=== PATIENT | male | born 1965 | race African-American/Black ===

== ENCOUNTER 2018-05-14 16:34 | Inpatient (IN) ==
[2018-05-14] MEDS ORDERED: Bisacodyl 10 MG Supp RECTAL PRN (17:36)
[2018-05-14] MEDS ORDERED: Acetaminophen 325 MG Tablet PO PRN (17:36)
[2018-05-14] MEDS ORDERED: Sod Chloride 0.9% Inj 1,000 ML IV.CONT ONE (17:46)
[2018-05-14] MEDS ORDERED: ceFAZolin 2 GM Premix Inj 2 GM/50 ML PIGGYBACK IV.SIG SCH (18:00)
--- NOTE | 2018-05-14 18:23 | P.CONTS ---
History of Present Illness Service: Transplant Surgery Consult date: 05/14/18 Reason for Consult: Asdmit for possible donor renal transplant Primary Care Provider: UNKNOWN Chief Complaint: ESRD History of Present Illness: 53 yom with ESRD due to htn. Was transplanted at [facility] on 1997. had a life threatening GI bleed in 2013, which led to failure of his graft. Returned to HD on 07/14/2014. is currently also listed at [facility]. 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 A possible kidney donor has been found for him (final transplant crossmatch is negative). Donor UNOS ID: [id number]. Mr Brent Askew required hemodialysis support since 2013. His last dialysis was this morning. And at the time of admission, patient makes hust drops of urine daily. In the recent days He denies any fevers, recent hospitalizations, and any significant change in his health since he was last seen in our [facility]. Review of Systems Constitutional: Denies anorexia, Denies body ache(s), Denies chills, Denies daytime sleepiness, Denies excessive sweating, Denies fatigue, Denies fever(s), Denies headache(s), Denies increased appetite, Denies lack of energy, Denies malaise, Denies night sweats, Denies weakness, Denies weight gain, Denies weight loss, Denies other Eyes: Denies blind spots, Denies blurry vision, Denies bulging eyes, Denies change in vision, Denies double vision, Denies discharge, Denies dry eyes, Denies floaters, Denies irritation, Denies itchy eyes, Denies loss of vision, Denies pain, Denies requires corrective lenses, Denies sensitivity to light, Denies other Ears, Nose, Mouth, and Throat: Denies abnormal hearing, Denies bleeding gums, Denies bad breath, Denies change in voice, Denies dental pain, Denies difficulty swallowing, Denies dizziness, Denies dry mouth, Denies ear discharge , Denies ear pain, Denies facial pain, Denies headache(s), Denies hearing loss, Denies hoarseness, Denies lip swelling, Denies nosebleed, Denies mouth lesions, Denies mouth pain, Denies nasal congestion, Denies nasal discharge, Denies nasal obstruction, Denies nasal trauma, Denies neck lump, Denies neck pain, Denies nose pain, Denies pain with swallowing, Denies poor balance, Denies post nasal drip, Denies ringing in the ears, Denies sinus pain, Denies sinus pressure , Denies sore throat, Denies throat swelling, Denies tongue swelling, Denies other Cardiovascular: Denies chest pain, Denies chest pain at rest, Denies chest pain with activity, Denies excessive sweating, Denies fainting, Denies fast heart rate, Denies foot swelling, Denies generalized swelling, Denies irregular heart rhythm, Denies leg pain with activity, Denies leg sores, Denies leg swelling, Denies lightheadedness, Denies radiating jaw, neck or arm pain, Denies rapid, pounding, or irregular heartbeat, Denies shortness of breath, Denies shortness of breath with activity, Denies shortness of breath when lying down, Denies shortness of breath causing sudden awakening, Denies slow heart rate, Denies other Respiratory: Denies change in phlegm color, Denies chest congestion, Denies cough, Denies coughing up blood, Denies excessive phlegm production, Denies pain on inspiration, Denies pain with cough, Denies shortness of breath, Denies shortness of breath with activity, Denies snoring, Denies stridor, Denies wheezing, Denies other Gastrointestinal: Reports loose stools, Denies abdominal pain, Denies belching, Denies black, tarry stools, Denies bloating, Denies bright, red blood in stools , Denies change in bowel habits, Denies constant urge to pass stool, Denies change in stools, Denies coffee ground vomit, Denies constipation, Denies cramping, Denies difficulty swallowing, Denies excessive passing of gas, Denies feeling full early, Denies heartburn, Denies incontinent of stools, Denies nausea, Denies pain with swallowing, Denies vomiting, Denies vomiting blood, Denies other Comments: has had 3-4 loose stools daily since his subtotal colectomy in 2013. Genitourinary: Denies blood in semen, Denies blood in urine, Denies decreased urination, Denies difficulty urinating, Denies difficulty with ejaculations, Denies erectile dysfunction, Denies genital lesions, Denies genital pain, Denies painful urination, Denies side pain, Denies frequent nighttime urination , Denies painful ejaculations, Denies penile discharge, Denies scrotal swelling , Denies testicle lump, Denies testicle pain, Denies urinary frequency, Denies urinary hesitancy, Denies urinary incontinence, Denies urinary urgency, Denies other Comments: Has only made drops of urine daily since renal graft failed in 2013. Musculoskeletal: Denies abnormal walking, Denies back pain, Denies body aches, Denies decreased muscle mass, Denies deformity, Denies joint pain, Denies joint swelling, Denies limited joint movement, Denies loss of height, Denies muscle cramps, Denies muscle weakness, Denies neck pain, Denies numbness, Denies radiating pain into limb, Denies stiffness, Denies tingling, Denies other Skin/Breast: Denies acne, Denies bleeding lesions, Denies boil, Denies breast swelling, Denies breast skin changes, Denies breast pain, Denies breast lump, Denies change in breast shape, Denies change in hair, Denies change in skin color, Denies changing lesions, Denies dry skin, Denies excessive hair growth, Denies hair loss, Denies itching, Denies lesions, Denies nail changes, Denies new lesions, Denies nipple discharge, Denies non-healing lesions, Denies redness , Denies sensitivity to light, Denies rash, Denies skin pain, Denies skin ulcer , Denies sores, Denies stretch garzon, Denies unusual bruising, Denies wounds, Denies yellowing of the skin, Denies other Neurologic: Denies abnormal hearing, Denies abnormal movements, Denies abnormal speech, Denies abnormal walking, Denies behavioral changes, Denies burning sensations, Denies confusion, Denies dizziness, Denies fainting, Denies frequent falls, Denies headache(s), Denies lack of coordination, Denies localized weakness, Denies loss of vision, Denies memory loss, Denies numbness, Denies other visual disturbances, Denies radiating pain, Denies restless legs, Denies convulsions, Denies seizure-like activity, Denies sensory deficit, Denies tingling, Denies tingling/numbness/burning sensations, Denies tremor(s), Denies unsteadiness, Denies weakness, Denies other Psychiatric: Denies abnormal sleep pattern, Denies anxiety, Denies behavioral changes, Denies change in appetite, Denies change in sex drive, Denies confusion , Denies depression, Denies difficulty concentrating, Denies hearing things others do not hear, Denies hopelessness, Denies irritability, Denies lack of enjoyment, Denies memory loss, Denies mood swings, Denies panic attacks, Denies paranoia, Denies seeing things others do not see, Denies sensing things others do not sense, Denies tactile hallucinations, Denies thoughts of hurting/killing others, Denies thoughts of hurting/killing yourself, Denies other Endocrine: Denies cold intolerance, Denies excessive sweating, Denies flushing, Denies heat intolerance, Denies increased hunger, Denies increased thirst, Denies increased urination, Denies rapid, pounding, or irregular heartbeat, Denies other Hematologic/Lymphatic: Denies easy bleeding, Denies easy bruising, Denies enlarged lymph nodes, Denies other Allergic/Immunologic: Denies GI upset with certain foods, Denies hives, Denies itchy eyes, Denies lip swelling, Denies seasonal runny nose, Denies throat swelling, Denies tongue swelling, Denies wheezing, Denies other PMFSH - History History Provided By: Patient - Medical History Medical History: Medical History (Last Reviewed 05/14/18 @ 18:09 by Timmy Redman MD) Arteriovenous graft for hemodialysis in place, primary Gout HTN (hypertension) Pneumonia Renal transplant failure and rejection Sleep apnea - Surgical History Surgical History: Surgical History (Last Reviewed 05/14/18 @ 18:09 by Timmy Redman MD) H/O colectomy History of hip replacement, total Renal transplant recipient - Family History Family History: Family History (Last Reviewed 05/14/18 @ 18:09 by Timmy Redman MD) Father HTN (hypertension) Mother Diabetes 1.5, managed as type 2 S/P CABG x 3 HTN (hypertension) - Social History I have reviewed the patient's Social History: Yes - Tobacco History Second Hand Smoke Exposure: No Smoking Status: Never smoker - Alcohol History How Often Do You Have a Drink Containing Alcohol: Never - Substance Use History Substance History: No History of Abuse - Travel History History of Recent Travel: No Recent Travel in the [place] Within the Last 8 Weeks: No Recent Travel Out of the Country Within the Last 8 Weeks: No Medications and Allergies Active Medications: Active Medications Acetaminophen (Tylenol) 650 mg PO Q4H PRN PRN Reason: Headache, fever, pain 1-4 Al Hydroxide/Mg Hydroxide (Milk Of Magnesia Liq) 30 ml PO Q12H PRN PRN Reason: Mild Constipation Bisacodyl (Dulcolax Supp) 10 mg RECTAL DAILY PRN PRN Reason: SEVERE CONSITIPATION Cefazolin Sodium/Dextrose (Ancef 2 Gm Premix Inj) 2 gm in 50 mls @ 100 mls/hr IV.SIG BUTADIENE COMPRESSOR OPERATOR FRANSISCA Stop: 05/17/18 17:48 Sodium Chloride (Ns Inj) 1,000 mls @ 40 mls/hr IV.CONT .Q24H ONE Stop: 05/15/18 17:45 Lactulose (Lactulose Liq) 30 ml PO DAILY PRN PRN Reason: SEVERE CONSITIPATION Mycophenolate Mofetil (Cellcept) 1,000 mg PO ONCE [facility] Stop: 05/17/18 17:47 Ondansetron HCl (Zofran Inj) 4 mg IV.PUSH Q6H PRN PRN Reason: NAUSEA OR VOMITING Sennosides (Senokot) 17.2 mg PO Q12H PRN PRN Reason: Moderate Constipation Sodium Chloride (Ns Flush) 2 ml IV.FLUSH BID FRANSISCA Sodium Chloride (Ns Flush) 2 ml IV.FLUSH UNSCH PRN PRN Reason: FLUSH AFTER USING IV ACCESS Allergies Allergy/AdvReac Type Severity Reaction Status Date / Time No Known Allergies Allergy Unverified 12/28/17 13:34 Home Medications Medication Instructions Recorded Confirmed Type aspirin [Aspirin Low Dose] 81 mg PO DAILY 12/28/17 12/28/17 History colchicine [Colcrys] 0.6 mg PO DAILY PRN 12/28/17 12/28/17 History famotidine [Pepcid] 20 mg PO BID 12/28/17 12/28/17 History lanthanum [Fosrenol] 2,000 mg PO TID 12/28/17 12/28/17 History sevelamer carbonate [Renvela] 3,200 mg PO Q8HR 12/28/17 12/28/17 History Physical Exam - Constitutional no acute distress - Routine HEENT Exam Head: Present: normocephalic, atraumatic Eye: Present: EOMI ENT: Present: mucous membranes moist - Routine Neck Exam Present: supple, full ROM - Routine Respiratory Exam Present: CTA bilaterally - Routine Cardiovascular Exam Present: RRR, S1, S2 - Routine Abdominal Exam Present: soft, normoactive bowel sounds - Routine Exam Comments: No testicular masses - Routine Extremities Exam Present: pulses intact Comments: palp fem/DP/PT bilaterally - Routine Skin Exam Present: intact - Routine Neurological Exam Present: alert, oriented X3 - Detailed Neurological Exam: Coma Scale Verbal Response: Oriented - Routine Psychiatric Exam Present: normal affect, normal thought process Assessment and Plan - Assessment (1) Diabetes 1.5, managed as type 2 Code(s): G47.30 - Sleep apnea, unspecified Status: Acute (2) HTN (hypertension) Code(s): M10.9 - Gout, unspecified Status: Acute - Plan Mr Brent Askew has ESRD secondary to DM/htn, and is being admitted for possible kidney transplantation. The patient will be consented for procedure and transfusion A [facility] increased Risk Consent is not required. The patient is being admitted to the Hospitalists Service. The Transplant Nephrology Service will be consulted. The patient will be assigned to Case Management/Inpatient Status
[2018-05-14] MEDS ORDERED: DOPamine 800 MG/500 ML Premix 800 MG/500 ML PLAST..BAG IV.CONT ONE (18:24)
[2018-05-14 18:32] LABS: Baso % (Auto) 0.6 % (0.0-2.0); Eos # (Auto) 0.1 th/mm3 (0.0-0.4); Eos % (Auto) 1.7 % (0.0-4.0); Hematocrit 31.6 % (39.0-51.0); Hemoglobin 11.3 gm/dL (13.0-17.0); Lymph # (Auto) 2.3 th/mm3 (1.0-4.8); Lymph % (Auto) 41.3 % (9.0-44.0); Mean Corpuscular HGB Conc 35.8 % (32.0-36.0); Mean Corpuscular Volume 103.3 fL (80.0-100.0); Mean Platelet Volume 8.2 fL (7.0-11.0); Mono # (Auto) 0.5 th/mm3 (0.0-0.9); Mono % (Auto) 9.3 % (0.0-8.0); Neut # (Auto) 2.7 th/mm3 (1.8-7.7); Neut % (Auto) 47.1 % (16.0-70.0); Platelet Count 187 th/mm3 (150-450); Red Blood Count 3.06 mil/mm3 (4.50-5.90); Red Cell Distribution Width 13.5 % (11.6-17.2); White Blood Count 5.7 th/mm3 (4.0-11.0)
[2018-05-14] MEDS ORDERED: Hydrocortisone Sod Succinate 100 MG Vial IV.PUSH PRN (18:38)
[2018-05-14] MEDS ORDERED: SODIUM CHLOR 0.9% IV.SIG ONE ×2 (18:38→20:00)
[2018-05-14] MEDS ORDERED: ANTITHYMOCYTE IG IV.SIG ONE ×2 (18:38→20:00)
--- NOTE | 2018-05-14 18:45 | XR ---
EXAM DATE: 05/14/2018 6:37 PM EST AGE/SEX: 53 years / Male INDICATIONS: Evaluate for pneumonia, pneumothorax, or communicable disease. Pre-op for kidney transp lant. CLINICAL DATA: This is the patient's initial encounter. Patient reports that signs and symptoms have been present for 1 day and indicates a pain score of 0/10. MEDICAL/SURGICAL HISTORY: Diabetes mellitus type II. Hypertension. . Renal transplant. COMPARISON: No prior exams available for comparison. FINDINGS: Dialysis catheter overlies superior vena cava. Subclavian stent present. Minimal basilar atelectasis. No effusion. No dense consolidation. Heart size normal. CONCLUSION: Dialysis catheter tip in superior vena cava. Left subclavian stent present. Minimal basilar atelectas is. Electronically signed by: Brent Colon MD 05/14/2018 6:44 PM EST
[2018-05-14 18:52] LABS: Albumin 3.6 g/dL (3.4-5.0); Anion Gap 5 meq/L (5-15); Aspartate Aminotransferase 6 U/L (15-37); Blood Urea Nitrogen 25 mg/dL (7-18); Carbon Dioxide 31.7 meq/L (21.0-32.0); Chloride 99 meq/L (98-107); Glomerular Filtration Rate 7 mL/min (>89); Glucose,Random 92 mg/dL (74-106); Potassium 4.2 meq/L (3.5-5.1); Sodium 136 meq/L (136-145)
--- NOTE | 2018-05-14 18:52 | P.HPIM ---
History of Present Illness Primary Care Physician: UNKNOWN Chief Complaint: I am looking forward to surgery History of Present Illness: 53-year-old male with a history of end-stage renal disease on hemodialysis due to a failed transplant 2 years ago when he had a massive GI bleed requiring total colectomy and started hemodialysis on July 14, 2014 presents to the hospital for renal transplant with Dr. Redman. Of note, patient had a previous kidney transplant on January of 1998 which failed after the massive GI bleed. He reports no complaint chest pain or shortness of breath. He does not have too much urine output and denies any symptoms of dysuria or frequency or urgency. Denies any chills or fever. He is looking forward to this transplant. Diagnosis (1) Diabetes 1.5, managed as type 2: (2) HTN (hypertension): Inpatient Certification Inpatient Certification: I certify that the inpatient services were ordered in accordance with Medicare regulations governing the order. This includes certification that hospital inpatient services are reasonable and necessary and in the case of services not specified as inpatient-only under 42 CFR 419.22(n), that they are appropriately provided as inpatient services in accordance to with the 2-midnight benchmark under 43 CFR 412.3(e) Estimated Total Length of Stay (Days): 3 Plans for Post Hospital Care: Home Review of Systems Constitutional: Reports as per HPI, Reports chills, Reports fatigue, Reports fever(s) and Denies headache(s) Eyes: Denies blurry vision, Denies change in vision and Denies eye pain Ears, Nose, Mouth, and Throat: Denies abnormal hearing, Denies headache(s), Denies mouth pain, Denies nasal congestion, Denies neck pain and Denies sore throat Cardiovascular: Denies chest pain, Denies pedal edema, Denies palpitations and Denies dyspnea Respiratory: Denies cough and Denies dyspnea Gastrointestinal: Denies abdominal pain, Denies constipation, Denies loose stools, Denies nausea and Denies vomiting Genitourinary: Reports as per HPI, Denies hematuria, Denies urinary frequency, Denies urinary hesitancy, Denies urinary incontinence and Denies urinary urgency Musculoskeletal: Denies back pain, Denies myalgias, Denies arthralgias, Denies neck pain and Denies numbness Skin/Breast: Denies new lesions and Denies rash Neurologic: Denies abnormal hearing, Denies headache(s), Denies focal weakness, Denies memory loss and Denies numbness Psychiatric: Denies anxiety, Denies depression and Denies memory loss Endocrine: Denies cold intolerance, Denies heat intolerance and Denies palpitations Hematologic/Lymphatic: Denies easy bleeding and Denies easy bruising PMFSH History History Provided By: Patient Medical History Medical History Diabetes 1.5, managed as type 2 (Chronic) HTN (hypertension) (Chronic) Arteriovenous graft for hemodialysis in place, primary (Chronic) HTN (hypertension) (Chronic) Renal transplant failure and rejection (Chronic) Pneumonia (Resolved) Surgical History Surgical History H/O colectomy (Chronic) History of hip replacement, total (Chronic) Renal transplant recipient (Chronic) Family History Family History Father HTN (hypertension) Mother Diabetes 1.5, managed as type 2 S/P CABG x 3 HTN (hypertension) Social History Social History Substance History: No History of Abuse Second Hand Smoke Exposure: No Smoking Status: Never smoker How Often Do You Have a Drink Containing Alcohol: Never Hx Recent Travel: No Recent Travel in [facility] within the Last 8 Weeks: No Recent Out of Country Travel within the Last 8 Weeks: No Medications and Allergies Allergies Allergy/AdvReac Type Severity Reaction Status Date / Time No Known Allergies Allergy Unverified 12/28/17 13:34 Home Medications Medication Instructions Recorded Confirmed Type aspirin [Aspirin Low Dose] 81 mg PO DAILY 12/28/17 12/28/17 History colchicine [Colcrys] 0.6 mg PO DAILY PRN 12/28/17 12/28/17 History famotidine [Pepcid] 20 mg PO BID 12/28/17 12/28/17 History lanthanum [Fosrenol] 2,000 mg PO TID 12/28/17 12/28/17 History sevelamer carbonate [Renvela] 3,200 mg PO Q8HR 12/28/17 12/28/17 History Active Medications: Active Medications Acetaminophen (Tylenol) 650 mg PO Q4H PRN PRN Reason: Headache, fever, pain 1-4 Al Hydroxide/Mg Hydroxide (Milk Of Magnesia Liq) 30 ml PO Q12H PRN PRN Reason: Mild Constipation Bisacodyl (Dulcolax Supp) 10 mg RECTAL DAILY PRN PRN Reason: SEVERE CONSITIPATION Diphenhydramine HCl (Benadryl Inj) 50 mg IV.PUSH ONCE PRN PRN Reason: anaphylactic reaction Epinephrine HCl (Epinephrine (1:10,000) Inj) 0.1 mg IV.PUSH ONCE PRN PRN Reason: SEE LABEL COMMENTS Hydrocortisone Sodium Succinate (Solucortef Inj) 200 mg IV.PUSH ONCE PRN PRN Reason: anaphylactic readtion Cefazolin Sodium/Dextrose (Ancef 2 Gm Premix Inj) 2 gm in 50 mls @ 100 mls/hr IV.SIG AIRCRAFT ENGINEER FRANSISCA Stop: 05/17/18 17:48 Sodium Chloride (Ns Inj) 1,000 mls @ 40 mls/hr IV.CONT .Q24H ONE Stop: 05/15/18 17:45 Lymphocyte Immune Globulin 120 (mg/ Sodium Chloride) 500 mls @ 83.333 mls/hr IV.SIG ONCE ONE Stop: 05/15/18 00:37 Lactulose (Lactulose Liq) 30 ml PO DAILY PRN PRN Reason: SEVERE CONSITIPATION Methylprednisolone Sodium Succinate (Solumedrol Inj) 500 mg IV.PUSH ONCE ONE Stop: 05/14/18 20:31 Mycophenolate Mofetil (Cellcept) 1,000 mg PO ONCE FRANSISCA Stop: 05/17/18 17:47 Ondansetron HCl (Zofran Inj) 4 mg IV.PUSH Q6H PRN PRN Reason: NAUSEA OR VOMITING Sennosides (Senokot) 17.2 mg PO Q12H PRN PRN Reason: Moderate Constipation Sodium Chloride (Ns Flush) 2 ml IV.FLUSH BID FRANSISCA Sodium Chloride (Ns Flush) 2 ml IV.FLUSH UNSCH PRN PRN Reason: FLUSH AFTER USING IV ACCESS Physical Exam Narrative: GENERAL: Well-nourished well-developed -[place] male in no acute distress SKIN: Warm and dry. HEAD: Atraumatic. Normocephalic. EYES: Pupils equal and round. No scleral icterus. No injection or drainage. ENT: No nasal bleeding or discharge. Mucous membranes pink and moist. NECK: Trachea midline. No JVD. CARDIOVASCULAR: Regular rate and rhythm. RESPIRATORY: No accessory muscle use. Clear to auscultation. Breath sounds equal bilaterally. GASTROINTESTINAL: Abdomen soft, non-tender, nondistended. Normoactive bowel sounds, midline surgical scar, pelvic scar observed. MUSCULOSKELETAL: Extremities without clubbing, cyanosis, or edema. No obvious deformities. NEUROLOGICAL: Awake and alert to person place time and situation. No obvious cranial nerve deficits. Motor grossly within normal limits. Five out of 5 muscle strength in the arms and legs. Normal speech. PSYCHIATRIC: Appropriate mood and affect; insight and judgment normal. Results Labs CBC & Chem 7: 05/14/18 18:12 05/14/18 18:12 Imaging Impressions Chest X-Ray 05/14/18 17:46 CONCLUSION: Dialysis catheter tip in superior vena cava. Left subclavian stent present. Minimal basilar atelectasis. Caprini VTE Risk Assessment Caprini VTE Risk Assessment: Moderate/High Risk (score >= 2) Caprini Risk Assessment Model: Point Value = 1 Point Value = 2 Point Value = 3 Point Value = 5 Age 41-60 Minor surgery BMI > 25 kg/m2 Swollen legs Varicose veins or History of unexplained or recurrent spontaneous Oral contraceptives or hormone replacement Sepsis (< 1 month) Serious lung disease, including pneumonia (< 1 month) Abnormal pulmonary function Acute myocardial infarction Congestive heart failure (< 1 month) History of inflammatory bowel disease Medical patient at bed rest Age 61-74 Arthroscopic surgery Major open surgery (> 45 min) Laparoscopic surgery (> 45 min) Malignancy Confined to bed (> 72 hours) Immobilizing plaster cast Central venous access Age >= 75 History of VTE Family history of VTE Factor V Leiden Prothrombin 19641H Lupus anticoagulant Anticardiolipin antibodies Elevated serum homocysteine Heparin-induced thrombocytopenia Other congenital or acquired thrombophilia Stroke (< 1 month) Elective arthroplasty Hip, pelvis, or leg fracture Acute spinal cord injury (< 1 month) Prophylaxis Regimen: Total Risk Factor Score Risk Level Prophylaxis Regimen 0-1 Low Early ambulation 2 Moderate Order ONE of the following: *Sequential Compression Device (SCD) *Heparin 5000 units SQ BID 3-4 Higher Order ONE of the following medications: *Heparin 5000 units SQ TID *Enoxaparin/Lovenox 40 mg SQ daily (WT < 150 kg, CrCl > 30 mL/min) *Enoxaparin/Lovenox 30 mg SQ daily (WT < 150 kg, CrCl > 10-29 mL/min) *Enoxaparin/Lovenox 30 mg SQ BID (WT < 150 kg, CrCl > 30 mL/min) AND/OR *Sequential Compression Device (SCD) 5 or more Highest Order ONE of the following medications: *Heparin 5000 units SQ TID (Preferred with Epidurals) *Enoxaparin/Lovenox 40 mg SQ daily (WT < 150 kg, CrCl > 30 mL/min) *Enoxaparin/Lovenox 30 mg SQ daily (WT < 150 kg, CrCl > 10-29 mL/min) *Enoxaparin/Lovenox 30 mg SQ BID (WT < 150 kg, CrCl > 30 mL/min) AND *Sequential Compression Device (SCD) Assessment and Plan (1) Diabetes 1.5, managed as type 2: Code(s): G47.30 - Sleep apnea, unspecified Status: Acute (2) HTN (hypertension): Code(s): M10.9 - Gout, unspecified Status: Acute Plan 53-year-old male with a history of end-stage renal disease due to a failed kidney transplant back in 2014 currently on hemodialysis presents for Renal transplant-Dr. Redman will be proceeding with renal transplant today with consulting battalion fire chief Dr. White. Will obtain a EKG, patient is medically clear to proceed with the surgery today. Keep n.p.o. History of end-stage renal disease on current hemodialysisDr. White has been consulted. History of hypertension -we will monitor closely blood pressures after surgery, clonidine as needed for any uncontrolled blood pressure. History of diabetes mellitus -monitor blood sugars with sliding scale insulin. DVT prophylaxisbilateral SCDs after surgery. _ (1) HTN (hypertension) Qualifiers: Hypertension type:
[2018-05-14 18:53] LABS: Alanine Aminotransferase 16 U/L (12-78)
[2018-05-14 18:55] LABS: Alkaline Phosphatase 109 U/L (45-117); Total Protein 8.4 g/dL (6.4-8.2)
--- NOTE | 2018-05-14 19:03 | P.CONNP ---
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 [facility], [facility] - History History Provided By: Patient - Medical History Medical History: Medical History (Last Reviewed 05/14/18 @ 18:53 by James White MD) Diabetes 1.5, managed as type 2 HTN (hypertension) Arteriovenous graft for hemodialysis in place, primary HTN (hypertension) Pneumonia Renal transplant failure and rejection - Surgical History Surgical History: Surgical History (Last Reviewed 05/14/18 @ 18:53 by James White MD) H/O colectomy History of hip replacement, total Renal transplant recipient - Family History Family History: Family History (Last Reviewed 05/14/18 @ 18:53 by James White MD) Father HTN (hypertension) Mother Diabetes 1.5, managed as type 2 S/P CABG x 3 HTN (hypertension) - Social History I have reviewed the patient's Social History: Yes - Tobacco History Second Hand Smoke Exposure: No Smoking Status: Never smoker - Alcohol History How Often Do You Have a Drink Containing Alcohol: Never - Substance Use History Substance History: No History of Abuse - Travel History History of Recent Travel: No Recent Travel in the [place] Within the Last 8 Weeks: No Recent Travel Out of the Country Within the Last 8 Weeks: No Medications and Allergies Active Medications: Active Medications Acetaminophen (Tylenol) 650 mg PO Q4H PRN PRN Reason: Headache, fever, pain 1-4 Al Hydroxide/Mg Hydroxide (Milk Of Magnesia Liq) 30 ml PO Q12H PRN PRN Reason: Mild Constipation Bisacodyl (Dulcolax Supp) 10 mg RECTAL DAILY PRN PRN Reason: SEVERE CONSITIPATION Diphenhydramine HCl (Benadryl Inj) 50 mg IV.PUSH ONCE PRN PRN Reason: anaphylactic reaction Epinephrine HCl (Epinephrine (1:10,000) Inj) 0.1 mg IV.PUSH ONCE PRN PRN Reason: SEE LABEL COMMENTS Hydrocortisone Sodium Succinate (Solucortef Inj) 200 mg IV.PUSH ONCE PRN PRN Reason: anaphylactic readtion Cefazolin Sodium/Dextrose (Ancef 2 Gm Premix Inj) 2 gm in 50 mls @ 100 mls/hr IV.SIG TRANSITION ASSISTANT [facility] Stop: 05/17/18 17:48 Sodium Chloride (Ns Inj) 1,000 mls @ 40 mls/hr IV.CONT .Q24H ONE Stop: 05/15/18 17:45 Lymphocyte Immune Globulin 120 (mg/ Sodium Chloride) 500 mls @ 83.333 mls/hr IV.SIG ONCE ONE Stop: 05/15/18 00:37 Lactulose (Lactulose Liq) 30 ml PO DAILY PRN PRN Reason: SEVERE CONSITIPATION Methylprednisolone Sodium Succinate (Solumedrol Inj) 500 mg IV.PUSH ONCE ONE Stop: 05/14/18 20:31 Mycophenolate Mofetil (Cellcept) 1,000 mg PO ONCE [facility] Stop: 05/17/18 17:47 Ondansetron HCl (Zofran Inj) 4 mg IV.PUSH Q6H PRN PRN Reason: NAUSEA OR VOMITING Sennosides (Senokot) 17.2 mg PO Q12H PRN PRN Reason: Moderate Constipation Sodium Chloride (Ns Flush) 2 ml IV.FLUSH BID FRANSISCA Sodium Chloride (Ns Flush) 2 ml IV.FLUSH UNSCH PRN PRN Reason: FLUSH AFTER USING IV ACCESS Allergies Allergy/AdvReac Type Severity Reaction Status Date / Time No Known Allergies Allergy Unverified 12/28/17 13:34 Home Medications Medication Instructions Recorded Confirmed Type aspirin [Aspirin Low Dose] 81 mg PO DAILY 12/28/17 12/28/17 History colchicine [Colcrys] 0.6 mg PO DAILY PRN 12/28/17 12/28/17 History famotidine [Pepcid] 20 mg PO BID 12/28/17 12/28/17 History lanthanum [Fosrenol] 2,000 mg PO TID 12/28/17 12/28/17 History sevelamer carbonate [Renvela] 3,200 mg PO Q8HR 12/28/17 12/28/17 History Exam - Constitutional no acute distress - Routine HEENT Exam Head: Present: normocephalic Eye: Present: EOMI, PERRL - Routine Neck Exam Present: supple - Routine Respiratory Exam Present: CTA bilaterally - Routine Cardiovascular Exam Present: RRR - Routine Abdominal Exam Present: soft, normoactive bowel sounds - Routine Extremities Exam Present: full ROM Results - Lab Results 05/14/18 18:12 05/14/18 18:12 Assessment and Plan - Assessment (1) ESRD (end stage renal disease) on dialysis Code(s): N18.6 - End stage renal disease; Z99.2 - Dependence on renal dialysis Status: Acute - Plan Patient had hemodialysis his chest x-ray is clear Waiting for BMP Hemoglobin is stable Patient is being offered kidney transplant for tonight Case discussed with Dr. Redman
[2018-05-14] MEDS ORDERED: Heparin 10,000 UNITS/10 ML Vial (for IV use) ONE (19:08)
[2018-05-14] MEDS ORDERED: Protamine Sulfate Inj 50 MG/5 ML Vial ONE (19:08)
[2018-05-14] MEDS ORDERED: Dextrose 50% in Water 50 ML Vial IV.PUSH PRN (19:18)
[2018-05-14 19:51] LABS: Prothrombin Time 9.9 sec (9.8-11.6)
[2018-05-14] MEDS ORDERED: SODIUM CHLOR 0.9% IV.SIG PRN (20:00)
[2018-05-14] MEDS ORDERED: HYDROCORTISONE IV.SIG PRN (20:00)
[2018-05-14] MEDS ORDERED: MethylPREDNISolone Sod Suc Inj 500 MG in Sodium Chlor 0.9% Inj 100 ML IV.SIG ONE (20:00)
[2018-05-14] MEDS ORDERED: MethylPREDNISolone Sod Succinate Inj 125 MG/2 ML Vial IV.PUSH ONE (20:30)
[2018-05-14] MEDS ORDERED: MethylPREDNISolone Sod Succinate Inj 125 MG/2 ML Vial ONE ×2 (21:07→21:15)
[2018-05-14] MEDS ORDERED: MethylPREDNISolone Sod Succinate Inj 40 MG/ML Vial ONE (21:08)
[2018-05-14] MEDS ORDERED: Furosemide Inj 10 ML ONE (21:13)
[2018-05-14] MEDS ORDERED: CUST1000P IRRIGATION ONE (21:15)
[2018-05-14] MEDS ORDERED: Albumin Human 5% Inj 500 ML IV.SIG ONE (22:23)
[2018-05-15 00:13] LABS: ABG Base Excess -0.4 mmol/L (-2-2); ABG PCO2 43 mmHg (38-42); ABG PO2 216 mmHG (61-120)
[2018-05-15] MEDS ORDERED: Naloxone Inj 0.4 MG/ML Vial IV.PUSH PRN (01:24)
[2018-05-15] MEDS ORDERED: HYDROmorphone PF Inj 1 MG/ML Ampul IV.PUSH ONE (01:24)
[2018-05-15] MEDS ORDERED: Dextrose 50% in Water 50 ML Vial IV.PUSH PRN (01:24)
--- NOTE | 2018-05-15 01:32 | P.OP ---
- Preoperative Diagnosis (1) ESRD (end stage renal disease) on dialysis - Postoperative Diagnosis (1) Renal transplant recipient Comment: in remote past Date of procedure: 05/14/18 (case started 05/14/18 and ended 05/15/18) Procedure: donor renal transplant to left iliac fossa Implants: donor kidney and 6 Fr ureteral stent Anesthesia: GETA Surgeon: Amol Mims MD, Shane Redman MD Estimated blood loss (mL): 200 IV fluids (mL): 2,000 (and 500 ml 5% albumin) Pathology: none sent Operation and Findings: I was assistant finance director to Dr. Redman for the placement of the right donor kidney into Mr. Askew's left iliac fossa due to prior failed transplant on his right side. I assisted with the exposure of the iliac vessels, the renal vein and artery ( two arteries on a common donor aortic cuff) anastomosis to the external iliac vessels of the recipient, and the ureteroneocystostomy over a 6 Fr double J stent as well as the fascial closure. The counts were correct. The details of the procedure will be dictated by Dr. Redman. Karl Mims Date of Service 05/14/18 to 05/15/18
[2018-05-15] MEDS: Dextrose 5%/NaCl 0.45% Inj 1,000 ML IV.CONT SCH (01:50)
[2018-05-15] MEDS ORDERED: *morphine SULFATE 4 MG/ML PERIprocedure ONLY ONE ×2 (02:18→02:28)
--- NOTE | 2018-05-15 02:26 | XR ---
EXAM DATE: 05/15/2018 2:19 AM EST AGE/SEX: 53 years / Male INDICATIONS: Central line placement. CLINICAL DATA: This is the patient's subsequent encounter. Patient reports that signs and symptoms h ave been present for 2 days and indicates a pain score of 0/10. MEDICAL/SURGICAL HISTORY: Hypertension. Diabetes mellitus type II. ES-Renal disease. . Renal transplant recipient. AV graft, left arm. COMPARISON: C, CHEST 2V PA&LAT, 05/14/2018. . FINDINGS: Single AP view the chest. Right IJ center venous catheter is now in place with the tip in the mid SVC . Left-sided dialysis catheter remains in place. Left subclavian stent is again seen. Lung volumes ar e low. No evidence of pneumothorax. Mild bilateral lower lung atelectasis cardiomediastinal silhouett e within normal limits. CONCLUSION: Right IJ central venous catheter in place with the tip in the mid SVC and no evidence of pneumothorax . Electronically signed by: Ferdinand Garcia MD 05/15/2018 2:25 AM EST
[2018-05-15] MEDS ORDERED: Labetalol HCl Inj 100 MG/20 ML Vial ONE (02:50)
[2018-05-15 02:55] LABS: Calcium 7.9 mg/dL (8.5-10.1); Carbon Dioxide 26.1 meq/L (21.0-32.0); Magnesium 2.2 mg/dL (1.5-2.5); Phosphorus 4.5 mg/dL (2.5-4.9); Potassium 4.4 meq/L (3.5-5.1)
[2018-05-15] MEDS ORDERED: Hydrocortisone Sod Succinate 100 MG Vial ONE (03:01)
--- NOTE | 2018-05-15 03:11 | P.OP ---
Preoperative Diagnosis: Diabetes/ htn. CKD 5 Postoperative Diagnosis: Diabetes/ htn. CKD 5 Date of procedure: 05/15/18 (Case began on 05/14/2018 and ended on 05/15/2018) Procedure: Double J Ureteral stent placed in ureteral anastomosis Implants: 16 x 6 Fr double J ureteral stent Anesthesia: SHANNANA Surgeon: Timmy Redman MD Pediatric Cardiologist: Amol Mims Estimated blood loss (mL): 200 IV fluids (mL): 2,500 (2000 ml crystalloid. 500 ml albumin) Urine output (mL): 0 Operation and Findings: Cold ischemic time: 25 hour 1 min Warm ischemic time: 21 min (DCD withdrawal) + 37 min (anastomosis time) = 58 min total Intra-Op Findings: Atherosclerosis noted in the left common iliac artery. No significnat atherosclerosis in the left external iliac artery. Good flow into and out of renal allograft after reperfusion Informed consent was obtained from the patient prior to surgery and the ABO was reviewed via primary source for the recipient and donor prior to surgery today. Recipient was brought into the OR and safely placed under general endotracheal anesthesia after the debriefing was performed. The ABO verification form was in the room with the patient and the renal allograft. The [employer] file was checked and the donor ABO verified X 2 and recorded onto the ABO form with the Candidate ABO verified X 2 and recorded on the ABO verification form. The candidate's name was seen on the match run in [employer]. As the anesthesia service was preparing the patient, after removing the kidney from the perfusion pump, we prepared the renal allograft on the back table by removing all extraneous connective tissue. There was a single artery, vein and ureter of sufficient length. Since this was a right kidney, the cephalad and caudal cava was stapled. We repaired two small openings on the renal vein proper with 6-0 prolene on a BV needle. The kidney was stored in sterile ice with preservative solution and replaced in sterile container with top and in a sterile bowel bag. The patient had a Hoffman catheter placed sterilely, and the abdomen was prepped and draped in the usual sterile fashion. We then did our standard surgical time out, reviewing the patient, allergies, antibiotics, operation to be performed, immunosuppression medications and ABO of the donor and recipient. All agreed and we proceeded. The anesthesia service acknowledged the administration of the IV Solumedrol 250 mg and Thymoglobulin infusion. Dr Mims arrived as we were finishing the backtable preparation and was present for the remainder of the case. We then made a left lower quadrant oblique incision from an area about two centimeters medial to the anterior iliac spine to the pubic symphysis. We were able to go through the skin, subcutaneous tissue, fascia, and into the left retroperitoneal space. We kept the cord structures mobilized out of harm's way. We spared the epigastric vessels, although we ligated and transected an inferolateral branch. We had excellent exposure of the external iliac artery and vein and carefully dissected these free of the nerve, keeping this lateral and out of harm's way. The artery was atherosclerotic in the common iliac distribution, but no significant atherosclerosis was noted in the external iliac. The vein was deep but normal otherwise. We gave the patient 2,000 units of intravenous heparin, and allowed this to circulate for three minutes. We then used a Satinsky clamp on the iliac vein and opened the vein with the 11-blade, Roy scissors, and Hepflush. We anastomosed the donor renal vein to the recipient right external iliac vein using 5-0 Prolene in our standard technique. When this venous anastomosis was completed, we went ahead and placed a a bulldog vascular clamp on the proximal left external iliac artery and another bulldog clamp on the distal left external iliac artery, we then opened into the iliac artery with the 11-blade. The 5 arterial punch was used x four, so we had a nice opening of the anterior artery wall to accept the renal artery. Then we used 6-0 Prolene, placing a cephalad and caudal stitch, and then we were able to anastomose the arteries under direct visualization. The patient was given our standard mannitol 12.5 gm as well as Lasix 100 mg IV and the second dose of Solumedrol 250 mg IV prior to reperfusion of the allograft. When the arterial anastomosis was complete and tied, we went ahead and placed gentle vascular bull-dog clamps on the renal artery and renal vein proper, where we removed first the iliac vein clamps and allowed for flow across the venous anastomosis, with excellent hemostasis. We then allowed for the distal artery to open. The anastomotic area opened nicely, signifying no technical issues. We then allowed for forward flow from the artery down the leg. There was excellent flow. A suture wa needed on the venous anastomosis . and a clip was needed on a branch that was on the donor renal vein. We then removed the clamps from the renal artery and vein proper, allowing for flow into and out of the kidney, placed warm irrigation all around the kidney to allow it to go ahead and vasodilate nicely, and there was no need for any suture repairs. Hemostasis was obtained by the use of clips or ties as necessary. Electrocautery was used on the capsule as necessary. The kidney pinked up nicely. There was an approximately 1.5 x 1.5 cm area of missing capsule on the posterior mid aspect of the kidney, directly opposite to the hilum. This did not bleed post perfusion. (Also there was no subcapsular hematoma formation noted, during the remainder of the case , when the area was rechecked, several times). We then went ahead and placed the kidney into the left OR left iliac fossa. It laid nicely and had good color. We then repositioned the Bookwalter retractor and had good exposure of the bladder. The antibiotic irrigant was flushed into the bladder. The bladder distended very nicely into our field. After cutting the ureter to the correct length, we opened it to match the bladder opening, and then placed 5-0 PDS suture at each end. We did place a ureteral stent into the transplant ureter into the collecting system and it laid nicely and then into the bladder. When this was completed we placed two Lembert type sutures of 5-0 PDS. We had good hemostasis. Again the kidney laid nicely in the left iliac fossa. The vessels were laying nicely, with no signs of any obstruction to either inflow or outflow. There was a good pulse in distal external iliac artery also as well as the renal artery. We went ahead and did the count as we prepared to close the fascia. The count was correct. We went ahead and closed the fascia with running #1 PDS suture starting from each end of the wound and tying in the middle. We then used subcuticular suture to approximate the skin. Dermabond was applied to the wound, then an island dressing was applied We had final instrument and sponge counts correct times two. .
[2018-05-15] MEDS: HYDROmorphone PCA Inj 6 MG/30 ML PCA.VIAL PCA PRN (03:24)
--- NOTE | 2018-05-15 03:28 | US ---
EXAM DATE: 05/15/2018 3:18 AM EST AGE/SEX: 53 years / Male INDICATIONS: Post operative transplant. CLINICAL DATA: This is the patient's initial encounter. Patient reports that signs and symptoms have been present for 1 day and indicates a pain score of 7/10. MEDICAL/SURGICAL HISTORY: . Renal transplant failure. Diabetic. HTN. . Renal transplant x 2. AV graft. Colectomy. Hip replacement. CABG. COMPARISON: No prior exams available for comparison. MEASUREMENTS: Transplant Kidney:__10.6 x 5.3 x 5.0 cm Location:__Left lower quadrant Arcuate Arteries Resistive Index: Upper - 0.43, 0.61 Mid - 0.61, 0.58 Lower - 0.59, 0.52 Main Renal Artery Velocity:__83.4 superior and 88 inferior cm/sec Main Renal Vein:__Patent External Iliac Artery Velocity:__118 cm/sec External Iliac Vein:__Patent FINDINGS: Transplant Kidney: Normal echogenicity and cortical thickness. No mass or hydronephrosis. Elongated area of perinephric fluid is seen lateral to the upper pole measuring 4 x 1.7 x 1.6 cm. Urinary Bladder: N/A Other: None. CONCLUSION: 1. Elongated perinephric fluid adjacent to the transplant kidney. 2. Ultrasound otherwise within normal limits. Electronically signed by: Ferdinand Garcia MD 05/15/2018 3:27 AM EST
[2018-05-15 03:44] LABS: Baso % (Auto) 0.2 % (0.0-2.0); Eos % (Auto) 0.1 % (0.0-4.0); Hematocrit 30.1 % (39.0-51.0); Hemoglobin 10.2 gm/dL (13.0-17.0); Lymph % (Auto) 0.3 % (9.0-44.0); Mean Corpuscular HGB Conc 33.8 % (32.0-36.0); Mean Corpuscular Hemoglobin 35.6 pg (27.0-34.0); Mean Corpuscular Volume 105.1 fL (80.0-100.0); Mean Platelet Volume 7.8 fL (7.0-11.0); Mono # (Auto) 0.4 th/mm3 (0.0-0.9); Mono % (Auto) 3.5 % (0.0-8.0); Neut # (Auto) 9.8 th/mm3 (1.8-7.7); Neut % (Auto) 95.9 % (16.0-70.0); Platelet Count 150 th/mm3 (150-450); Red Blood Count 2.86 mil/mm3 (4.50-5.90); Red Cell Distribution Width 13.7 % (11.6-17.2); White Blood Count 10.2 th/mm3 (4.0-11.0)
[2018-05-15] MEDS: Insulin NovoLOG Aspart Correctional Sugar Inj SQ SCH ×5 (04:39→21:25)
[2018-05-15] MEDS ORDERED: Labetalol HCl Inj 100 MG/20 ML Vial IV.PUSH ONE (04:45)
[2018-05-15] MEDS: Sodium Chloride 0.45 % Inj 1,000 ML IV.CONT PRN ×3 (05:00→07:54)
[2018-05-15] MEDS ORDERED: Sodium Chloride 0.45 % Inj 1,000 ML IV.CONT SCH (07:15)
--- NOTE | 2018-05-15 07:36 | P.PNIM ---
Subjective Interval history: f/u; s/p kidney transplant in no acute distress. pain is moderate but on MANAGER SERVICING pump. no fever. d/w the RN and no acute issues over night. Physical Exam Vital signs: Last Vital Signs Temp 97.8 F 05/15/18 04:00 Pulse 87 05/15/18 04:00 Resp 18 05/15/18 04:00 BP 148/85 H 05/15/18 04:00 Pulse Ox 95 05/15/18 04:22 Intake & Output 05/13/18 05/14/18 05/15/18 05/16/18 06:59 06:59 06:59 06:59 Intake Total 2500 / 2500 Output Total 220 / 220 Balance 2280 / 2280 Weight 114 kg Constitutional no acute distress Routine Respiratory Exam Present CTA bilaterally Routine Cardiovascular Exam Present RRR Routine Abdominal Exam Present soft Routine Extremities Exam Comments: no pedal edema. Routine Neurological Exam Present alert and oriented X3 Urinary Catheter Management Indwelling Urethral Catheter: Cath placed during this visit: yes Urethral indwelling: Yes Reason for continuing: Hourly intake/output Insertion date: 05/14/18 Insertion time: 21:45 Results Labs CBC & Chem 7: 05/16/18 04:53 05/16/18 04:53 Imaging Imaging: Impressions Chest X-Ray 05/14/18 17:46 CONCLUSION: Dialysis catheter tip in superior vena cava. Left subclavian stent present. Minimal basilar atelectasis. Renal Ultrasound 05/15/18 01:24 CONCLUSION: 1. Elongated perinephric fluid adjacent to the transplant kidney. 2. Ultrasound otherwise within normal limits. Chest X-Ray 05/15/18 01:26 CONCLUSION: Right IJ central venous catheter in place with the tip in the mid SVC and no evidence of pneumothorax. Assessment and Plan Plan A/P 53-year-old male with a history of end-stage renal disease due to a failed kidney transplant back in 2014 currently on hemodialysis presents for s/p Renal transplant-management per transplant surgery and nephrology- continue with pain control. History of end-stage renal disease on current hemodialysisDrTwan White has been consulted. History of hypertension - clonidine as needed for any uncontrolled blood pressure. History of diabetes mellitus -monitor blood sugars with sliding scale insulin. DVT prophylaxisper transplant surgety.
--- NOTE | 2018-05-15 08:31 | ECG ---
Date Performed: 05/14/2018 Time Performed: 18:59:52 PTAGE: 53 years EKG: Sinus rhythm Normal ECG NO PREVIOUS TRACING DOCTOR: Alex Figueroa Interpretating Date/Time 05/15/2018 08:28:05
[2018-05-15 08:40] LABS: Baso % (Auto) 0.3 % (0.0-2.0); Hematocrit 31.5 % (39.0-51.0); Hemoglobin 10.9 gm/dL (13.0-17.0); Lymph # (Auto) 0.1 th/mm3 (1.0-4.8); Lymph % (Auto) 0.8 % (9.0-44.0); Mean Corpuscular HGB Conc 34.5 % (32.0-36.0); Mean Corpuscular Volume 104.3 fL (80.0-100.0); Mean Platelet Volume 8.2 fL (7.0-11.0); Mono # (Auto) 0.3 th/mm3 (0.0-0.9); Mono % (Auto) 3.2 % (0.0-8.0); Neut # (Auto) 8.8 th/mm3 (1.8-7.7); Neut % (Auto) 95.7 % (16.0-70.0); Platelet Count 145 th/mm3 (150-450); Red Blood Count 3.02 mil/mm3 (4.50-5.90); Red Cell Distribution Width 13.9 % (11.6-17.2); White Blood Count 9.2 th/mm3 (4.0-11.0)
[2018-05-15] MEDS ORDERED: Hydrocortisone Sod Succinate 100 MG Vial IV.PUSH PRN (08:55)
[2018-05-15] MEDS ORDERED: hydrALAZINE HCl Inj 20 MG/ML Vial IV.PUSH PRN (09:04)
--- NOTE | 2018-05-15 09:22 | P.PNTS ---
Subjective Interval history: Pain not well controlled (but patient not using HEALTH SOCIAL WORK PROFESSOR much-reinstructed re HEALTH SOCIAL WORK PROFESSOR usage) Physical Exam Vital signs: Vital Signs 05/14/18 17:46 05/14/18 20:00 05/15/18 01:48 Temperature 97.8 F 97.8 F 97.8 F Pulse Rate 77 80 82 Respiratory Rate 16 16 24 Blood Pressure 154/83 H 145/76 H 137/79 Pulse Oximetry 100 100 100 05/15/18 02:00 05/15/18 02:15 05/15/18 02:20 Temperature Pulse Rate 79 79 Respiratory Rate 24 21 17 Blood Pressure 140/81 153/88 H Pulse Oximetry 97 96 05/15/18 02:30 05/15/18 02:45 05/15/18 03:00 Temperature Pulse Rate 81 82 80 Respiratory Rate 17 16 18 Blood Pressure 153/86 H 151/87 H 143/78 H Pulse Oximetry 96 100 98 05/15/18 03:15 05/15/18 03:30 05/15/18 03:45 Temperature Pulse Rate 82 84 85 Respiratory Rate 18 15 18 Blood Pressure 143/84 H 141/80 H 139/78 Pulse Oximetry 100 97 98 05/15/18 03:54 05/15/18 04:00 05/15/18 04:22 Temperature 97.8 F Pulse Rate 87 Respiratory Rate 20 18 Blood Pressure 148/85 H Pulse Oximetry 98 95 05/15/18 07:00 05/15/18 07:50 Temperature 97.6 F Pulse Rate 93 H Respiratory Rate 17 Blood Pressure 116/89 Pulse Oximetry 98 99 Intake & Output 05/14/18 05/15/18 05/15/18 18:59 06:59 18:59 Intake Total 2500 / 2500 Output Total 220 / 220 Balance 2280 / 2280 - Weight 114 kg Intake: IV 50 / 50 Ancef 2 GM Premix Inj 2 gm In 50 / 50 50 ml @ 100 mls/hr IV.SIG PEARL RESTORER [facility] Rx#:[id number] Anesthesia Amount 2450 / 2450 Output: Estimated Blood Loss 200 / 200 Urine Amount (Catheter) Indwelling Urethral Catheter Other: Date of Last Bowel Movement 05/14/18 Weight On Admission 110.3 kg - Constitutional no acute distress - Routine HEENT Exam Head: Present: normocephalic, atraumatic ENT: Present: mucous membranes moist - Routine Neck Exam Present: supple - Routine Respiratory Exam Present: CTA bilaterally - Routine Cardiovascular Exam Present: RRR, S1, S2 - Routine Abdominal Exam Present: soft, normoactive bowel sounds - Routine Extremities Exam Present: pulses intact - Routine Skin Exam Present: intact - Routine Neurological Exam Present: alert - Detailed Neurological Exam: Coma Scale Verbal Response: Oriented - Routine Psychiatric Exam Present: normal affect - Urinary Catheter Management Indwelling Urethral Catheter Cath placed during this visit: yes Urethral indwelling: Yes Reason for continuing: Hourly intake/output Insertion date: 05/14/18 Insertion time: 21:45 Results - Labs CBC & Chem 7: 05/15/18 07:45 05/15/18 02:04 Laboratory Results - last 24 hr 05/14/18 05/14/18 05/14/18 17:12 18:12 18:12 WBC 5.7 RBC 3.06 L Hgb 11.3 L Hct 31.6 L MCV 103.3 H MCH 37.0 H MCHC 35.8 RDW 13.5 Plt Count 187 MPV 8.2 Neut % (Auto) 47.1 Lymph % (Auto) 41.3 [place] % (Auto) 9.3 H Eos % (Auto) 1.7 Baso % (Auto) 0.6 Neut # (Auto) 2.7 Lymph # (Auto) 2.3 [place] # (Auto) 0.5 Eos # (Auto) 0.1 Baso # (Auto) 0.0 WBC Differential . Differential Comment Auto diff final PT 9.9 INR 1.0 APTT 26.0 Puncture Site Patient Temperature O2 Saturation ABG pH ABG pCO2 ABG pO2 ABG HCO3 ABG O2 Content ABG Base Excess ABG Methemoglobin Hemoglobin Carboxyhemoglobin O2 Delivery Device Vent Setting Inspired O2 Critical Value Sodium 136 Potassium 4.2 Chloride 99 Carbon Dioxide 31.7 Anion Gap 5 BUN 25 H Creatinine 9.98 H Estimated GFR 7 L POC Glucose Random Glucose 92 Calcium 9.0 Phosphorus Magnesium Total Bilirubin 0.4 AST 6 L ALT 16 Alkaline Phosphatase 109 Total Protein 8.4 H Albumin 3.6 Blood Type Antibody Screen Antibody Identification Antigen Identification MTS Gel Crossmatch 05/14/18 05/14/18 05/15/18 18:12 18:12 00:00 WBC RBC Hgb Hct MCV MCH MCHC RDW Plt Count MPV Neut % (Auto) Lymph % (Auto) [place] % (Auto) Eos % (Auto) Baso % (Auto) Neut # (Auto) Lymph # (Auto) [place] # (Auto) Eos # (Auto) Baso # (Auto) WBC Differential Differential Comment PT INR APTT Puncture Site O.r. Patient Temperature 98.6 O2 Saturation 97 ABG pH 7.37 L ABG pCO2 43 H ABG pO2 216 H ABG HCO3 24 ABG O2 Content 23.8 H ABG Base Excess -0.4 ABG Methemoglobin 1.3 Hemoglobin 17.1 H Carboxyhemoglobin 0.7 O2 Delivery Device O.r. Vent Setting O.r. Inspired O2 50 Critical Value No Sodium Potassium Chloride Carbon Dioxide Anion Gap BUN Creatinine Estimated GFR POC Glucose Random Glucose Calcium Phosphorus Magnesium Total Bilirubin AST ALT Alkaline Phosphatase Total Protein Albumin Blood Type O Positive Antibody Screen Positive H Antibody Identification Anti-K Antigen Identification K Antigen - NEGATIVE MTS Gel Crossmatch See Detail 05/15/18 05/15/18 05/15/18 02:04 02:04 02:25 WBC 10.2 D RBC 2.86 L Hgb 10.2 L Hct 30.1 L MCV 105.1 H MCH 35.6 H MCHC 33.8 RDW 13.7 Plt Count 150 MPV 7.8 Neut % (Auto) 95.9 H Lymph % (Auto) 0.3 L [place] % (Auto) 3.5 Eos % (Auto) 0.1 Baso % (Auto) 0.2 Neut # (Auto) 9.8 H Lymph # (Auto) 0.0 L [place] # (Auto) 0.4 Eos # (Auto) 0.0 Baso # (Auto) 0.0 WBC Differential . Differential Comment Auto diff final PT INR APTT Puncture Site Patient Temperature O2 Saturation ABG pH ABG pCO2 ABG pO2 ABG HCO3 ABG O2 Content ABG Base Excess ABG Methemoglobin Hemoglobin Carboxyhemoglobin O2 Delivery Device Vent Setting Inspired O2 Critical Value Sodium 138 Potassium 4.4 Chloride 100 Carbon Dioxide 26.1 Anion Gap 12 BUN 28 H Creatinine 10.21 H* Estimated GFR 7 L POC Glucose 161 H Random Glucose 158 H Calcium 7.9 L D Phosphorus 4.5 Magnesium 2.2 Total Bilirubin AST ALT Alkaline Phosphatase Total Protein Albumin Blood Type Antibody Screen Antibody Identification Antigen Identification MTS Gel Crossmatch 05/15/18 05/15/1805/15/18 02:27 07:45 08:12 WBC 9.2 RBC 3.02 L Hgb 10.9 L Hct 31.5 L MCV 104.3 H MCH 36.0 H MCHC 34.5 RDW 13.9 Plt Count 145 L MPV 8.2 Neut % (Auto) 95.7 H Lymph % (Auto) 0.8 L [place] % (Auto) 3.2 Eos % (Auto) 0.0 Baso % (Auto) 0.3 Neut # (Auto) 8.8 H Lymph # (Auto) 0.1 L [place] # (Auto) 0.3 Eos # (Auto) 0.0 Baso # (Auto) 0.0 WBC Differential . Differential Comment Auto diff final PT 10.0 INR 1.0 APTT Puncture Site Patient Temperature O2 Saturation ABG pH ABG pCO2 ABG pO2 ABG HCO3 ABG O2 Content ABG Base Excess ABG Methemoglobin Hemoglobin Carboxyhemoglobin O2 Delivery Device Vent Setting Inspired O2 Critical Value Sodium Potassium Chloride Carbon Dioxide Anion Gap BUN Creatinine Estimated GFR POC Glucose 153 H Random Glucose Calcium Phosphorus Magnesium Total Bilirubin AST ALT Alkaline Phosphatase Total Protein Albumin Blood Type Antibody Screen Antibody Identification Antigen Identification MTS Gel Crossmatch - Imaging Impressions Chest X-Ray 05/14/18 17:46 CONCLUSION: Dialysis catheter tip in superior vena cava. Left subclavian stent present. Minimal basilar atelectasis. Renal Ultrasound 05/15/18 01:24 CONCLUSION: 1. Elongated perinephric fluid adjacent to the transplant kidney. 2. Ultrasound otherwise within normal limits. Chest X-Ray 05/15/18 01:26 CONCLUSION: Right IJ central venous catheter in place with the tip in the mid SVC and no evidence of pneumothorax. Assessment and Plan - Plan Mr Brent Askew has ESRD secondary to DM/htn, and is being admitted for kidney transplantation. S/P Right donor kidney transplant to left iliac fossa. Allograft function: delayed.. Immunosuppression: induction; Thymo Maint: steroids + Cellcept 1000 mg BID Patient with poorly controlled pain. Will see how he does with HE[employer] SOCIAL WORK PROFESSOR now that he has been re-educated. Will repeat renal US. Will repeat BMP at 1500.
[2018-05-15] MEDS ORDERED: HYDROmorphone PF Inj 4 MG/ML Ampul IV.PUSH ONE (09:23)
[2018-05-15] MEDS: Docusate Sodium 100 MG Capsule PO SCH ×2 (09:56→21:25)
[2018-05-15] MEDS: Pantoprazole Inj 40 MG Vial IV.PUSH SCH (09:56)
--- NOTE | 2018-05-15 10:15 | US ---
EXAM DATE: 05/15/2018 9:57 AM EST AGE/SEX: 53 years / Male INDICATIONS: Increased lab values. CLINICAL DATA: This is the patient's subsequent encounter. Patient reports that signs and symptoms h ave been present for 1 day and indicates a pain score of 4/10. MEDICAL/SURGICAL HISTORY: Hypertension. Diabetes mellitus type II. Renal failure. Renal transp lant failure and rejection. . Renal transplant x 2. Left arm AV fistula. Bilateral hip replacement. Colectomy. COMPARISON: [facility] [place], RENAL TRANSPLANT W DOP, 05/15/2018. . MEASUREMENTS: Transplant Kidney:__10.3 x 5.2 x 5.1 cm Location:__Left lower quadrant Arcuate Arteries Resistive Index: Upper - 0.6 Mid - 0.6 Lower - 0.6 Main Renal Artery Velocity:__152 cm/sec Main Renal Vein:__Patent External Iliac Artery Velocity:__117 cm/sec External Iliac Vein:__Patent FINDINGS: Transplant Kidney: Normal echogenicity and cortical thickness. No mass or hydronephrosis. Small amou nt of perinephric fluid is identified adjacent to the superior aspect of the renal transplant collect ion measures 2.4 x 3.1 cm in size. Urinary Bladder: N/A Other: None. CONCLUSION: 1. Small peritransplant fluid collection. 2. Normal sonographic appearance of the transplant with good cortical medullary distinction and no e vidence of hydronephrosis. 3. Normal Doppler evaluation with peak systolic velocities in the renal transplant and adjacent tricia c artery within normal limits. Electronically signed by: Travis Levy MD 05/15/2018 10:14 AM EST
--- NOTE | 2018-05-15 13:39 | P.PNNP ---
Subjective Interval history: Patient status post surgery complaining of operational slight pain improved after pain medicine Physical Exam Vital signs: Vital Signs 05/14/18 17:46 05/14/18 20:00 05/15/18 01:48 Temperature 97.8 F 97.8 F 97.8 F Pulse Rate 77 80 82 Respiratory Rate 16 16 24 Blood Pressure 154/83 H 145/76 H 137/79 Pulse Oximetry 100 100 100 05/15/18 02:00 05/15/18 02:15 05/15/18 02:20 Temperature Pulse Rate 79 79 Respiratory Rate 24 21 17 Blood Pressure 140/81 153/88 H Pulse Oximetry 97 96 05/15/18 02:30 05/15/18 02:45 05/15/18 03:00 Temperature Pulse Rate 81 82 80 Respiratory Rate 17 16 18 Blood Pressure 153/86 H 151/87 H 143/78 H Pulse Oximetry 96 100 98 05/15/18 03:15 05/15/18 03:30 05/15/18 03:45 Temperature Pulse Rate 82 84 85 Respiratory Rate 18 15 18 Blood Pressure 143/84 H 141/80 H 139/78 Pulse Oximetry 100 97 98 05/15/18 03:54 05/15/18 04:00 05/15/18 04:22 Temperature 97.8 F Pulse Rate 87 Respiratory Rate 20 18 Blood Pressure 148/85 H Pulse Oximetry 98 95 05/15/18 07:00 05/15/18 07:50 05/15/18 11:00 Temperature 97.6 F 97.7 F Pulse Rate 93 H 88 Respiratory Rate 17 12 Blood Pressure 116/89 107/69 Pulse Oximetry 98 99 99 Intake & Output 05/14/18 05/15/18 05/15/18 18:59 06:59 18:59 Intake Total 2500 / 2500 Output Total 220 / 220 30 / 30 Balance 2280 / 2280 -30 / -30 Weight 114 kg Intake: IV 50 / 50 Ancef 2 GM Premix Inj 2 gm In 50 / 50 50 ml @ 100 mls/hr IV.SIG REWIND OPERATOR [facility] Rx#:[id number] Anesthesia Amount 2450 / 2450 Output: Estimated Blood Loss 200 / 200 Urine Amount (Catheter) 20 20 30 / 30 Indwelling Urethral Catheter 20 30 / 30 Other: Date of Last Bowel Movement 05/14/18 Weight On Admission 110.3 kg Narrative: GENERAL: Well-nourished, well-developed patient. SKIN: Warm and dry. HEAD: Normocephalic. EYES: No scleral icterus. No injection or drainage. NECK: Supple, trachea midline. No JVD or lymphadenopathy. CARDIOVASCULAR: Regular rate and rhythm without murmurs, gallops, or rubs. RESPIRATORY: Breath sounds equal bilaterally. No accessory muscle use. GASTROINTESTINAL: Abdomen soft, postsurgical site left side EXTREMITIES: No edema NEUROLOGICAL: Awake, alert, and oriented x 3. Non-focal. - Urinary Catheter Management Indwelling Urethral Catheter Cath placed during this visit: yes Urethral indwelling: Yes Reason for continuing: Hourly intake/output Insertion date: 05/14/18 Insertion time: 21:45 Assessment and Plan - Assessment (1) ESRD (end stage renal disease) on dialysis Code(s): N18.6 - End stage renal disease; Z99.2 - Dependence on renal dialysis Status: Acute - Plan Patient poor urine output post transplant delayed graft function expected Getting Thymoglobulin/CellCept/steroid Hemodialysis may be needed to support him Continue to monitor renal function Pain control per surgery Strict intake and output 1754 called for hyperkalemia 7.4 Ca gluconate/D50/Insulin patient seen during hemodialysis UF 1 L 1K bath tolerating it well BMP Tylenol/Benadryl/solumedrol reordered for tonight prior to Thymo d/w Dr. Redman
[2018-05-15] MEDS ORDERED: Acetaminophen 325 MG Tablet PO ONE ×2 (14:30→22:00)
[2018-05-15] MEDS ORDERED: MethylPREDNISolone Sod Succinate Inj 125 MG/2 ML Vial IV.PUSH ONE ×2 (14:30→22:00)
[2018-05-15] MEDS ORDERED: ANTITHYMOCYTE IG IV.SIG ONE (15:00)
[2018-05-15] MEDS ORDERED: SODIUM CHLOR 0.9% IV.SIG ONE (15:00)
--- NOTE | 2018-05-15 15:43 | DRUGHERB ---
Brent Askew 1965 [id number] Post-op Day #1: Reviewed patient profile and recommended the following * Based on IBW of 85kg, recommended Thymoglobulin for post-op day#1 =130mg * Solumedrol for post-op day#4=306sx * Noted CellCept dose was timed in error for 05/16 and requested to be timed today 05/15/18 * Discussed with MD possibility of DGF in this patient and agreed to hold tacrolimus today, will reaccess in AM * Recommended potassium level today to reaccess levels and possible Veltassa if levels is high * Recommended to add hydralazine IV for BP control * Encouraged patient to use dilaudid CELL CLEANER when needed for pain control
[2018-05-15 16:09] LABS: Calcium 8.6 mg/dL (8.5-10.1); Carbon Dioxide 27.3 meq/L (21.0-32.0)
[2018-05-15 16:11] LABS: Potassium 7.4 meq/L (3.5-5.1)
[2018-05-15] MEDS ORDERED: Acetaminophen 325 MG Tablet PO PRN (16:17)
[2018-05-15] MEDS ORDERED: Sod Chloride 0.9% Inj 1,000 ML IV.CONT PRN (16:17)
[2018-05-15] MEDS ORDERED: Sod Chloride 0.9% Inj 1,000 ML OTHER PRN ×2 (16:17)
[2018-05-15] MEDS ORDERED: Gelatin 12 MM/7 MM Topical Foam TOPICAL PRN (16:17)
[2018-05-15] MEDS ORDERED: Albumin Human 25% Inj 100 ML IV.SIG PRN (16:17)
[2018-05-15] MEDS ORDERED: Heparin 10,000 UNITS/10 ML Vial (for IV use) OTHER PRN ×2 (16:17)
[2018-05-15] MEDS ORDERED: Dextrose 50% in Water 50 ML Vial IV.PUSH ONE (17:00)
[2018-05-15] MEDS ORDERED: Calcium Gluconate Inj 1 GM in Sodium Chlor 0.9% Inj 100 ML IV.SIG ONE (17:00)
[2018-05-16 00:21] LABS: Anion Gap 9 meq/L (5-15); Blood Urea Nitrogen 31 mg/dL (7-18); Calcium 8.7 mg/dL (8.5-10.1); Carbon Dioxide 30.1 meq/L (21.0-32.0); Chloride 97 meq/L (98-107); Glomerular Filtration Rate 8 mL/min (>89); Glucose,Random 138 mg/dL (74-106); Potassium 4.6 meq/L (3.5-5.1); Sodium 136 meq/L (136-145)
[2018-05-16] MEDS: Dextrose 5%/NaCl 0.45% Inj 1,000 ML IV.CONT SCH (05:39)
[2018-05-16 05:53] LABS: Baso % (Auto) 0.2 % (0.0-2.0); Hematocrit 27.4 % (39.0-51.0); Hemoglobin 9.6 gm/dL (13.0-17.0); Lymph % (Auto) 0.6 % (9.0-44.0); Mean Corpuscular HGB Conc 35.1 % (32.0-36.0); Mean Corpuscular Hemoglobin 36.4 pg (27.0-34.0); Mean Corpuscular Volume 103.8 fL (80.0-100.0); Mean Platelet Volume 8.9 fL (7.0-11.0); Mono # (Auto) 0.4 th/mm3 (0.0-0.9); Mono % (Auto) 6.3 % (0.0-8.0); Neut # (Auto) 6.3 th/mm3 (1.8-7.7); Neut % (Auto) 92.9 % (16.0-70.0); Platelet Count 128 th/mm3 (150-450); Red Blood Count 2.64 mil/mm3 (4.50-5.90); Red Cell Distribution Width 13.4 % (11.6-17.2); White Blood Count 6.8 th/mm3 (4.0-11.0)
[2018-05-16 06:20] LABS: Calcium 8.9 mg/dL (8.5-10.1); Carbon Dioxide 29.2 meq/L (21.0-32.0); Magnesium 2.2 mg/dL (1.5-2.5)
[2018-05-16 06:25] LABS: Phosphorus 6.6 mg/dL (2.5-4.9)
--- NOTE | 2018-05-16 07:39 | P.PNIM ---
Subjective Interval history: f/u; s/p kidney transplant in no acute distress. looks and feels better today. pain has improved. no new complaints. Physical Exam Vital signs: Last Vital Signs Temp 98 F 05/16/18 07:00 Pulse 75 05/16/18 07:00 Resp 14 05/16/18 07:00 BP 148/93 H 05/16/18 07:00 Pulse Ox 99 05/16/18 07:00 Intake & Output 05/14/18 05/15/18 05/16/18 05/17/18 06:59 06:59 06:59 06:59 Intake Total 2500 / 2500 2280 / 2280 Output Total 220 / 220 84 / 84 5 / 5 Balance 2280 / 2280 2196 / 2196 -5 / -5 Weight 114 kg 116 kg Constitutional no acute distress Routine Respiratory Exam Present CTA bilaterally Routine Cardiovascular Exam Present RRR Routine Abdominal Exam Present soft Routine Extremities Exam Comments: no pedal edema. Routine Neurological Exam Present alert and oriented X3 Urinary Catheter Management Indwelling Urethral Catheter: Cath placed during this visit: yes Urethral indwelling: Yes Reason for continuing: Hourly intake/output Insertion date: 05/14/18 Insertion time: 21:45 Results Labs CBC & Chem 7: 05/21/18 10:18 05/21/18 04:30 Imaging Imaging: Impressions Renal Ultrasound 05/15/18 08:43 CONCLUSION: 1. Small peritransplant fluid collection. 2. Normal sonographic appearance of the transplant with good cortical medullary distinction and no evidence of hydronephrosis. 3. Normal Doppler evaluation with peak systolic velocities in the renal transplant and adjacent iliac artery within normal limits. Assessment and Plan (1) ESRD (end stage renal disease) on dialysis: Code(s): N18.6 - End stage renal disease; Z99.2 - Dependence on renal dialysis Status: Acute Plan A/P 53-year-old male with a history of end-stage renal disease due to a failed kidney transplant back in 2014 currently on hemodialysis; s/p Renal transplant-management per transplant surgery and nephrology- continue with pain control and Cellcept. Hyperkalemia- had HD yesterday- now has resolved- will monitor. Nephrology following. History of hypertension - clonidine as needed for any uncontrolled blood pressure. History of diabetes mellitus -monitor blood sugars with sliding scale insulin. DVT prophylaxisper transplant surgery.
[2018-05-16] MEDS: Pantoprazole Inj 40 MG Vial IV.PUSH SCH (08:12)
[2018-05-16] MEDS: Docusate Sodium 100 MG Capsule PO SCH ×2 (08:12→22:15)
[2018-05-16] MEDS: Insulin NovoLOG Aspart Correctional Sugar Inj SQ SCH ×5 (08:13→22:15)
--- NOTE | 2018-05-16 09:02 | P.PNTS ---
Subjective Interval history: No new c/o. Would like to eat. Pain 01/12, but says he has not been using the MOP WORKER as he should. Would like to keep the MOP WORKER for now. Physical Exam Vital signs: Vital Signs 05/15/18 11:00 05/15/18 15:00 05/15/18 19:00 Temperature 97.7 F 97.7 F 97.9 F Pulse Rate 88 74 67 Respiratory Rate 12 16 16 Blood Pressure 107/69 116/73 113/70 Pulse Oximetry 99 98 98 05/15/18 20:00 05/15/18 20:43 05/15/18 23:00 Temperature 98.0 F Pulse Rate 66 Respiratory Rate 16 Blood Pressure 112/70 Pulse Oximetry 98 98 99 05/16/18 03:00 05/16/18 07:00 05/16/18 07:51 Temperature 97.8 F 98 F Pulse Rate 70 75 Respiratory Rate 16 14 Blood Pressure 142/86 H 148/93 H Pulse Oximetry 99 99 99 Intake & Output 05/15/18 05/16/18 05/16/18 18:59 06:59 18:59 Intake Total 630 / 630 1650 / 1650 Output Total 45 / 45 39 / 39 9 Balance 585 / 585 1611 / 1611 -9 Weight 116 kg Intake: IV 1650 / 1650 D5W/1/2 NS Inj 1,000 ML @ 40 1040 / 1040 mls/hr IV.CONT .Q24H [facility] Rx#: [id number] Thymoglobulin Inj 130 MG In NS 500 / 500 Inj 500 ML @ 125 mls/hr IV.SIG ONCE ONE Rx#:[id number] Calcium Gluconate Inj 1 GM In 110 / 110 NS Inj 100 ML @ 110 mls/hr IV. SIG ONCE ONE Rx#:[id number] Oral 630 / 630 Output: Urine Amount (Catheter) 45 / 45 39 / 39 9 Indwelling Urethral Catheter 45 / 45 39 / 39 9 - Constitutional no acute distress - Routine HEENT Exam Head: Present: normocephalic, atraumatic Eye: Present: EOMI ENT: Present: mucous membranes moist - Routine Neck Exam Present: supple - Routine Respiratory Exam Present: CTA bilaterally - Routine Cardiovascular Exam Present: RRR, S1, S2 - Routine Abdominal Exam Present: soft, normoactive bowel sounds Comments: Dressing with minimal staining. - Routine Extremities Exam Present: pulses intact - Routine Skin Exam Present: intact - Routine Neurological Exam Present: alert, oriented X3 - Detailed Neurological Exam: Coma Scale Verbal Response: Oriented - Routine Psychiatric Exam Present: normal affect, normal thought process - Urinary Catheter Management Indwelling Urethral Catheter Cath placed during this visit: yes Urethral indwelling: Yes Reason for continuing: Hourly intake/output Insertion date: 05/14/18 Insertion time: 21:45 Results - Labs CBC & Chem 7: 05/16/18 04:53 05/16/18 04:53 Laboratory Results - last 24 hr 05/14/18 05/15/18 05/15/18 18:12 11:53 15:38 WBC RBC Hgb Hct MCV MCH MCHC RDW Plt Count MPV Neut % (Auto) Lymph % (Auto) [place] % (Auto) Eos % (Auto) Baso % (Auto) Neut # (Auto) Lymph # (Auto) [place] # (Auto) Eos # (Auto) Baso # (Auto) WBC Differential Differential Comment Sodium 135 L Potassium 7.4 H* D Chloride 99 Carbon Dioxide 27.3 Anion Gap 9 BUN 41 H Creatinine 11.87 H* D Estimated GFR 5 L POC Glucose 131 H Random Glucose 113 H Calcium 8.6 Phosphorus Magnesium Troponin I B-Natriuretic Peptide Rout Panel Path Interp 05/15/18 05/15/18 05/15/18 17:06 21:21 23:35 WBC RBC Hgb Hct MCV MCH MCHC RDW Plt Count MPV Neut % (Auto) Lymph % (Auto) [place] % (Auto) Eos % (Auto) Baso % (Auto) Neut # (Auto) Lymph # (Auto) [place] # (Auto) Eos # (Auto) Baso # (Auto) WBC Differential Differential Comment Sodium 136 Potassium 4.6 D Chloride 97 L Carbon Dioxide 30.1 Anion Gap 9 BUN 31 H Creatinine 8.92 H Estimated GFR 8 L POC Glucose 130 H 138 H Random Glucose 138 H Calcium 8.7 Phosphorus Magnesium Troponin I Less than 0.02 L B-Natriuretic Peptide Rout Panel Path Interp 05/15/18 05/16/18 05/16/18 23:35 04:53 04:53 WBC 6.8 RBC 2.64 L Hgb 9.6 L Hct 27.4 L MCV 103.8 H MCH 36.4 H MCHC 35.1 RDW 13.4 Plt Count 128 L MPV 8.9 Neut % (Auto) 92.9 H Lymph % (Auto) 0.6 L [place] % (Auto) 6.3 Eos % (Auto) 0.0 Baso % (Auto) 0.2 Neut # (Auto) 6.3 Lymph # (Auto) 0.0 L [place] # (Auto) 0.4 Eos # (Auto) 0.0 Baso # (Auto) 0.0 WBC Differential . Differential Comment Auto diff final Sodium 136 Potassium 5.0 Chloride 97 L Carbon Dioxide 29.2 Anion Gap 10 BUN 39 H Creatinine 9.70 H Estimated GFR 7 L POC Glucose Random Glucose 125 H Calcium 8.9 Phosphorus 6.6 H D Magnesium 2.2 Troponin I B-Natriuretic Peptide 187 H Rout Panel Path Interp 05/16/18 05/16/18 04:53 07:32 WBC RBC Hgb Hct MCV MCH MCHC RDW Plt Count MPV Neut % (Auto) Lymph % (Auto) [place] % (Auto) Eos % (Auto) Baso % (Auto) Neut # (Auto) Lymph # (Auto) [place] # (Auto) Eos # (Auto) Baso # (Auto) WBC Differential Differential Comment Sodium Potassium Chloride Carbon Dioxide Anion Gap BUN Creatinine Estimated GFR POC Glucose 109 Random Glucose Calcium Phosphorus Magnesium Troponin I B-Natriuretic Peptide 216 H Rout Panel Path Interp - Imaging Impressions Renal Ultrasound 05/15/18 08:43 CONCLUSION: 1. Small peritransplant fluid collection. 2. Normal sonographic appearance of the transplant with good cortical medullary distinction and no evidence of hydronephrosis. 3. Normal Doppler evaluation with peak systolic velocities in the renal transplant and adjacent iliac artery within normal limits. Assessment and Plan - Plan Mr Brent Askew has ESRD secondary to DM/htn, and is being admitted for kidney transplantation. S/P Right donor kidney transplant to left iliac fossa. Allograft function: delayed.. Immunosuppression: induction; Thymo Maint: steroids + Cellcept 1000 mg BID Patient still with poorly controlled pain. Would liek to keep MOP WORKER . Underwent HD yesterday with 1 liter removed. K 5.0 this AM. Veltassa 16.8 started. Will repeat BMP at 1500. Diabetic/ renal diet started. OOB today. Encourage IS.
[2018-05-16 09:18] LABS: Reticulocyte Percent 1.7 % (0.4-3.0)
[2018-05-16 09:43] LABS: % Iron Saturation 35.2 % (20-50)
--- NOTE | 2018-05-16 10:01 | DRUGHERB ---
Brent Askew 1965 [id number] Post-op Day #2: Reviewed patient profile and recommended the following: * Hold Thymoglobulin today per protocol * Solumedrol 90mg today per protocol * Noted drop of Hgb to 9.6 from baseline 11.3 on admission (05/14/18), recommended iron panels to assess need of replacements * Discussed with MD DGF status and agreed to hold tacrolimus today * Patient BP, HR and RR stable * Recommended to flush the urinary catheter due to bloody urine that can block the lines. * Checked with patient, will keep Dilaudid DOUGH SCALER AND MIXER today and assess need for oral pain meds in AM. * Encouraged patient to ambulate. Otto Yen, PharmChitra 05/16/18 10:00
--- NOTE | 2018-05-16 10:30 | P.DIET ---
Nutritional Evaluation Type of nutrition evaluation: initial Screening comments: Nutrition Assessment s/p kidney transplant 05/14/18 Subjective Subjective Comments: Pt c/o some pain, states he is hungry and wants to eat. Objective - Diagnosis ESRD - Objective Body Mass Index: 33.0 [place] body weight: 81 kg (Used HT from Eval 12/28/17) % IBW: 136 Body Weight Used for Calculations: IBW Energy Needs - Lower Range (kCal/kg): 28 Energy Needs - Upper Range (kCal/kg): 33 Lower Limit kCal/kg (kCals): 2,268 Upper Limit kCal/kg (kCals): 2,673 Lower Limit Protein Factor (Grams per Kg): 1.2 Upper Limit Protein Factor (Grams per Kg): 1.4 Lower Protein Needs (Protein): 97 Upper Protein Needs (Protein): 113 Dietitian Reviewed in Medical Record: Current diet, Curent medications, Intake & Output, Labs, Medical history Diet Order: 2000 ADA, 60gm protein, 2gm Na, 50meq K+ Objective Comments: Labs of note: K+ 5.0, Cr 9.70, Phos 6.6 UOP: 84mls/24hrs Assessment Assessment: Pt s/p kidney transplant late evening 05/14/18. Pt has delayed graft function, had dialysis r/t elevated K+. Continues to have minimal urine output. Pt's nutritional needs as assessed above. He has tolerated CL's well, advancing diet as ordered above. Will monitor po intake and provide supplements if needed. Pt will be educated on his diet and post-transplant nutrition guidelines. Pt is familiar with this as he has previously been transplanted. Will follow pt with the transplant team. Recommendations: 2000 ADA, 60gm protein, 2gmNa, 50meq K+ Will monitor UOP, Labs. Diet will need to be advanced if pt needs HD.
--- NOTE | 2018-05-16 10:40 | P.PNNP ---
Subjective Interval history: Patient is doing OK pain is better UOP poor Physical Exam Vital signs: Vital Signs 05/15/18 11:00 05/15/18 15:00 05/15/18 19:00 Temperature 97.7 F 97.7 F 97.9 F Pulse Rate 88 74 67 Respiratory Rate 12 16 16 Blood Pressure 107/69 116/73 113/70 Pulse Oximetry 99 98 98 05/15/18 20:00 05/15/18 20:43 05/15/18 23:00 Temperature 98.0 F Pulse Rate 66 Respiratory Rate 16 Blood Pressure 112/70 Pulse Oximetry 98 98 99 05/16/18 03:00 05/16/18 07:00 05/16/18 07:51 Temperature 97.8 F 98 F Pulse Rate 70 75 Respiratory Rate 16 14 Blood Pressure 142/86 H 148/93 H Pulse Oximetry 99 99 99 Intake & Output 05/15/18 05/16/18 05/16/18 18:59 06:59 18:59 Intake Total 630 / 630 1650 / 1650 Output Total 45 / 45 39 / 39 Balance 585 / 585 1611 / 1611 - Weight 116 kg Intake: IV 1650 / 1650 D5W/1/2 NS Inj 1,000 ML @ 40 1040 / 1040 mls/hr IV.CONT .Q24H [facility] Rx#: [id number] Thymoglobulin Inj 130 MG In NS 500 / 500 Inj 500 ML @ 125 mls/hr IV.SIG ONCE ONE Rx#:[id number] Calcium Gluconate Inj 1 GM In 110 / 110 NS Inj 100 ML @ 110 mls/hr IV. SIG ONCE ONE Rx#:[id number] Oral 630 / 630 Output: Urine Amount (Catheter) 45 / 45 39 / 39 Indwelling Urethral Catheter 45 / 45 39 / 39 Narrative: GENERAL: Well-nourished, well-developed patient. SKIN: Warm and dry. HEAD: Normocephalic. EYES: No scleral icterus. No injection or drainage. NECK: Supple, trachea midline. No JVD or lymphadenopathy. CARDIOVASCULAR: Regular rate and rhythm without murmurs, gallops, or rubs. RESPIRATORY: Breath sounds equal bilaterally. No accessory muscle use. GASTROINTESTINAL: Abdomen soft, postsurgical site left side EXTREMITIES: No edema NEUROLOGICAL: Awake, alert, and oriented x 3. Non-focal. - Urinary Catheter Management Indwelling Urethral Catheter Cath placed during this visit: yes Urethral indwelling: Yes Reason for continuing: Hourly intake/output Insertion date: 05/14/18 Insertion time: 21:45 Assessment and Plan - Assessment (1) ESRD (end stage renal disease) on dialysis Code(s): N18.6 - End stage renal disease; Z99.2 - Dependence on renal dialysis Status: Acute - Plan Patient poor urine output post transplant delayed graft function expected Getting Thymoglobulin/CellCept/steroid Hemodialysis may be needed to support him Continue to monitor renal function Pain control per surgery Strict intake and output DGF persists, K trending upwards post dialysis recheck this afternoon On Veltassa
[2018-05-16] MEDS ORDERED: MethylPREDNISolone Sod Succinate Inj 125 MG/2 ML Vial IV.PUSH ONE (12:00)
--- NOTE | 2018-05-16 13:30 | ECHRPT ---
Indication: HEART FAILURE, S/P KIDNEY TRANSPLANT CONCLUSIONS Normal left ventricular size. Mild concentric left ventricular hypertrophy. The left ventricular systolic function is normal with an estimated ejection fraction in the range of 55-60%. There is trace tricuspid valve regurgitation. The estimated pulmonary arterial pressure is 31.3 mmHg. BP: / HR: Rhythm: Sinus MEASUREMENTS (Male / Female) Normal Values Technical Quality:Fair 2D ECHO LV Diastolic Diameter PLAX 5.1 cm 4.2 - 5.9 / 3.9 - 5.3 cm LV Systolic Diameter PLAX 3.9 cm IVS Diastolic Thickness 1.1 cm 0.6 - 1.0 / 0.6 - 0.9 cm LVPW Diastolic Thickness 1.1 cm 0.6 - 1.0 / 0.6 - 0.9 cm LV Relative Wall Thickness 0.4 RV Internal Dim ED PLAX 1.9 cm LVOT Diameter 2.0 cm Aortic Root Diameter 3.3 cm LA Systolic Diameter LX 3.3 cm 3.0 - 4.0 / 2.7 - 3.8 cm M-MODE AV Cusp Separation MM 2.1 cm DOPPLER AV Peak Velocity 131.0 cm/s AV Peak Gradient 6.9 mmHg AV Mean Gradient 4.0 mmHg AV Velocity Time Integral 26.5 cm LVOT Peak Velocity 89.5 cm/s LVOT Peak Gradient 3.2 mmHg LVOT Velocity Time Integral 15.3 cm AV Area Cont Eq vti 1.8 cm AV Area Cont Eq pk 2.1 cm Mitral E Point Velocity 80.5 cm/s Mitral A Point Velocity 86.9 cm/s Mitral E to A Ratio 0.9 LV E' Lateral Velocity 12.5 cm/s Mitral E to LV E' Lateral Ratio 6.4 LV E' Septal Velocity 8.1 cm/s Mitral E to LV E' Septal Ratio 10.0 TR Peak Velocity 231.0 cm/s TR Peak Gradient 21.3 mmHg Right Atrial Pressure 10.0 mmHg Pulmonary Artery Systolic Pressu 31.3 mmHg Right Ventricular Systolic Press 31.3 mmHg PV Peak Velocity 68.4 cm/s PV Peak Gradient 1.9 mmHg FINDINGS LEFT VENTRICLE Normal left ventricular size. Mild concentric left ventricular hypertrophy. The left ventricular systolic function is normal with an estimated ejection fraction in the range of 55-60%. RIGHT VENTRICLE Normal right ventricular size and systolic function. LEFT ATRIUM The left atrial size is normal. RIGHT ATRIUM The right atrial size is normal. ATRIAL SEPTUM Normal atrial septal thickness without atrial level shunting by limited color doppler interrogation. AORTA The aortic root and proximal ascending aorta are normal in size on limited imaging. MITRAL VALVE Structurally normal mitral valve. No mitral valve stenosis or regurgitation. AORTIC VALVE Trileaflet aortic valve. No aortic valve stenosis or regurgitation. TRICUSPID VALVE There is trace tricuspid valve regurgitation. The estimated pulmonary arterial pressure is 31.3 mmHg. PULMONARY VALVE No pulmonary valve regurgitation or stenosis. VESSELS The inferior vena cava is normal in size. PERICARDIUM No pericardial effusion. Alex Figueroa MD, FACC (Electronically Signed) Final Date:16 May 2018 13:29
[2018-05-16] MEDS: HYDROmorphone PCA Inj 6 MG/30 ML PCA.VIAL PCA PRN ×2 (13:54→17:51)
[2018-05-16 14:25] LABS: Calcium 8.5 mg/dL (8.5-10.1); Potassium 5.1 meq/L (3.5-5.1)
[2018-05-16] MEDS: Sodium Chloride 0.45 % Inj 1,000 ML IV.CONT PRN (19:00)
[2018-05-17 04:48] LABS: Baso % (Auto) 0.2 % (0.0-2.0); Hematocrit 24.2 % (39.0-51.0); Hemoglobin 8.5 gm/dL (13.0-17.0); Lymph % (Auto) 0.9 % (9.0-44.0); Mean Corpuscular HGB Conc 35.2 % (32.0-36.0); Mean Corpuscular Hemoglobin 36.2 pg (27.0-34.0); Mean Corpuscular Volume 102.7 fL (80.0-100.0); Mean Platelet Volume 8.9 fL (7.0-11.0); Mono # (Auto) 0.6 th/mm3 (0.0-0.9); Mono % (Auto) 10.5 % (0.0-8.0); Neut # (Auto) 4.8 th/mm3 (1.8-7.7); Neut % (Auto) 88.4 % (16.0-70.0); Platelet Count 107 th/mm3 (150-450); Red Blood Count 2.36 mil/mm3 (4.50-5.90); Red Cell Distribution Width 13.3 % (11.6-17.2); White Blood Count 5.4 th/mm3 (4.0-11.0)
[2018-05-17 05:14] LABS: Anion Gap 12 meq/L (5-15); Blood Urea Nitrogen 69 mg/dL (7-18); Calcium 8.5 mg/dL (8.5-10.1); Carbon Dioxide 26.2 meq/L (21.0-32.0); Chloride 95 meq/L (98-107); Glomerular Filtration Rate 5 mL/min (>89); Glucose,Random 115 mg/dL (74-106); Magnesium 2.2 mg/dL (1.5-2.5); Potassium 4.8 meq/L (3.5-5.1); Sodium 133 meq/L (136-145)
[2018-05-17 05:15] LABS: Phosphorus 7.4 mg/dL (2.5-4.9)
[2018-05-17] MEDS: Dextrose 5%/NaCl 0.45% Inj 1,000 ML IV.CONT SCH (06:06)
--- NOTE | 2018-05-17 07:34 | P.PNIM ---
Subjective Interval history: f/u; s/p kidney transplant in no acute distress. looks fairly comfortable. pain seems to be improving. still with poor urine output. Physical Exam Vital signs: Last Vital Signs Temp 97.4 F L 05/17/18 03:00 Pulse 78 05/17/18 06:00 Resp 20 05/17/18 06:07 BP 148/76 H 05/17/18 03:00 Pulse Ox 98 05/17/18 03:00 Intake & Output 05/15/18 05/16/18 05/17/18 05/18/18 06:59 06:59 06:59 06:59 Intake Total 2500 / 2500 2280 / 2280 1267 / 1267 Output Total 220 / 220 84 / 84 98 / 98 Balance 2280 / 2280 2196 / 2196 1169 / 1169 Weight 114 kg 116 kg 116.1 kg Constitutional no acute distress Routine Respiratory Exam Present CTA bilaterally Routine Cardiovascular Exam Present RRR Routine Abdominal Exam Present soft Routine Extremities Exam Comments: no pedal edema. Routine Neurological Exam Present alert and oriented X3 Urinary Catheter Management Indwelling Urethral Catheter: Cath placed during this visit: yes Urethral indwelling: Yes Reason for continuing: Hourly intake/output Insertion date: 05/14/18 Insertion time: 21:45 Results Labs CBC & Chem 7: 05/21/18 10:18 05/21/18 04:30 Assessment and Plan (1) ESRD (end stage renal disease) on dialysis: Code(s): N18.6 - End stage renal disease; Z99.2 - Dependence on renal dialysis Status: Acute Plan A/P 53-year-old male with a history of end-stage renal disease due to a failed kidney transplant back in 2014 currently on hemodialysis ; s/p Renal transplant-delayed graft function- monitor I/O- on Cellcept- HS as needed- management per transplant surgery and nephrology- continue with pain control. History of end-stage renal disease on current hemodialysisDrTwan White has been consulted. Hyperkalemia; improved- started on Valtassa History of hypertension - clonidine as needed for any uncontrolled blood pressure. History of diabetes mellitus -monitor blood sugars with sliding scale insulin. DVT prophylaxisper transplant surgery.
[2018-05-17] MEDS: Pantoprazole Inj 40 MG Vial IV.PUSH SCH (08:58)
[2018-05-17] MEDS: Docusate Sodium 100 MG Capsule PO SCH ×2 (08:58→22:13)
[2018-05-17] MEDS: Insulin NovoLOG Aspart Correctional Sugar Inj SQ SCH ×4 (08:58→22:13)
[2018-05-17] MEDS ORDERED: Hydrocortisone Sod Succinate 100 MG Vial IV.PUSH PRN (09:02)
--- NOTE | 2018-05-17 09:28 | P.PNTS ---
Subjective Interval history: Patient c/o 30 min episode where he felrt a little short of breath, improved when he made the room cooler. Does feel a little dyspneic while talking at time of our eval. Feels like his ankels are "tight". Feels some abd fulness, which he notices when his fluid is "high". Pain better controlled. Would like to keep the [employer] OF [employer] for another day. Had BM yesterday Physical Exam Vital signs: Vital Signs 05/16/18 10:58 05/16/18 11:00 05/16/18 11:41 Temperature 97.9 F 98.6 F Pulse Rate 68 68 98 H Respiratory Rate 17 20 Blood Pressure 152/71 H 157/82 H Pulse Oximetry 97 94 L 05/16/18 11:45 05/16/18 12:45 05/16/18 13:00 Temperature Pulse Rate 98 H 67 71 Respiratory Rate Blood Pressure Pulse Oximetry 05/16/18 14:00 05/16/18 14:49 05/16/18 14:54 Temperature 97.9 F Pulse Rate 75 68 Respiratory Rate 20 20 Blood Pressure 146/80 H Pulse Oximetry 98 05/16/18 15:00 05/16/18 16:00 05/16/18 17:00 Temperature Pulse Rate 77 79 78 Respiratory Rate Blood Pressure Pulse Oximetry 05/16/18 18:00 05/16/18 19:00 05/16/18 20:00 Temperature 97.5 F L Pulse Rate 81 94 H 85 Respiratory Rate 20 Blood Pressure 136/79 Pulse Oximetry 96 94 L 05/16/18 21:00 05/16/18 22:00 05/16/18 23:00 Temperature 97.6 F Pulse Rate 84 84 80 Respiratory Rate 20 Blood Pressure 135/72 Pulse Oximetry 99 05/17/18 00:00 05/17/18 01:00 05/17/18 02:00 Temperature Pulse Rate 84 82 72 Respiratory Rate Blood Pressure Pulse Oximetry 05/17/18 03:00 05/17/18 04:00 05/17/18 05:00 Temperature 97.4 F L Pulse Rate 81 84 74 Respiratory Rate Blood Pressure 148/76 H Pulse Oximetry 12 L 05/17/18 06:00 05/17/18 06:07 05/17/18 07:00 Temperature 98.0 F Pulse Rate 78 78 Respiratory Rate 20 Blood Pressure 148/78 H Pulse Oximetry 99 Intake & Output 05/16/18 05/17/18 05/17/18 18:59 06:59 18:59 Intake Total 290 / 290 977 / 977 Output Total 44 Balance 236 / 236 933 / 933 Weight 116.1 kg Intake: IV 497 / 497 D5W/1/2 NS Inj 1,000 ML @ 40 451 / 451 mls/hr IV.CONT .Q24H [facility] Rx#: [id number] 1/2 Normal Saline Inj 1,000 ML 46 / 46 @ As Directed IV.CONT .Q0M [facility] Rx#:[id number] Oral 290 / 290 480 / 480 Output: Urine Amount (Catheter) Indwelling Urethral Catheter Other: Date of Last Bowel Movement 05/14/18 05/16/18 05/16/18 # Bowel Movements 1 - Constitutional no acute distress - Routine HEENT Exam Head: Present: normocephalic, atraumatic Eye: Present: EOMI - Routine Neck Exam Present: supple - Routine Respiratory Exam Present: CTA bilaterally - Routine Cardiovascular Exam Present: RRR, S1, S2 - Routine Abdominal Exam Present: soft Comments: Bowel sounds somewhat hypoactive. Abd min distended. Wound CDI without EFT. - Routine Extremities Exam Present: pulses intact - Routine Skin Exam Present: intact - Routine Neurological Exam Present: alert, oriented X3 - Detailed Neurological Exam: Coma Scale Verbal Response: Oriented - Routine Psychiatric Exam Present: normal affect, normal thought process - Urinary Catheter Management Indwelling Urethral Catheter Cath placed during this visit: yes Urethral indwelling: Yes Reason for continuing: Hourly intake/output Insertion date: 05/14/18 Insertion time: 21:45 Results - Labs CBC & Chem 7: 05/17/18 04:30 05/17/18 04:30 Laboratory Results - last 24 hr 05/14/18 05/16/18 05/16/18 18:12 04:53 08:45 WBC RBC Hgb Hct MCV MCH MCHC RDW Plt Count MPV Neut % (Auto) Lymph % (Auto) [place] % (Auto) Eos % (Auto) Baso % (Auto) Neut # (Auto) Lymph # (Auto) [place] # (Auto) Eos # (Auto) Baso # (Auto) WBC Differential Differential Comment Retic Count 1.7 Absolute Retic 43.3 Sodium Potassium Chloride Carbon Dioxide Anion Gap BUN Creatinine Estimated GFR POC Glucose Random Glucose Calcium Phosphorus Magnesium Iron 68 TIBC 193 L % Saturation 35.2 Ferritin 603 H Troponin I MTS Gel Crossmatch See Detail 05/16/18 05/16/18 05/16/18 11:36 13:35 16:02 WBC RBC Hgb Hct MCV MCH MCHC RDW Plt Count MPV Neut % (Auto) Lymph % (Auto) [place] % (Auto) Eos % (Auto) Baso % (Auto) Neut # (Auto) Lymph # (Auto) [place] # (Auto) Eos # (Auto) Baso # (Auto) WBC Differential Differential Comment Retic Count Absolute Retic Sodium 134 L Potassium 5.1 Chloride 98 Carbon Dioxide 28.0 Anion Gap 8 BUN 48 H Creatinine 10.19 H* Estimated GFR 7 L POC Glucose 115 H 120 H Random Glucose 122 H Calcium 8.5 Phosphorus Magnesium Iron TIBC % Saturation Ferritin Troponin I MTS Gel Crossmatch 05/16/18 05/17/18 05/17/18 20:29 04:30 04:30 WBC 5.4 RBC 2.36 L Hgb 8.5 L Hct 24.2 L MCV 102.7 H MCH 36.2 H MCHC 35.2 RDW 13.3 Plt Count 107 L MPV 8.9 Neut % (Auto) 88.4 H Lymph % (Auto) 0.9 L [place] % (Auto) 10.5 H Eos % (Auto) 0.0 Baso % (Auto) 0.2 Neut # (Auto) 4.8 Lymph # (Auto) 0.0 L [place] # (Auto) 0.6 Eos # (Auto) 0.0 Baso # (Auto) 0.0 WBC Differential . Differential Comment Auto diff final Retic Count Absolute Retic Sodium 133 L Potassium 4.8 Chloride 95 L Carbon Dioxide 26.2 Anion Gap 12 BUN 69 H Creatinine 12.03 H* D Estimated GFR 5 L POC Glucose 104 Random Glucose 115 H Calcium 8.5 Phosphorus 7.4 H Magnesium 2.2 Iron TIBC % Saturation Ferritin Troponin I Less than 0.02 L MTS Gel Crossmatch Assessment and Plan - Plan Mr Brent Askew has ESRD secondary to DM/htn, and is being admitted for kidney transplantation. S/P Right donor kidney transplant to left iliac fossa. POD#3 Allograft function: delayed.. Immunosuppression: induction; Thymo Maint: steroids + Cellcept 1000 mg BID + Prograf 2.5 mg BID (starting today) Patient with better controlled pain. 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 Although K is 4.8, patient c/o some dyspnea and some edema. Weight is increased to 116 kg. Will plan for HD today. Continue Veltassa 16.8 mg daily. Thymo 1 mg/ kg to be given post HD. Will repeat BMP after HD. Diabetic/ renal diet. OOB today. Encourage IS.
--- NOTE | 2018-05-17 10:13 | P.DIET ---
Nutritional Evaluation Type of nutrition evaluation: follow-up Screening comments: Nutrition re-assessment and education s/p kidney transplant 05/14/18 Subjective Subjective Comments: Pt states his pain is much improved, reports he is eating fairly well. States he is not drinking as he feels he is retaining fluid. Objective - Diagnosis ESRD - Objective Rogers body weight: 81 kg (Used HT from Eval 12/28/17) % IBW: 136 Body Weight Used for Calculations: IBW Energy Needs - Lower Range (kCal/kg): 28 Energy Needs - Upper Range (kCal/kg): 33 Lower Limit kCal/kg (kCals): 2,268 Upper Limit kCal/kg (kCals): 2,673 Lower Limit Protein Factor (Grams per Kg): 1.2 Upper Limit Protein Factor (Grams per Kg): 1.4 Lower Protein Needs (Protein): 97 Upper Protein Needs (Protein): 113 Dietitian Reviewed in Medical Record: Current diet, Curent medications, Intake & Output, Labs, Medical history Diet Order: 1999 ADA, 60gm protein, 2gm Na, 50meq K+ Objective Comments: Labs of note: K+ 4.8, Cr 12.03, Phosphorus 7.4 UOP: 98mls/24hrs, +1 BM Assessment Assessment: Pt s/p kidney transplant late evening 05/14/18. Pt continues to have delayed graft function with minimal UOP. Pt retaining fluid, will probably have HD today per MD. Pt is tolerating solid food, he is eating 50% of his meals at this time. He is not drinking much because he feels fluid overloaded. Began to educate pt on his diet post transplant. Discussed that his renal restrictions will stay in place until his kidney is functioning well. We reviewed these restrictions and discussed diet changes as kidney improves. Pt is motivated to comply with his diet, expect good compliance. Will continue to monitor PO intake and work with pt and on nutrition after discharge. Will follow pt with the transplant team until discharge and then in the outpatient clinic. Recommendations: 2000 ADA, 60gm protein, 2gmNa, 50meq K+ Will monitor UOP, Labs, clinical course. Dietitian to Monitor: Electrolytes, Renal labs, Glucose level, Intake & Output, Diet tolerance, Weight change, PO Intake, Medical course
--- NOTE | 2018-05-17 10:35 | XR ---
EXAM DATE: 05/17/2018 10:31 AM EST AGE/SEX: 53 years / Male INDICATIONS: Short of breath post renal transplant, evaluate congestive heart failure and assess for pulmonary edema CLINICAL DATA: This is the patient's subsequent encounter. Patient reports that signs and symptoms h ave been present for 3 days and indicates a pain score of 4/10. MEDICAL/SURGICAL HISTORY: Congestive heart failure. Hypertension. Diabetes. . kidney transpla nt COMPARISON: [facility], CHEST 1V SINGLE AP, 05/15/2018. . FINDINGS: Improving lung aeration is noted. There is mild right basilar atelectasis. There is no significant pu lmonary congestion. Heart and mediastinal structures are stable. Central venous catheters are in stable position. CONCLUSION: Mild basilar atelectasis. No evidence of significant congestion Stable central venous catheters. Electronically signed by: Travis Levy MD 05/17/2018 10:34 AM EST
--- NOTE | 2018-05-17 11:54 | DRUGHERB ---
Brent Askew 1965 [id number] Post-op Day #3: Reviewed patient profile and recommended the following: * Third Thymoglobulin dose today according to protocol. Discussed with DGF status and decided to administer Thymoglobulin of 1mg/kg IBW, one dose today and final dose on 05/19/18 for a total of 5mg/kg. * Solumedrol 60mg IV today per protocol * Continue Cellcept 1000mg PO BID. * Recommended to start Tacrolimus 2.5mg PO BID to start at 1800 today, check levels daily. * Due to DGF status will hold off on Valcyte and Bactrim for now * Recommended to start Flomax 0.4mg PO at HS * Pain is well tolerated using Dilaudid GEM TECHNICIAN which will be continued per patient request till tomorrow. * BP well controlled. * Noted HGB continue to trend down, Iron profile showed low iron and low TIBC, might consider one dose of epoetin 4000 units and one dose of iron sucrose 200mg. * Patient declared having difficulty breathing which might be attributed to fluid overload, might consider HD today. * Encouraged patient to ambulate. Otto Yne, Farshad 05/17/18 12:00
--- NOTE | 2018-05-17 13:11 | P.PNNP ---
Subjective Interval history: Patient has some shortness of breath Physical Exam Vital signs: Vital Signs 05/16/18 14:00 05/16/18 14:49 05/16/18 14:54 Temperature 97.9 F Pulse Rate 75 68 Respiratory Rate 20 20 Blood Pressure 146/80 H Pulse Oximetry 98 05/16/18 15:00 05/16/18 16:00 05/16/18 17:00 Temperature Pulse Rate 77 79 78 Respiratory Rate Blood Pressure Pulse Oximetry 05/16/18 18:00 05/16/18 19:00 05/16/18 20:00 Temperature 97.5 F L Pulse Rate 81 94 H 85 Respiratory Rate 20 Blood Pressure 136/79 Pulse Oximetry 96 94 L 05/16/18 21:00 05/16/18 22:00 05/16/18 23:00 Temperature 97.6 F Pulse Rate 84 84 80 Respiratory Rate 20 Blood Pressure 135/72 Pulse Oximetry 99 05/17/18 00:00 05/17/18 01:00 05/17/18 02:00 Temperature Pulse Rate 84 82 72 Respiratory Rate Blood Pressure Pulse Oximetry 05/17/18 03:00 05/17/18 04:00 05/17/18 05:00 Temperature 97.4 F L Pulse Rate 81 84 74 Respiratory Rate Blood Pressure 148/76 H Pulse Oximetry 12 L 05/17/18 06:00 05/17/18 06:07 05/17/18 07:00 Temperature 98.0 F Pulse Rate 78 78 Respiratory Rate 20 Blood Pressure 148/78 H Pulse Oximetry 99 05/17/18 08:00 05/17/18 09:00 05/17/18 10:00 Temperature Pulse Rate 78 72 70 Respiratory Rate Blood Pressure Pulse Oximetry 98 05/17/18 10:08 05/17/18 11:00 05/17/18 12:00 Temperature 98.1 F Pulse Rate 77 70 Respiratory Rate Blood Pressure 138/68 Pulse Oximetry 98 98 Intake & Output 05/16/18 05/17/18 05/17/18 18:59 06:59 18:59 Intake Total 290 / 290 977 / 977 Output Total 54 / 54 44 / 44 / Balance 236 / 236 933 / 933 - / -21 Weight 116.1 kg Intake: IV 497 / 497 D5W/1/2 NS Inj 1,000 ML @ 40 451 / 451 mls/hr IV.CONT .Q24H [facility] Rx#: [id number] 06/06 Normal Saline Inj 1,000 ML 46 / 46 @ As Directed IV.CONT .Q0M [facility] Rx#:[id number] Oral 290 / 290 480 / 480 Output: Urine Amount (Catheter) 54 54 44 / 44 Indwelling Urethral Catheter 54 44 / 44 Other: Date of Last Bowel Movement 05/14/18 05/16/18 05/17/18 # Bowel Movements 1 1 Narrative: GENERAL: Well-nourished, well-developed patient. SKIN: Warm and dry. HEAD: Normocephalic. EYES: No scleral icterus. No injection or drainage. NECK: Supple, trachea midline. No JVD or lymphadenopathy. CARDIOVASCULAR: Regular rate and rhythm without murmurs, gallops, or rubs. RESPIRATORY: Breath sounds equal bilaterally. No accessory muscle use. GASTROINTESTINAL: Abdomen soft, postsurgical site left side EXTREMITIES: No edema NEUROLOGICAL: Awake, alert, and oriented x 3. Non-focal. - Urinary Catheter Management Indwelling Urethral Catheter Cath placed during this visit: yes Urethral indwelling: Yes Reason for continuing: Hourly intake/output Insertion date: 05/14/18 Insertion time: 21:45 Assessment and Plan - Assessment (1) ESRD (end stage renal disease) on dialysis Code(s): N18.6 - End stage renal disease; Z99.2 - Dependence on renal dialysis Status: Acute - Plan Patient poor urine output post transplant delayed graft function expected Getting Thymoglobulin/CellCept/steroid Hemodialysis next Today Urine output slightly improved with bloody urine Continue to monitor renal function Pain control per surgery Strict intake and output Started tacrolimus 2.5 twice daily DGF persists, K trending downward On Veltassa
[2018-05-17] MEDS ORDERED: Iron Sucrose Inj 200 MG in Sodium Chlor 0.9% Inj 100 ML IV.SIG ONE (17:00)
[2018-05-17] MEDS ORDERED: Acetaminophen 325 MG Tablet PO ONE (17:30)
[2018-05-17] MEDS ORDERED: MethylPREDNISolone Sod Succinate Inj 125 MG/2 ML Vial IV.PUSH ONE (17:30)
[2018-05-17] MEDS ORDERED: ANTITHYMOCYTE IG IV.SIG ONE (18:00)
[2018-05-17] MEDS ORDERED: Epoetin Alfa Inj 4,000 UNIT/ML Vial SQ ONE (18:00)
[2018-05-17] MEDS ORDERED: Iron Sucrose Inj 100 MG/5 ML Vial IV.PUSH SCH (18:00)
[2018-05-17] MEDS ORDERED: SODIUM CHLOR 0.9% IV.SIG ONE (18:00)
[2018-05-17] MEDS: Tacrolimus 0.5 MG Capsule PO SCH (18:12)
[2018-05-17 21:45] LABS: Calcium 8.1 mg/dL (8.5-10.1); Carbon Dioxide 30.4 meq/L (21.0-32.0); Potassium 3.6 meq/L (3.5-5.1)
[2018-05-18] MEDS ORDERED: Bisacodyl 10 MG Supp RECTAL PRN (01:26)
[2018-05-18] MEDS: Dextrose 5%/NaCl 0.45% Inj 1,000 ML IV.CONT SCH (01:31)
[2018-05-18] MEDS: Tacrolimus 0.5 MG Capsule PO SCH ×2 (06:33→18:07)
[2018-05-18 06:52] LABS: Baso % (Auto) 0.2 % (0.0-2.0); Hematocrit 23.1 % (39.0-51.0); Lymph % (Auto) 0.9 % (9.0-44.0); Mean Corpuscular HGB Conc 34.6 % (32.0-36.0); Mean Corpuscular Hemoglobin 36.1 pg (27.0-34.0); Mean Corpuscular Volume 104.1 fL (80.0-100.0); Mean Platelet Volume 8.7 fL (7.0-11.0); Mono # (Auto) 0.4 th/mm3 (0.0-0.9); Mono % (Auto) 9.5 % (0.0-8.0); Neut # (Auto) 3.6 th/mm3 (1.8-7.7); Neut % (Auto) 89.4 % (16.0-70.0); Platelet Count 98 th/mm3 (150-450); Red Blood Count 2.22 mil/mm3 (4.50-5.90); Red Cell Distribution Width 13.3 % (11.6-17.2)
[2018-05-18 07:06] LABS: Calcium 7.9 mg/dL (8.5-10.1); Carbon Dioxide 28.3 meq/L (21.0-32.0); Magnesium 2.2 mg/dL (1.5-2.5); Phosphorus 6.1 mg/dL (2.5-4.9); Potassium 4.4 meq/L (3.5-5.1)
[2018-05-18] MEDS: Insulin NovoLOG Aspart Correctional Sugar Inj SQ SCH ×4 (08:20→21:00)
[2018-05-18] MEDS: Pantoprazole Inj 40 MG Vial IV.PUSH SCH (09:29)
[2018-05-18] MEDS: Docusate Sodium 100 MG Capsule PO SCH ×2 (09:31→20:27)
--- NOTE | 2018-05-18 10:45 | P.PNNP ---
Subjective Interval history: patient had hemodialysis yesterday 2 L taken off did ok, patient has been doing better gradual increase in UOP 110 cc Physical Exam Vital signs: Vital Signs 05/17/18 11:00 05/17/18 12:00 05/17/18 13:00 Temperature 98.1 F Pulse Rate 77 70 71 Respiratory Rate Blood Pressure 138/68 Pulse Oximetry 98 05/17/18 14:00 05/17/18 15:00 05/17/18 16:00 Temperature Pulse Rate 72 73 72 Respiratory Rate Blood Pressure Pulse Oximetry 05/17/18 17:00 05/17/18 18:00 05/17/18 19:00 Temperature 98.1 F Pulse Rate 74 73 92 H Respiratory Rate Blood Pressure 159/88 H Pulse Oximetry 05/17/18 20:00 05/17/18 21:00 05/17/18 22:00 Temperature 98.0 F Pulse Rate 94 H 83 90 Respiratory Rate 18 18 18 Blood Pressure 150/86 H 150/88 H 138/78 Pulse Oximetry 98 98 98 05/17/18 23:00 05/18/18 00:00 05/18/18 01:00 Temperature 98.2 F Pulse Rate 84 89 83 Respiratory Rate 18 Blood Pressure 137/80 Pulse Oximetry 98 05/18/18 02:00 05/18/18 03:00 05/18/18 04:00 Temperature 98.4 F Pulse Rate 89 73 77 Respiratory Rate 18 Blood Pressure 126/70 Pulse Oximetry 98 05/18/18 05:00 05/18/18 06:00 05/18/18 07:00 Temperature Pulse Rate 64 84 75 Respiratory Rate 18 Blood Pressure 133/74 Pulse Oximetry 98 05/18/18 08:00 05/18/18 09:00 05/18/18 09:46 Temperature Pulse Rate 87 81 89 Respiratory Rate Blood Pressure Pulse Oximetry 05/18/18 10:15 Temperature Pulse Rate 89 Respiratory Rate Blood Pressure Pulse Oximetry Intake & Output 05/17/18 05/18/18 05/18/18 18:59 06:59 18:59 Intake Total 700 / 700 1399 / 1399 Output Total 2037 / 2037 72 / 72 21 / 21 Balance -1338 / -1338 1327 / 1327 - -21 Weight 115.2 kg Intake: IV 1119 / 1119 D5W/1/2 NS Inj 1,000 ML @ 40 509 / 509 mls/hr IV.CONT .Q24H [facility] Rx#: [id number] Thymoglobulin Inj 85 MG In NS 500 / 500 Inj 500 ML @ 125 mls/hr IV.SIG ONCE ONE Rx#:[id number] Venofer Inj 200 MG In NS Inj 110 / 110 100 ML @ 110 mls/hr IV.SIG ONCE ONE Rx#:[id number] Oral 700 / 700 280 / 280 Output: Hemodialysis Amount 1999 / 1999 Urine Amount (Catheter) Indwelling Urethral Catheter Other: Date of Last Bowel Movement 05/17/18 05/18/18 # Bowel Movements 2 1 Narrative: GENERAL: Well-nourished, well-developed patient. SKIN: Warm and dry. HEAD: Normocephalic. EYES: No scleral icterus. No injection or drainage. NECK: Supple, trachea midline. No JVD or lymphadenopathy. CARDIOVASCULAR: Regular rate and rhythm without murmurs, gallops, or rubs. RESPIRATORY: Breath sounds equal bilaterally. No accessory muscle use. GASTROINTESTINAL: Abdomen soft, postsurgical site left side EXTREMITIES: No edema NEUROLOGICAL: Awake, alert, and oriented x 3. Non-focal. - Urinary Catheter Management Indwelling Urethral Catheter Cath placed during this visit: yes Urethral indwelling: Yes Reason for continuing: Hourly intake/output Insertion date: 05/14/18 Insertion time: 21:45 Assessment and Plan - Assessment (1) ESRD (end stage renal disease) on dialysis Code(s): N18.6 - End stage renal disease; Z99.2 - Dependence on renal dialysis Status: Acute - Plan Patient poor urine output post transplant delayed graft function expected Getting Thymoglobulin/CellCept/steroid Hemodialysis as needed may need it on sat Urine output slightly improved with darkish urine Continue to monitor renal function Pain control per surgery Strict intake and output Started tacrolimus 2.5 twice daily follow levels DGF persists, K trending normal range On Veltassa Lasix 100 mg IV today on Methylprednisolone/Mycophenolate discussed with Dr. Redman the Hoffman comes out and IVF KVO on pain pump BG 122
[2018-05-18] MEDS ORDERED: Sod Chloride 0.9% Inj 1,000 ML IV.CONT SCH (11:06)
--- NOTE | 2018-05-18 11:12 | P.PNTS ---
Subjective Interval history: No new c/o. 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 No N/V. Poor appetite. Physical Exam Vital signs: Vital Signs 05/17/18 12:00 05/17/18 13:00 05/17/18 14:00 Temperature Pulse Rate 70 71 72 Respiratory Rate Blood Pressure Pulse Oximetry 05/17/18 15:00 05/17/18 16:00 05/17/18 17:00 Temperature 98.1 F Pulse Rate 73 72 74 Respiratory Rate Blood Pressure 159/88 H Pulse Oximetry 05/17/18 18:00 05/17/18 19:00 05/17/18 20:00 Temperature 98.0 F Pulse Rate 73 92 H 94 H Respiratory Rate 18 Blood Pressure 150/86 H Pulse Oximetry 98 05/17/18 21:00 05/17/18 22:00 05/17/18 23:00 Temperature 98.2 F Pulse Rate 83 90 84 Respiratory Rate 18 18 18 Blood Pressure 150/88 H 138/78 137/80 Pulse Oximetry 98 98 98 05/18/18 00:00 05/18/18 01:00 05/18/18 02:00 Temperature Pulse Rate 89 83 89 Respiratory Rate Blood Pressure Pulse Oximetry 05/18/18 03:00 05/18/18 04:00 05/18/18 05:00 Temperature 98.4 F Pulse Rate 73 77 64 Respiratory Rate 18 Blood Pressure 126/70 Pulse Oximetry 98 05/18/18 06:00 05/18/18 07:00 05/18/18 08:00 Temperature Pulse Rate 84 75 87 Respiratory Rate 18 Blood Pressure 133/74 Pulse Oximetry 98 05/18/18 09:00 05/18/18 09:46 05/18/18 10:15 Temperature Pulse Rate 81 89 89 Respiratory Rate Blood Pressure Pulse Oximetry 05/18/18 10:45 Temperature Pulse Rate 85 Respiratory Rate Blood Pressure Pulse Oximetry Intake & Output 05/17/18 05/18/18 05/18/18 18:59 06:59 18:59 Intake Total 700 / 700 1399 / 1399 Output Total 2037 / 2038 72 / 72 21 / 21 Balance -1338 / -1338 1327 / 1327 - / -21 Weight 115.2 kg Intake: IV 1119 / 1119 D5W/1/2 NS Inj 1,000 ML @ 40 509 / 509 mls/hr IV.CONT .Q24H [facility] Rx#: [id number] Thymoglobulin Inj 85 MG In NS 500 / 500 Inj 500 ML @ 125 mls/hr IV.SIG ONCE ONE Rx#:[id number] Venofer Inj 200 MG In NS Inj 110 / 110 100 ML @ 110 mls/hr IV.SIG ONCE ONE Rx#:[id number] Oral 700 / 700 280 / 280 Output: Hemodialysis Amount 1999 / 1999 Urine Amount (Catheter) Indwelling Urethral Catheter Other: Date of Last Bowel Movement 05/17/18 05/18/18 # Bowel Movements 2 1 - Constitutional no acute distress - Routine HEENT Exam Head: Present: normocephalic, atraumatic Eye: Present: EOMI ENT: Present: mucous membranes moist - Routine Neck Exam Present: supple - Routine Respiratory Exam Present: CTA bilaterally - Routine Cardiovascular Exam Present: RRR, S1, S2 - Routine Abdominal Exam Present: soft, normoactive bowel sounds Comments: Wound CDI without EFT - Routine Extremities Exam Comments: calves soft. No edema. No cords palpated. - Routine Skin Exam Present: intact - Routine Neurological Exam Present: alert, oriented X3 - Detailed Neurological Exam: Coma Scale Verbal Response: Oriented - Routine Psychiatric Exam Present: normal affect, normal thought process - Urinary Catheter Management Indwelling Urethral Catheter Cath placed during this visit: yes Urethral indwelling: Yes Reason for continuing: Decision to DC catheter Insertion date: 05/14/18 Insertion time: 21:45 Results - Labs CBC & Chem 7: 05/18/18 06:00 05/18/18 06:00 Laboratory Results - last 24 hr 05/17/18 05/17/18 05/17/18 11:56 16:42 20:10 WBC RBC Hgb Hct MCV MCH MCHC RDW Plt Count MPV Prelim Diff (Auto) Neut % (Auto) Lymph % (Auto) [place] % (Auto) Eos % (Auto) Baso % (Auto) Neut # (Auto) Lymph # (Auto) [place] # (Auto) Eos # (Auto) Baso # (Auto) WBC Differential Diff Scan Differential Comment Platelet Estimate Platelet Morphology Sodium 137 Potassium 3.6 D Chloride 97 L Carbon Dioxide 30.4 Anion Gap 10 BUN 43 H Creatinine 8.38 H Estimated GFR 8 L POC Glucose 93 85 Random Glucose 145 H Calcium 8.1 L Phosphorus Magnesium 05/17/18 05/18/18 05/18/18 22:07 06:00 06:00 WBC 4.0 RBC 2.22 L Hgb 8.0 L Hct 23.1 L MCV 104.1 H MCH 36.1 H MCHC 34.6 RDW 13.3 Plt Count 98 L MPV 8.7 Prelim Diff (Auto) Slide review pending Neut % (Auto) 89.4 H Lymph % (Auto) 0.9 L [place] % (Auto) 9.5 H Eos % (Auto) 0.0 Baso % (Auto) 0.2 Neut # (Auto) 3.6 Lymph # (Auto) 0.0 L [place] # (Auto) 0.4 Eos # (Auto) 0.0 Baso # (Auto) 0.0 WBC Differential . Diff Scan Auto diff confirmed Differential Comment . Platelet Estimate Low L Platelet Morphology Enlarged H Sodium 135 L Potassium 4.4 D Chloride 96 L Carbon Dioxide 28.3 Anion Gap 11 BUN 55 H Creatinine 9.74 H Estimated GFR 7 L POC Glucose 163 H Random Glucose 122 H Calcium 7.9 L Phosphorus 6.1 H D Magnesium 2.2 05/18/18 08:09 WBC RBC Hgb Hct MCV MCH MCHC RDW Plt Count MPV Prelim Diff (Auto) Neut % (Auto) Lymph % (Auto) [place] % (Auto) Eos % (Auto) Baso % (Auto) Neut # (Auto) Lymph # (Auto) [place] # (Auto) Eos # (Auto) Baso # (Auto) WBC Differential Diff Scan Differential Comment Platelet Estimate Platelet Morphology Sodium Potassium Chloride Carbon Dioxide Anion Gap BUN Creatinine Estimated GFR POC Glucose 120 H Random Glucose Calcium Phosphorus Magnesium Assessment and Plan - Plan Mr Brent Askew has ESRD secondary to DM/htn, and is being admitted for kidney transplantation. S/P Right donor kidney transplant to left iliac fossa. POD#3 Allograft function: delayed.. Immunosuppression: induction; Thymo Maint: steroids + Cellcept 1000 mg BID + Prograf 2.5 mg BID Patient with better controlled pain. 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 normokalemic, No new c/o. No HD today. Continue Veltassa 16.8 mg daily. Thymo 1 mg/kg to be given tomorrow. Diabetic/ renal diet. Will add supplement. OOB today. Encourage IS.
[2018-05-18] MEDS ORDERED: Epoetin Alfa Inj 4,000 UNIT/ML Vial SQ ONE (12:00)
[2018-05-18] MEDS ORDERED: MethylPREDNISolone Sod Succinate Inj 40 MG/ML Vial IV.PUSH ONE (12:00)
--- NOTE | 2018-05-18 12:49 | P.DIET ---
Nutritional Evaluation Type of nutrition evaluation: follow-up Screening comments: Nutrition education s/p kidney transplant 05/14/18 Subjective Subjective Comments: Pt verbalizes a fair appetite, no problems with his diet at this time. Pt also states he does not have diabetes and never has which is confirmed by his . Objective - Diagnosis ESRD - Objective [place] body weight: 81 kg (Used HT from Eval 12/28/17) % IBW: 136 Body Weight Used for Calculations: IBW Energy Needs - Lower Range (kCal/kg): 28 Energy Needs - Upper Range (kCal/kg): 33 Lower Limit kCal/kg (kCals): 2,268 Upper Limit kCal/kg (kCals): 2,673 Lower Limit Protein Factor (Grams per Kg): 1.2 Upper Limit Protein Factor (Grams per Kg): 1.4 Lower Protein Needs (Protein): 97 Upper Protein Needs (Protein): 113 Dietitian Reviewed in Medical Record: Current diet, Curent medications, Intake & Output, Labs Diet Order: 80gm protein, 2gm Na, 60meq K+ Oral Diet Intake Amount: Fair 50-75% Objective Comments: Labs of note: K+ 4.4, Cr 12.03, Phosphorus 6.1 UOP: 110mls/24hrs, +1 BM Assessment Assessment: Pt s/p kidney transplant late evening 05/14/18. Pt continues to have delayed graft function with minimal UOP, he was dialyzed yesterday. Pt is tolerating solid food, he is eating 50% of his meals at this time. I saw and educated Brent Askew and his on nutrition after transplant, including the importance of drinking adequate water and following heart healthy food guidelines. Discussed that his renal restrictions will stay in place until his kidney is functioning well. I explained that medications may elevate cholesterol and triglycerides. I discussed the monitoring of glucose while on steroids and the possibility of prograf-induced diabetes. Also discussed the possibility of weight gain related to increased appetite and medications. Stressed the importance of maintaining an active lifestyle. I answered all of patient's questions. Will followup with pt on Monday for discharge planning. Recommendations: Continue to monitor clinical course with the transplant team. Dietitian to Monitor: Electrolytes, Renal labs, Glucose level, Intake & Output, Diet tolerance, Weight change, PO Intake, Medical course
[2018-05-18] MEDS ORDERED: Iron Sucrose Inj 200 MG in Sodium Chlor 0.9% Inj 100 ML IV.SIG ONE (13:00)
--- NOTE | 2018-05-18 16:03 | DRUGHERB ---
Askew Brent Mora 1965 [id number] Post-op Day #4: Reviewed patient profile and recommended the following: * No thymoglobulin today, planning for final dose of 1mg/kg IBW on 05/19/18 for a total of 5mg/kg. * Solumedrol 30mg IV today per protocol. * Continue Cellcept 1000mg PO BID * Continue tacrolimus, might increase dose if levels is low * Recommended to start Valcyte * Might hold off on Bactrim today for risk of hyperkalemia in DGF setting * BP mildly elevated, continue to cover with PRN clonidine and hydralazine if needed * Might consider discontinuing replacement fluids * Pain is well tolerated using Dilaudid CLOUD ENGINEER which will be continued per patient request till tomorrow. * Noted HGB continue to trend down, might consider second dose of epoetin 4000 units and iron sucrose 200mg. Otto Yen, Farshad 05/18/18 12:00
--- NOTE | 2018-05-18 17:14 | P.PN ---
Subjective Interval history: The patient was seen earlier today . Up in the chair. Not eating much says does not have much appetite. Says he is up and ambulating without any difficulties. No chest pain or shortness of breath. No nausea or vomiting. Urine says is still bloody however is clearing up. Still with pain at the surgical site. 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 Vital signs: Vital Signs 05/17/18 18:00 05/17/18 19:00 05/17/18 20:00 Temperature 98.0 F Pulse Rate 73 92 H 94 H Respiratory Rate 18 Blood Pressure 150/86 H Pulse Oximetry 98 05/17/18 21:00 05/17/18 22:00 05/17/18 23:00 Temperature 98.2 F Pulse Rate 83 90 84 Respiratory Rate 18 18 18 Blood Pressure 150/88 H 138/78 137/80 Pulse Oximetry 98 98 98 05/18/18 00:00 05/18/18 01:00 05/18/18 02:00 Temperature Pulse Rate 89 83 89 Respiratory Rate Blood Pressure Pulse Oximetry 05/18/18 03:00 05/18/18 04:00 05/18/18 05:00 Temperature 98.4 F Pulse Rate 73 77 64 Respiratory Rate 18 Blood Pressure 126/70 Pulse Oximetry 98 05/18/18 06:00 05/18/18 07:00 05/18/18 08:00 Temperature Pulse Rate 84 75 87 Respiratory Rate 18 Blood Pressure 133/74 Pulse Oximetry 98 05/18/18 09:00 05/18/18 09:46 05/18/18 10:15 Temperature Pulse Rate 81 89 89 Respiratory Rate Blood Pressure Pulse Oximetry 05/18/18 10:45 05/18/18 11:00 05/18/18 13:00 Temperature 97.6 F Pulse Rate 85 81 82 Respiratory Rate 16 Blood Pressure 162/79 H Pulse Oximetry 99 05/18/18 14:00 05/18/18 15:00 05/18/18 16:00 Temperature Pulse Rate 79 79 77 Respiratory Rate 16 Blood Pressure 141/73 H Pulse Oximetry 97 Intake & Output 05/17/18 05/18/18 05/18/18 18:59 06:59 18:59 Intake Total 700 / 700 1399 / 1399 480 / 480 Output Total 2037 / 2037 72 / 72 42 / 42 Balance -1338 / -1338 1327 / 1327 438 / 438 Weight 115.2 kg Intake: IV 1119 / 1119 D5W/1/2 NS Inj 1,000 ML @ 40 509 / 509 mls/hr IV.CONT .Q24H [facility] Rx#: [id number] Thymoglobulin Inj 85 MG In NS 500 / 500 Inj 500 ML @ 125 mls/hr IV.SIG ONCE ONE Rx#:[id number] Venofer Inj 200 MG In NS Inj 110 / 110 100 ML @ 110 mls/hr IV.SIG ONCE ONE Rx#:[id number] Oral 700 / 700 280 / 280 480 / 480 Output: Hemodialysis Amount 1999 / 1999 Urine Amount (Catheter) Indwelling Urethral Catheter Other: Date of Last Bowel Movement 05/17/18 05/18/18 # Bowel Movements 2 1 Narrative: GENERAL: This is a very pleasant 53-year-old male, well-nourished, well- developed patient. CARDIOVASCULAR: Regular rate and rhythm without murmurs, gallops, or rubs. RESPIRATORY: Breath sounds equal bilaterally. No accessory muscle use. GASTROINTESTINAL: Abdomen soft, postsurgical site left side healing very well. EXTREMITIES: No edema NEUROLOGICAL: Awake, alert, and oriented x 3. Non-focal. - Urinary Catheter Management Indwelling Urethral Catheter Cath placed during this visit: yes Urethral indwelling: Yes Reason for continuing: Decision to DC catheter Insertion date: 05/14/18 Insertion time: 21:45 Results - Labs CBC & Chem 7: 05/18/18 06:00 05/18/18 06:00 Laboratory Results - last 24 hr 05/17/18 05/17/18 05/18/18 20:10 22:07 06:00 WBC 4.0 RBC 2.22 L Hgb 8.0 L Hct 23.1 L MCV 104.1 H MCH 36.1 H MCHC 34.6 RDW 13.3 Plt Count 98 L MPV 8.7 Prelim Diff (Auto) Slide review pending Neut % (Auto) 89.4 H Lymph % (Auto) 0.9 L [place] % (Auto) 9.5 H Eos % (Auto) 0.0 Baso % (Auto) 0.2 Neut # (Auto) 3.6 Lymph # (Auto) 0.0 L [place] # (Auto) 0.4 Eos # (Auto) 0.0 Baso # (Auto) 0.0 WBC Differential . Diff Scan Auto diff confirmed Differential Comment . Platelet Estimate Low L Platelet Morphology Enlarged H Sodium 137 Potassium 3.6 D Chloride 97 L Carbon Dioxide 30.4 Anion Gap 10 BUN 43 H Creatinine 8.38 H Estimated GFR 8 L POC Glucose 163 H Random Glucose 145 H Calcium 8.1 L Phosphorus Magnesium Tacrolimus 05/18/18 05/18/18 05/18/18 06:00 06:00 08:09 WBC RBC Hgb Hct MCV MCH MCHC RDW Plt Count MPV Prelim Diff (Auto) Neut % (Auto) Lymph % (Auto) [place] % (Auto) Eos % (Auto) Baso % (Auto) Neut # (Auto) Lymph # (Auto) [place] # (Auto) Eos # (Auto) Baso # (Auto) WBC Differential Diff Scan Differential Comment Platelet Estimate Platelet Morphology Sodium 135 L Potassium 4.4 D Chloride 96 L Carbon Dioxide 28.3 Anion Gap 11 BUN 55 H Creatinine 9.74 H Estimated GFR 7 L POC Glucose 120 H Random Glucose 122 H Calcium 7.9 L Phosphorus 6.1 H D Magnesium 2.2 Tacrolimus Less than 2.0 L 05/18/18 11:59 WBC RBC Hgb Hct MCV MCH MCHC RDW Plt Count MPV Prelim Diff (Auto) Neut % (Auto) Lymph % (Auto) [place] % (Auto) Eos % (Auto) Baso % (Auto) Neut # (Auto) Lymph # (Auto) [place] # (Auto) Eos # (Auto) Baso # (Auto) WBC Differential Diff Scan Differential Comment Platelet Estimate Platelet Morphology Sodium Potassium Chloride Carbon Dioxide Anion Gap BUN Creatinine Estimated GFR POC Glucose 97 Random Glucose Calcium Phosphorus Magnesium Tacrolimus Assessment and Plan - Assessment (1) ESRD (end stage renal disease) on dialysis Code(s): N18.6 - End stage renal disease; Z99.2 - Dependence on renal dialysis Status: Acute - Plan 53-year-old male with a history of end-stage renal disease due to a failed kidney transplant back in 2014 currently on hemodialysis ; s/p Renal transplant-delayed graft function- monitor I/O- on Cellcept- HS as needed- management per transplant surgery and nephrology- continue with pain control. History of end-stage renal disease on current hemodialysisDr. White has been consulted and is following. Hyperkalemia; improved- started on Valtassa History of hypertension - clonidine as needed for any uncontrolled blood pressure. History of diabetes mellitus -monitor blood sugars with sliding scale insulin. DVT prophylaxisper transplant surgery. Discharge plan discharge when cleared by Specialists. Likely discharge on Monday Discussed with the patient, nurse
[2018-05-18] MEDS: HYDROmorphone PCA Inj 6 MG/30 ML PCA.VIAL PCA PRN (18:14)
[2018-05-19] MEDS: Tacrolimus 0.5 MG Capsule PO SCH ×2 (05:44→18:00)
[2018-05-19 06:10] LABS: Eos % (Auto) 0.1 % (0.0-4.0); Hematocrit 22.2 % (39.0-51.0); Hemoglobin 7.7 gm/dL (13.0-17.0); Lymph # (Auto) 0.3 th/mm3 (1.0-4.8); Mean Corpuscular HGB Conc 34.5 % (32.0-36.0); Mean Corpuscular Hemoglobin 35.7 pg (27.0-34.0); Mean Corpuscular Volume 103.3 fL (80.0-100.0); Mono # (Auto) 0.5 th/mm3 (0.0-0.9); Mono % (Auto) 11.2 % (0.0-8.0); Neut # (Auto) 3.3 th/mm3 (1.8-7.7); Neut % (Auto) 80.7 % (16.0-70.0); Platelet Count 98 th/mm3 (150-450); Red Blood Count 2.15 mil/mm3 (4.50-5.90); Red Cell Distribution Width 13.3 % (11.6-17.2); White Blood Count 4.1 th/mm3 (4.0-11.0)
[2018-05-19 06:37] LABS: Carbon Dioxide 25.9 meq/L (21.0-32.0); Magnesium 2.2 mg/dL (1.5-2.5); Phosphorus 7.4 mg/dL (2.5-4.9); Potassium 4.2 meq/L (3.5-5.1)
[2018-05-19] MEDS: Dextrose 5%/NaCl 0.45% Inj 1,000 ML IV.CONT SCH (07:03)
[2018-05-19 07:19] LABS: Platelet Morphology Normal (Normal)
--- NOTE | 2018-05-19 09:20 | P.PNNP ---
Subjective Interval history: Seen during Hemodialysis. Denies any shortness of breath, chest pain, nausea, or vomiting. <Tiffanie Azar - Last Filed: 05/19/18 09:09> Physical Exam Vital signs: Vital Signs 05/18/18 09:46 05/18/18 10:15 05/18/18 10:45 Temperature Pulse Rate 89 89 85 Respiratory Rate Blood Pressure Pulse Oximetry 05/18/18 11:00 05/18/18 13:00 05/18/18 14:00 Temperature 97.6 F Pulse Rate 81 82 79 Respiratory Rate 16 Blood Pressure 162/79 H Pulse Oximetry 99 05/18/18 15:00 05/18/18 16:00 05/18/18 17:00 Temperature Pulse Rate 79 77 79 Respiratory Rate 16 Blood Pressure 141/73 H Pulse Oximetry 97 05/18/18 18:00 05/18/18 19:00 05/18/18 20:00 Temperature 98.6 F Pulse Rate 80 72 72 Respiratory Rate 18 Blood Pressure 159/87 H Pulse Oximetry 100 05/18/18 21:00 05/18/18 22:00 05/18/18 23:00 Temperature Pulse Rate 74 72 75 Respiratory Rate Blood Pressure Pulse Oximetry 05/19/18 00:00 05/19/18 01:00 05/19/18 02:00 Temperature 98.6 F Pulse Rate 69 71 71 Respiratory Rate 18 Blood Pressure 154/84 H Pulse Oximetry 98 05/19/18 03:00 05/19/18 04:00 05/19/18 05:00 Temperature 98.5 F Pulse Rate 65 65 70 Respiratory Rate 19 Blood Pressure 153/79 H Pulse Oximetry 98 05/19/18 06:00 Temperature Pulse Rate 72 Respiratory Rate Blood Pressure Pulse Oximetry Intake & Output 05/18/18 05/19/18 05/19/18 18:59 06:59 18:59 Intake Total 830 / 830 480 / 480 960 / 960 Output Total 92 / 92 92 / 92 Balance 738 / 738 388 / 388 960 / 960 Intake: IV 110 / 110 960 / 960 D5W/1/2 NS Inj 1,000 ML @ 40 960 / 960 mls/hr IV.CONT .Q24H [facility] Rx#: [id number] Venofer Inj 200 MG In NS Inj 110 / 110 100 ML @ 110 mls/hr IV.SIG ONCE ONE Rx#:[id number] Oral 720 / 720 480 / 480 Output: Urine 50 / 50 92 / 92 Urine Amount (Catheter) Indwelling Urethral Catheter Other: Date of Last Bowel Movement 05/18/18 Narrative: GENERAL: alert and oriented. NAD. SKIN: Warm and dry. NECK: Supple, trachea midline. No JVD or lymphadenopathy. CARDIOVASCULAR: Regular rate and rhythm without murmurs, gallops, or rubs. Left arm AVF RESPIRATORY: Breath sounds equal bilaterally. No accessory muscle use. GASTROINTESTINAL: Abdomen soft, non-tender. Postsurgical site left side. +BS MUSCULOSKELETAL: No cyanosis, or edema. BACK: Nontender without obvious deformity. No CVA tenderness. - Urinary Catheter Management Indwelling Urethral Catheter Cath placed during this visit: yes Urethral indwelling: Yes Reason for continuing: Decision to DC catheter Insertion date: 05/14/18 Insertion time: 21:45 <Tiffanie Azar - Last Filed: 05/19/18 09:09> Vital signs: Vital Signs 05/18/18 21:00 05/18/18 22:00 05/18/18 23:00 Temperature Pulse Rate 74 72 75 Respiratory Rate Blood Pressure Pulse Oximetry 05/19/18 00:00 05/19/18 01:00 05/19/18 02:00 Temperature 98.6 F Pulse Rate 69 71 71 Respiratory Rate 18 Blood Pressure 154/84 H Pulse Oximetry 98 05/19/18 03:00 05/19/18 04:00 05/19/18 05:00 Temperature 98.5 F Pulse Rate 65 65 70 Respiratory Rate 19 Blood Pressure 153/79 H Pulse Oximetry 98 05/19/18 06:00 05/19/18 07:00 05/19/18 08:00 Temperature 98.8 F Pulse Rate 72 78 78 Respiratory Rate Blood Pressure 163/90 H Pulse Oximetry 100 05/19/18 09:00 05/19/18 10:00 05/19/18 11:00 Temperature 98.7 F Pulse Rate 74 76 98 H Respiratory Rate Blood Pressure 166/84 H Pulse Oximetry 100 05/19/18 12:00 05/19/18 13:00 05/19/18 14:00 Temperature Pulse Rate 89 86 84 Respiratory Rate Blood Pressure Pulse Oximetry 05/19/18 15:00 05/19/18 16:00 05/19/18 16:30 Temperature 97.9 F 98.6 F Pulse Rate 95 H 90 82 Respiratory Rate 16 16 Blood Pressure 152/81 H 149/82 H Pulse Oximetry 100 100 05/19/18 16:45 05/19/18 17:00 05/19/18 17:15 Temperature 97.8 F Pulse Rate 79 90 82 Respiratory Rate 16 16 16 Blood Pressure 150/78 H 150/86 H 145/85 H Pulse Oximetry 100 100 98 05/19/18 17:30 05/19/18 18:00 05/19/18 19:00 Temperature 99 F Pulse Rate 84 91 H 80 Respiratory Rate 16 16 20 Blood Pressure 145/85 H 139/80 148/81 H Pulse Oximetry 98 98 99 05/19/18 20:00 Temperature Pulse Rate 74 Respiratory Rate 18 Blood Pressure 157/79 H Pulse Oximetry 99 Intake & Output 05/19/18 05/19/18 05/20/18 06:59 18:59 06:59 Intake Total 480 / 480 1710 / 1710 Output Total 92 / 92 1999 Balance 388 / 388 -290 / -290 Weight 114.1 kg Intake: IV 960 / 960 D5W/1/2 NS Inj 1,000 ML @ 40 960 / 960 mls/hr IV.CONT .Q24H [facility] Rx#: [id number] Oral 480 / 480 750 / 750 Output: Urine 0 / 0 Hemodialysis Amount 1999 Other: Date of Last Bowel Movement 05/19/18 # Bowel Movements 0 - Urinary Catheter Management Indwelling Urethral Catheter Cath placed during this visit: no <Severino Jones - Last Filed: 05/19/18 20:46> Assessment and Plan - Assessment (1) ESRD (end stage renal disease) on dialysis Code(s): N18.6 - End stage renal disease; Z99.2 - Dependence on renal dialysis Status: Acute - Plan Delayed graft function persists. Potassium level normal, on veltassa daily. Continue CellCept, steroids, and tacrolimus. Continue to maintain strict I+O Will monitor urinary output and renal function. Seen during hemodialysis, urinary output remains low, 3 K bath plan to remove 2.3 liters. Tacrolimus level pending today. <Tiffanie Azar - Last Filed: 05/19/18 09:09> - Assessment (1) ESRD (end stage renal disease) on dialysis Code(s): N18.6 - End stage renal disease; Z99.2 - Dependence on renal dialysis Status: Acute - Plan Patient seen and examined, agree with above. Patient still has low urine out put. BUN and Creatinine increase, given HD today. Prograf level is low, will follow in AM and if still low, to increase the dose. BP slightly elevated, started on Lopressor IV. Follow the urine out put and BMP. <Severino Jones - Last Filed: 05/19/18 20:46>
[2018-05-19] MEDS: Insulin NovoLOG Aspart Correctional Sugar Inj SQ SCH ×3 (12:11→18:01)
[2018-05-19] MEDS: Pantoprazole Inj 40 MG Vial IV.PUSH SCH (12:12)
[2018-05-19] MEDS ORDERED: Hydrocortisone Sod Succinate 100 MG Vial IV.PUSH PRN (14:03)
--- NOTE | 2018-05-19 14:39 | P.PNTS ---
Subjective Interval history: No new c/o. Pain well controlled. No N/V Physical Exam Vital signs: Vital Signs 05/18/18 15:00 05/18/18 16:00 05/18/18 17:00 Temperature Pulse Rate 79 77 79 Respiratory Rate 16 Blood Pressure 141/73 H Pulse Oximetry 97 05/18/18 18:00 05/18/18 19:00 05/18/18 20:00 Temperature 98.6 F Pulse Rate 80 72 72 Respiratory Rate 18 Blood Pressure 159/87 H Pulse Oximetry 100 05/18/18 21:00 05/18/18 22:00 05/18/18 23:00 Temperature Pulse Rate 74 72 75 Respiratory Rate Blood Pressure Pulse Oximetry 05/19/18 00:00 05/19/18 01:00 05/19/18 02:00 Temperature 98.6 F Pulse Rate 69 71 71 Respiratory Rate 18 Blood Pressure 154/84 H Pulse Oximetry 98 05/19/18 03:00 05/19/18 04:00 05/19/18 05:00 Temperature 98.5 F Pulse Rate 65 65 70 Respiratory Rate 19 Blood Pressure 153/79 H Pulse Oximetry 98 05/19/18 06:00 05/19/18 07:00 05/19/18 08:00 Temperature 98.8 F Pulse Rate 72 78 78 Respiratory Rate Blood Pressure 163/90 H Pulse Oximetry 100 05/19/18 09:00 05/19/18 10:00 05/19/18 11:00 Temperature Pulse Rate 74 76 78 Respiratory Rate Blood Pressure Pulse Oximetry 05/19/18 12:00 05/19/18 13:00 Temperature Pulse Rate 89 86 Respiratory Rate Blood Pressure Pulse Oximetry Intake & Output 05/18/18 05/19/18 05/19/18 18:59 06:59 18:59 Intake Total 830 / 830 480 / 480 960 / 960 Output Total 92 / 92 92 / 92 1999 / 1999 Balance 738 / 738 388 / 388 -1040 / -1040 Intake: IV 110 / 110 960 / 960 D5W/1/2 NS Inj 1,000 ML @ 40 960 / 960 mls/hr IV.CONT .Q24H FRANSISCA Rx#: [id number] Venofer Inj 200 MG In NS Inj 110 / 110 100 ML @ 110 mls/hr IV.SIG ONCE ONE Rx#:[id number] Oral 720 / 720 480 / 480 Output: Urine 50 / 50 92 / 92 Hemodialysis Amount 1999 Urine Amount (Catheter) Indwelling Urethral Catheter Other: Date of Last Bowel Movement 05/18/18 05/19/18 - Constitutional no acute distress - Routine HEENT Exam Head: Present: normocephalic, atraumatic Eye: Present: EOMI ENT: Present: mucous membranes moist - Routine Neck Exam Present: supple - Routine Respiratory Exam Present: CTA bilaterally - Routine Cardiovascular Exam Present: RRR, S1, S2 - Routine Abdominal Exam Present: soft, normoactive bowel sounds Comments: Wound CDI without EFT - Routine Extremities Exam Present: pulses intact - Routine Skin Exam Present: intact - Routine Neurological Exam Present: alert, oriented X3 - Routine Psychiatric Exam Present: normal affect, normal thought process - Urinary Catheter Management Indwelling Urethral Catheter Cath placed during this visit: yes Urethral indwelling: No Reason for continuing: Decision to DC catheter Insertion date: 05/14/18 Insertion time: 21:45 Results - Labs CBC & Chem 7: 05/19/18 05:44 05/19/18 05:44 Laboratory Results - last 24 hr 05/18/18 05/18/18 05/19/18 17:08 20:36 05:44 WBC 4.1 RBC 2.15 L Hgb 7.7 L Hct 22.2 L MCV 103.3 H MCH 35.7 H MCHC 34.5 RDW 13.3 Plt Count 98 L MPV 9.0 Prelim Diff (Auto) Slide review pending Neut % (Auto) 80.7 H Lymph % (Auto) 8.0 L [place] % (Auto) 11.2 H Eos % (Auto) 0.1 Baso % (Auto) 0.0 Neut # (Auto) 3.3 Lymph # (Auto) 0.3 L [place] # (Auto) 0.5 Eos # (Auto) 0.0 Baso # (Auto) 0.0 WBC Differential . Diff Scan Auto diff confirmed Differential Comment . Platelet Estimate Low L Platelet Morphology Normal Sodium Potassium Chloride Carbon Dioxide Anion Gap BUN Creatinine Estimated GFR POC Glucose 190 H 121 H Random Glucose Calcium Phosphorus Magnesium Tacrolimus 05/19/18 05/19/18 05/19/18 05:44 05:44 07:56 WBC RBC Hgb Hct MCV MCH MCHC RDW Plt Count MPV Prelim Diff (Auto) Neut % (Auto) Lymph % (Auto) [place] % (Auto) Eos % (Auto) Baso % (Auto) Neut # (Auto) Lymph # (Auto) [place] # (Auto) Eos # (Auto) Baso # (Auto) WBC Differential Diff Scan Differential Comment Platelet Estimate Platelet Morphology Sodium 138 Potassium 4.2 Chloride 99 Carbon Dioxide 25.9 Anion Gap 13 BUN 79 H Creatinine 12.33 H* D Estimated GFR 5 L POC Glucose 98 Random Glucose 98 Calcium 8.0 L Phosphorus 7.4 H D Magnesium 2.2 Tacrolimus Less than 2.0 L 05/19/18 12:04 WBC RBC Hgb Hct MCV MCH MCHC RDW Plt Count MPV Prelim Diff (Auto) Neut % (Auto) Lymph % (Auto) [place] % (Auto) Eos % (Auto) Baso % (Auto) Neut # (Auto) Lymph # (Auto) [place] # (Auto) Eos # (Auto) Baso # (Auto) WBC Differential Diff Scan Differential Comment Platelet Estimate Platelet Morphology Sodium Potassium Chloride Carbon Dioxide Anion Gap BUN Creatinine Estimated GFR POC Glucose 73 Random Glucose Calcium Phosphorus Magnesium Tacrolimus Assessment and Plan - Plan Mr Brent Askew has ESRD secondary to DM/htn, and is being admitted for kidney transplantation. S/P Right donor kidney transplant to left iliac fossa. POD#4 Allograft function: delayed.. Immunosuppression: induction; Thymo Maint: steroids + Cellcept 1000 mg BID + Prograf 2.5 mg BID Patient with better controlled pain. 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 normokalemic , No new c/o. Had HD today. Continue Veltassa 16.8 mg daily. Thymo 1 mg/kg to be given today. Diabetic/ renal diet with supplement...decreased protein in diet. OOB today. Encourage IS.
[2018-05-19] MEDS ORDERED: Acetaminophen 325 MG Tablet PO ONE (15:00)
[2018-05-19] MEDS ORDERED: MethylPREDNISolone Sod Succinate Inj 40 MG/ML Vial IV.PUSH ONE (15:00)
[2018-05-19] MEDS ORDERED: Epoetin Alfa Inj 4,000 UNIT/ML Vial SQ ONE (15:30)
[2018-05-19] MEDS ORDERED: ANTITHYMOCYTE IG IV.SIG ONE (15:30)
[2018-05-19] MEDS ORDERED: SODIUM CHLOR 0.9% IV.SIG ONE (15:30)
[2018-05-19] MEDS: Metoprolol Inj 5 MG/5 ML Vial IV.PUSH SCH ×2 (15:50→21:58)
--- NOTE | 2018-05-19 15:52 | P.PN ---
Subjective Interval history: In bed appears in nad. No fever or chills. Was up in the chair. Pain is fairly controlled by PO meds. OFF CMS EXPERT . Physical Exam Vital signs: Vital Signs 05/18/18 16:00 05/18/18 17:00 05/18/18 18:00 Temperature Pulse Rate 77 79 80 Respiratory Rate Blood Pressure Pulse Oximetry 05/18/18 19:00 05/18/18 20:00 05/18/18 21:00 Temperature 98.6 F Pulse Rate 72 72 74 Respiratory Rate 18 Blood Pressure 159/87 H Pulse Oximetry 100 05/18/18 22:00 05/18/18 23:00 05/19/18 00:00 Temperature 98.6 F Pulse Rate 72 75 69 Respiratory Rate 18 Blood Pressure 154/84 H Pulse Oximetry 98 05/19/18 01:00 05/19/18 02:00 05/19/18 03:00 Temperature 98.5 F Pulse Rate 71 71 65 Respiratory Rate 19 Blood Pressure 153/79 H Pulse Oximetry 98 05/19/18 04:00 05/19/18 05:00 05/19/18 06:00 Temperature Pulse Rate 65 70 72 Respiratory Rate Blood Pressure Pulse Oximetry 05/19/18 07:00 05/19/18 08:00 05/19/18 09:00 Temperature 98.8 F Pulse Rate 78 78 74 Respiratory Rate Blood Pressure 163/90 H Pulse Oximetry 100 05/19/18 10:00 05/19/18 11:00 05/19/18 12:00 Temperature Pulse Rate 76 78 89 Respiratory Rate Blood Pressure Pulse Oximetry 05/19/18 13:00 Temperature Pulse Rate 86 Respiratory Rate Blood Pressure Pulse Oximetry Intake & Output 05/18/18 05/19/18 05/19/18 18:59 06:59 18:59 Intake Total 830 / 830 480 / 480 960 / 960 Output Total 92 / 92 92 / 92 1999 / 1999 Balance 738 / 738 388 / 388 -1040 / -1040 Intake: IV 110 / 110 960 / 960 D5W/1/2 NS Inj 1,000 ML @ 40 960 / 960 mls/hr IV.CONT .Q24H [facility] Rx#: [id number] Venofer Inj 200 MG In NS Inj 110 / 110 100 ML @ 110 mls/hr IV.SIG ONCE ONE Rx#:[id number] Oral 720 / 720 480 / 480 Output: Urine 50 / 50 92 / 92 Hemodialysis Amount 1999 Urine Amount (Catheter) Indwelling Urethral Catheter Other: Date of Last Bowel Movement 05/18/18 05/19/18 Narrative: GENERAL: Pleasant 53 yo male, well nourished, well developed, appears in NAD. SKIN: Warm and dry. NECK: Supple, trachea midline. No JVD or lymphadenopathy. CARDIOVASCULAR: Regular rate and rhythm without murmurs, gallops, or rubs. Left arm AVF RESPIRATORY: Breath sounds equal bilaterally. No accessory muscle use. GASTROINTESTINAL: Abdomen soft, non-tender. Postsurgical site left side. +BS MUSCULOSKELETAL: No cyanosis or edema. - Urinary Catheter Management Indwelling Urethral Catheter Cath placed during this visit: yes Urethral indwelling: No Reason for continuing: Decision to DC catheter Insertion date: 05/14/18 Insertion time: 21:45 Results - Labs CBC & Chem 7: 05/19/18 05:44 05/19/18 05:44 Laboratory Results - last 24 hr 05/18/18 05/18/18 05/19/18 17:08 20:36 05:44 WBC 4.1 RBC 2.15 L Hgb 7.7 L Hct 22.2 L MCV 103.3 H MCH 35.7 H MCHC 34.5 RDW 13.3 Plt Count 98 L MPV 9.0 Prelim Diff (Auto) Slide review pending Neut % (Auto) 80.7 H Lymph % (Auto) 8.0 L [place] % (Auto) 11.2 H Eos % (Auto) 0.1 Baso % (Auto) 0.0 Neut # (Auto) 3.3 Lymph # (Auto) 0.3 L [place] # (Auto) 0.5 Eos # (Auto) 0.0 Baso # (Auto) 0.0 WBC Differential . Diff Scan Auto diff confirmed Differential Comment . Platelet Estimate Low L Platelet Morphology Normal Sodium Potassium Chloride Carbon Dioxide Anion Gap BUN Creatinine Estimated GFR POC Glucose 190 H 121 H Random Glucose Calcium Phosphorus Magnesium Tacrolimus 05/19/18 05/19/18 05/19/18 05:44 05:44 07:56 WBC RBC Hgb Hct MCV MCH MCHC RDW Plt Count MPV Prelim Diff (Auto) Neut % (Auto) Lymph % (Auto) [place] % (Auto) Eos % (Auto) Baso % (Auto) Neut # (Auto) Lymph # (Auto) [place] # (Auto) Eos # (Auto) Baso # (Auto) WBC Differential Diff Scan Differential Comment Platelet Estimate Platelet Morphology Sodium 138 Potassium 4.2 Chloride 99 Carbon Dioxide 25.9 Anion Gap 13 BUN 79 H Creatinine 12.33 H* D Estimated GFR 5 L POC Glucose 98 Random Glucose 98 Calcium 8.0 L Phosphorus 7.4 H D Magnesium 2.2 Tacrolimus Less than 2.0 L 05/19/18 12:04 WBC RBC Hgb Hct MCV MCH MCHC RDW Plt Count MPV Prelim Diff (Auto) Neut % (Auto) Lymph % (Auto) [place] % (Auto) Eos % (Auto) Baso % (Auto) Neut # (Auto) Lymph # (Auto) [place] # (Auto) Eos # (Auto) Baso # (Auto) WBC Differential Diff Scan Differential Comment Platelet Estimate Platelet Morphology Sodium Potassium Chloride Carbon Dioxide Anion Gap BUN Creatinine Estimated GFR POC Glucose 73 Random Glucose Calcium Phosphorus Magnesium Tacrolimus Assessment and Plan - Assessment (1) ESRD (end stage renal disease) on dialysis Code(s): N18.6 - End stage renal disease; Z99.2 - Dependence on renal dialysis Status: Acute - Plan 53-year-old male with a history of end-stage renal disease due to a failed kidney transplant back in 2014 currently on hemodialysis ; s/p Renal transplant-delayed graft function- monitor I/O- on Cellcept- HS as needed- management per transplant surgery and nephrology- continue with pain control. History of end-stage renal disease on current hemodialysisDrTwan White has been consulted and is following. Hyperkalemia; improved- started on Valtassa History of hypertension - clonidine as needed for any uncontrolled blood pressure. History of diabetes mellitus -monitor blood sugars with sliding scale insulin. DVT prophylaxisper transplant surgery. Discharge plan discharge when cleared by Specialists. Likely discharge on Monday Discussed with the patient, nurse Plan to DC home likely on Monday . DC when cleared by consultants.
[2018-05-19] MEDS ORDERED: Iron Sucrose Inj 200 MG in Sodium Chlor 0.9% Inj 100 ML IV.SIG ONE (16:00)
[2018-05-19] MEDS ORDERED: MethylPREDNISolone Sod Succinate Inj 125 MG/2 ML Vial ONE (16:26)
[2018-05-19] MEDS: Docusate Sodium 100 MG Capsule PO SCH ×2 (17:34→22:00)
[2018-05-19] MEDS: Nystatin Liq 500,000 UNIT/5 ML UDC SWISH-SWAL SCH ×2 (18:00→21:58)
[2018-05-20] MEDS: Insulin NovoLOG Aspart Correctional Sugar Inj SQ SCH ×4 (02:30→16:27)
[2018-05-20] MEDS: Tacrolimus 0.5 MG Capsule PO SCH ×2 (05:09→17:48)
[2018-05-20] MEDS: Metoprolol Inj 5 MG/5 ML Vial IV.PUSH SCH ×4 (05:09→21:09)
[2018-05-20 05:10] LABS: Baso % (Auto) 0.5 % (0.0-2.0); Eos % (Auto) 0.3 % (0.0-4.0); Hematocrit 22.3 % (39.0-51.0); Hemoglobin 7.7 gm/dL (13.0-17.0); Lymph % (Auto) 0.8 % (9.0-44.0); Mean Corpuscular HGB Conc 34.6 % (32.0-36.0); Mean Corpuscular Hemoglobin 35.7 pg (27.0-34.0); Mean Corpuscular Volume 103.2 fL (80.0-100.0); Mean Platelet Volume 8.6 fL (7.0-11.0); Mono # (Auto) 0.4 th/mm3 (0.0-0.9); Mono % (Auto) 10.2 % (0.0-8.0); Neut # (Auto) 3.4 th/mm3 (1.8-7.7); Neut % (Auto) 88.2 % (16.0-70.0); Platelet Count 115 th/mm3 (150-450); Red Blood Count 2.16 mil/mm3 (4.50-5.90); Red Cell Distribution Width 13.4 % (11.6-17.2); White Blood Count 3.9 th/mm3 (4.0-11.0)
[2018-05-20 05:33] LABS: Carbon Dioxide 29.5 meq/L (21.0-32.0); Magnesium 2.1 mg/dL (1.5-2.5); Phosphorus 5.9 mg/dL (2.5-4.9); Potassium 4.1 meq/L (3.5-5.1)
[2018-05-20] MEDS: Nystatin Liq 500,000 UNIT/5 ML UDC SWISH-SWAL SCH ×4 (08:40→21:09)
[2018-05-20] MEDS: Docusate Sodium 100 MG Capsule PO SCH ×2 (08:40→21:09)
[2018-05-20] MEDS: Pantoprazole Inj 40 MG Vial IV.PUSH SCH (08:40)
--- NOTE | 2018-05-20 11:12 | P.PNTS ---
Subjective Interval history: Feels like he has some fluid in his ankles adn abd, but otherwise feels okay. Pain well controlled Physical Exam Vital signs: Vital Signs 05/19/18 12:00 05/19/18 13:00 05/19/18 14:00 Temperature Pulse Rate 89 86 84 Respiratory Rate Blood Pressure Pulse Oximetry 05/19/18 15:00 05/19/18 16:00 05/19/18 16:30 Temperature 97.9 F 98.6 F Pulse Rate 95 H 90 82 Respiratory Rate 16 16 Blood Pressure 152/81 H 149/82 H Pulse Oximetry 100 100 05/19/18 16:45 05/19/18 17:00 05/19/18 17:15 Temperature 97.8 F Pulse Rate 79 90 82 Respiratory Rate 16 16 16 Blood Pressure 150/78 H 150/86 H 145/85 H Pulse Oximetry 100 100 98 05/19/18 17:30 05/19/18 18:00 05/19/18 19:00 Temperature 99 F Pulse Rate 84 91 H 95 H Respiratory Rate 16 16 20 Blood Pressure 145/85 H 139/80 148/81 H Pulse Oximetry 98 98 99 05/19/18 20:00 05/19/18 21:00 05/19/18 22:00 Temperature Pulse Rate 84 72 74 Respiratory Rate 18 16 Blood Pressure 157/79 H 158/80 H Pulse Oximetry 99 05/19/18 23:00 05/20/18 00:00 05/20/18 01:00 Temperature 97.4 F L Pulse Rate 75 70 74 Respiratory Rate 18 Blood Pressure 147/78 H Pulse Oximetry 98 05/20/18 02:00 05/20/18 03:00 05/20/18 04:00 Temperature 97.9 F Pulse Rate 66 65 70 Respiratory Rate 16 Blood Pressure 147/76 H Pulse Oximetry 99 05/20/18 05:00 05/20/18 06:00 05/20/18 07:45 Temperature Pulse Rate 66 66 76 Respiratory Rate Blood Pressure Pulse Oximetry 05/20/18 07:48 05/20/18 08:00 05/20/18 09:24 Temperature 99.3 F Pulse Rate 76 83 81 Respiratory Rate 18 Blood Pressure 147/76 H Pulse Oximetry 99 05/20/18 10:33 Temperature Pulse Rate 72 Respiratory Rate Blood Pressure Pulse Oximetry Intake & Output 05/19/18 05/20/1805/20/18 18:59 06:59 18:59 Intake Total 1710 / 1710 500 / 500 Output Total 1999 50 / 50 Balance -290 / -290 -50 / -50 500 / 500 Intake: IV 960 / 960 500 / 500 D5W/1/2 NS Inj 1,000 ML @ 40 960 / 960 mls/hr IV.CONT .Q24H [facility]ANSISCA Rx#: [id number] Oral 750 / 750 Output: Urine 0 / 0 50 / 50 Hemodialysis Amount 1999 Other: # Voids 1 Date of Last Bowel Movement 05/19/18 05/19/18 05/19/18 # Bowel Movements 0 - Constitutional no acute distress - Routine HEENT Exam Head: Present: normocephalic, atraumatic Eye: Present: EOMI ENT: Present: mucous membranes moist - Routine Neck Exam Present: supple - Routine Respiratory Exam Present: CTA bilaterally - Routine Cardiovascular Exam Present: RRR, S1, S2 - Routine Abdominal Exam Present: soft, normoactive bowel sounds Comments: Wound CDI without EFT - Routine Extremities Exam Present: pulses intact Comments: No peripheral edema noted - Routine Skin Exam Present: intact - Routine Neurological Exam Present: alert, oriented X3 - Detailed Neurological Exam: Coma Scale Verbal Response: Oriented - Routine Psychiatric Exam Present: normal affect, normal thought process - Urinary Catheter Management Indwelling Urethral Catheter Cath placed during this visit: yes Urethral indwelling: No Reason for continuing: Decision to DC catheter Insertion date: 05/14/18 Insertion time: 21:45 Results - Labs CBC & Chem 7: 05/20/18 04:40 05/20/18 04:40 Laboratory Results - last 24 hr 05/19/18 05/19/18 05/19/18 05:44 12:04 16:36 WBC RBC Hgb Hct MCV MCH MCHC RDW Plt Count MPV Neut % (Auto) Lymph % (Auto) [place] % (Auto) Eos % (Auto) Baso % (Auto) Neut # (Auto) Lymph # (Auto) [place] # (Auto) Eos # (Auto) Baso # (Auto) WBC Differential Differential Comment Sodium Potassium Chloride Carbon Dioxide Anion Gap BUN Creatinine Estimated GFR POC Glucose 73 111 H Random Glucose Calcium Phosphorus Magnesium Tacrolimus Less than 2.0 L 12/15/18 12/16/18 12/16/18 22:10 04:40 04:40 WBC 3.9 L RBC 2.16 L Hgb 7.7 L Hct 22.3 L MCV 103.2 H MCH 35.7 H MCHC 34.6 RDW 13.4 Plt Count 115 L MPV 8.6 Neut % (Auto) 88.2 H Lymph % (Auto) 0.8 L [place] % (Auto) 10.2 H Eos % (Auto) 0.3 Baso % (Auto) 0.5 Neut # (Auto) 3.4 Lymph # (Auto) 0.0 L [place] # (Auto) 0.4 Eos # (Auto) 0.0 Baso # (Auto) 0.0 WBC Differential . Differential Comment Auto diff final Sodium 138 Potassium 4.1 Chloride 100 Carbon Dioxide 29.5 Anion Gap 9 BUN 58 H Creatinine 9.89 H Estimated GFR 7 L POC Glucose 109 Random Glucose 96 Calcium 8.0 L Phosphorus 5.9 H D Magnesium 2.1 Tacrolimus 18 08:50 WBC RBC Hgb Hct MCV MCH MCHC RDW Plt Count MPV Neut % (Auto) Lymph % (Auto) [place] % (Auto) Eos % (Auto) Baso % (Auto) Neut # (Auto) Lymph # (Auto) [place] # (Auto) Eos # (Auto) Baso # (Auto) WBC Differential Differential Comment Sodium Potassium Chloride Carbon Dioxide Anion Gap BUN Creatinine Estimated GFR POC Glucose 135 H Random Glucose Calcium Phosphorus Magnesium Tacrolimus Assessment and Plan - Plan Mr Brent Askew has ESRD secondary to DM/htn, and is being admitted for kidney transplantation. S/P Right donor kidney transplant to left iliac fossa. POD#4 Allograft function: delayed.. Immunosuppression: induction; Thymo Maint: steroids + Cellcept 1000 mg BID + Prograf 2.5 mg BID Patient with controlled pain. normokalemic, No overt evidence of fluid overload. Continue Veltassa 16.8 mg daily. Renal diet with supplement..Will give 100 mg lasix. Start prednisone 20 mg qd. OOB today. Encourage IS.
--- NOTE | 2018-05-20 11:22 | P.PNNP ---
Subjective Interval history: Patient is alert, sitting on the chair, now SOB, on room air, passing small amount of urine. Physical Exam Vital signs: Vital Signs 05/19/18 12:00 05/19/18 13:00 05/19/18 14:00 Temperature Pulse Rate 89 86 84 Respiratory Rate Blood Pressure Pulse Oximetry 05/19/18 15:00 05/19/18 16:00 05/19/18 16:30 Temperature 97.9 F 98.6 F Pulse Rate 95 H 90 82 Respiratory Rate 16 16 Blood Pressure 152/81 H 149/82 H Pulse Oximetry 100 100 05/19/18 16:45 05/19/18 17:00 05/19/18 17:15 Temperature 97.8 F Pulse Rate 79 90 82 Respiratory Rate 16 16 16 Blood Pressure 150/78 H 150/86 H 145/85 H Pulse Oximetry 100 100 98 05/19/18 17:30 05/19/18 18:00 05/19/18 19:00 Temperature 99 F Pulse Rate 84 91 H 95 H Respiratory Rate 16 16 20 Blood Pressure 145/85 H 139/80 148/81 H Pulse Oximetry 98 98 99 05/19/18 20:00 05/19/18 21:00 05/19/18 22:00 Temperature Pulse Rate 84 72 74 Respiratory Rate 18 16 Blood Pressure 157/79 H 158/80 H Pulse Oximetry 99 05/19/18 23:00 05/20/18 00:00 05/20/18 01:00 Temperature 97.4 F L Pulse Rate 75 70 74 Respiratory Rate 18 Blood Pressure 147/78 H Pulse Oximetry 98 05/20/18 02:00 05/20/18 03:00 05/20/18 04:00 Temperature 97.9 F Pulse Rate 66 65 70 Respiratory Rate 16 Blood Pressure 147/76 H Pulse Oximetry 99 05/20/18 05:00 05/20/18 06:00 05/20/18 07:45 Temperature Pulse Rate 66 66 76 Respiratory Rate Blood Pressure Pulse Oximetry 05/20/18 07:48 05/20/18 08:00 05/20/18 09:24 Temperature 99.3 F Pulse Rate 76 83 81 Respiratory Rate 18 Blood Pressure 147/76 H Pulse Oximetry 99 05/20/18 10:33 Temperature Pulse Rate 72 Respiratory Rate Blood Pressure Pulse Oximetry Intake & Output 05/19/18 05/20/18 05/20/18 18:59 06:59 18:59 Intake Total 1710 / 1710 500 / 500 Output Total 1999 50 / 50 Balance -290 / -290 -50 / -50 500 / 500 Intake: IV 960 / 960 500 / 500 D5W/1/2 NS Inj 1,000 ML @ 40 960 / 960 mls/hr IV.CONT .Q24H FRANSISCA Rx#: [id number] Oral 750 / 750 Output: Urine 0 / 0 50 / 50 Hemodialysis Amount 1999 Other: # Voids 1 Date of Last Bowel Movement 05/19/18 05/19/18 05/19/18 # Bowel Movements 0 Narrative: GENERAL: Pleasant 53 yo male, well nourished, well developed, appears in NAD. SKIN: Warm and dry. NECK: Supple, trachea midline. No JVD or lymphadenopathy. CARDIOVASCULAR: Regular rate and rhythm without murmurs, gallops, or rubs. Left arm AVF RESPIRATORY: Breath sounds equal bilaterally. No accessory muscle use. GASTROINTESTINAL: Abdomen soft, non-tender. Postsurgical site left side. +BS MUSCULOSKELETAL: No cyanosis or edema. - Urinary Catheter Management Indwelling Urethral Catheter Cath placed during this visit: yes Urethral indwelling: No Reason for continuing: Decision to DC catheter Insertion date: 05/14/18 Insertion time: 21:45 Assessment and Plan - Assessment (1) ESRD (end stage renal disease) on dialysis Code(s): N18.6 - End stage renal disease; Z99.2 - Dependence on renal dialysis Status: Acute - Plan Patient with end stage renal disease, on HD, Now has [facility] Renal transplant. Patient still has low urine out put. BUN and Creatinine increase, has HD yesterday. Prograf level was low yesterday, will follow today's level. BP slightly elevated, started on on PO Metoprolol. Also to start Lasix, Follow the urine out put and BMP. Possible D/C in 1-[address] White will follow from AM.
[2018-05-20 11:25] VITALS: O2SAT 100
[2018-05-20] MEDS: predniSONE 20 MG Tablet PO SCH (11:49)
[2018-05-20] MEDS: Metoprolol Tartrate 25 MG Tablet PO SCH ×2 (11:59→21:09)
--- NOTE | 2018-05-20 13:43 | P.PN ---
Subjective Interval history: The patient is seen chair he appears not in acute distress at this time. Says he was ambulating today without any problems. Says urine is still bloody especially after Hoffman was removed. Denies any pain at the surgical site. No fever chills overnight. No chest pain or shortness of breath. Family at bedside very supportive. Plan for discharge tomorrow. Physical Exam Vital signs: Vital Signs 05/19/18 14:00 05/19/18 15:00 05/19/18 16:00 Temperature 97.9 F Pulse Rate 84 95 H 90 Respiratory Rate 16 Blood Pressure 152/81 H Pulse Oximetry 100 05/19/18 16:30 05/19/18 16:45 05/19/18 17:00 Temperature 98.6 F 97.8 F Pulse Rate 82 79 90 Respiratory Rate 16 16 16 Blood Pressure 149/82 H 150/78 H 150/86 H Pulse Oximetry 100 100 100 05/19/18 17:15 05/19/18 17:30 05/19/18 18:00 Temperature Pulse Rate 82 84 91 H Respiratory Rate 16 16 16 Blood Pressure 145/85 H 145/85 H 139/80 Pulse Oximetry 98 98 98 05/19/18 19:00 05/19/18 20:00 05/19/18 21:00 Temperature 99 F Pulse Rate 95 H 84 72 Respiratory Rate 20 18 16 Blood Pressure 148/81 H 157/79 H 158/80 H Pulse Oximetry 99 99 05/19/18 22:00 05/19/18 23:00 05/20/18 00:00 Temperature 97.4 F L Pulse Rate 74 75 70 Respiratory Rate 18 Blood Pressure 147/78 H Pulse Oximetry 98 05/20/18 01:00 05/20/18 02:00 05/20/18 03:00 Temperature 97.9 F Pulse Rate 74 66 65 Respiratory Rate 16 Blood Pressure 147/76 H Pulse Oximetry 99 05/20/18 04:00 05/20/18 05:00 05/20/18 06:00 Temperature Pulse Rate 70 66 66 Respiratory Rate Blood Pressure Pulse Oximetry 05/20/18 07:45 05/20/18 07:48 05/20/18 08:00 Temperature 99.3 F Pulse Rate 76 76 83 Respiratory Rate 18 Blood Pressure 147/76 H Pulse Oximetry 99 05/20/18 09:24 05/20/18 10:33 05/20/18 11:23 Temperature Pulse Rate 81 72 73 Respiratory Rate Blood Pressure Pulse Oximetry 05/20/18 11:24 05/20/18 12:12 05/20/18 13:03 Temperature 97.6 F Pulse Rate 72 75 78 Respiratory Rate 18 Blood Pressure 143/76 H Pulse Oximetry 100 Intake & Output 05/19/18 05/20/18 05/20/18 18:59 06:59 18:59 Intake Total 1710 / 1710 500 / 500 Output Total 1999 50 / 50 Balance -290 / -290 -50 / -50 500 / 500 Intake: IV 960 / 960 500 / 500 D5W/1/2 NS Inj 1,000 ML @ 40 960 / 960 mls/hr IV.CONT .Q24H FRANSISCA Rx#: [id number] Oral 750 / 750 Output: Urine 0 / 0 50 / 50 Hemodialysis Amount 1999 Other: # Voids 1 Date of Last Bowel Movement 05/19/18 05/19/18 05/19/18 # Bowel Movements 0 Narrative: GENERAL: Pleasant 53 yo male, well nourished, well developed, appears in NAD. SKIN: Warm and dry. NECK: Supple, trachea midline. No JVD or lymphadenopathy. CARDIOVASCULAR: Regular rate and rhythm without murmurs, gallops, or rubs. Left arm AVF RESPIRATORY: Breath sounds equal bilaterally. No accessory muscle use. GASTROINTESTINAL: Abdomen soft, non-tender. Postsurgical site left side. +BS MUSCULOSKELETAL: No cyanosis or edema. - Urinary Catheter Management Indwelling Urethral Catheter Cath placed during this visit: yes Urethral indwelling: No Reason for continuing: Decision to DC catheter Insertion date: 05/14/18 Insertion time: 21:45 Results - Labs CBC & Chem 7: 05/20/18 04:40 05/20/18 04:40 Laboratory Results - last 24 hr 05/19/18 05/19/18 05/20/18 16:36 22:10 04:40 WBC 3.9 L RBC 2.16 L Hgb 7.7 L Hct 22.3 L MCV 103.2 H MCH 35.7 H MCHC 34.6 RDW 13.4 Plt Count 115 L MPV 8.6 Neut % (Auto) 88.2 H Lymph % (Auto) 0.8 L [place] % (Auto) 10.2 H Eos % (Auto) 0.3 Baso % (Auto) 0.5 Neut # (Auto) 3.4 Lymph # (Auto) 0.0 L [place] # (Auto) 0.4 Eos # (Auto) 0.0 Baso # (Auto) 0.0 WBC Differential . Differential Comment Auto diff final Sodium Potassium Chloride Carbon Dioxide Anion Gap BUN Creatinine Estimated GFR POC Glucose 111 H 109 Random Glucose Calcium Phosphorus Magnesium 05/20/18 05/20/18 05/20/18 04:40 08:50 11:38 WBC RBC Hgb Hct MCV MCH MCHC RDW Plt Count MPV Neut % (Auto) Lymph % (Auto) [place] % (Auto) Eos % (Auto) Baso % (Auto) Neut # (Auto) Lymph # (Auto) [place] # (Auto) Eos # (Auto) Baso # (Auto) WBC Differential Differential Comment Sodium 138 Potassium 4.1 Chloride 100 Carbon Dioxide 29.5 Anion Gap 9 BUN 58 H Creatinine 9.89 H Estimated GFR 7 L POC Glucose 135 H 119 H Random Glucose 96 Calcium 8.0 L Phosphorus 5.9 H D Magnesium 2.1 Assessment and Plan - Assessment (1) ESRD (end stage renal disease) on dialysis Code(s): N18.6 - End stage renal disease; Z99.2 - Dependence on renal dialysis Status: Acute - Plan 53-year-old male with a history of end-stage renal disease due to a failed kidney transplant back in 2014 currently on hemodialysis ; s/p Renal transplant-delayed graft function- monitor I/O- on Cellcept- HS as needed- management per transplant surgery and nephrology- continue with pain control. History of end-stage renal disease on current hemodialysisDr. White has been consulted and is following. Hyperkalemia; improved- started on Valtassa History of hypertension - clonidine as needed for any uncontrolled blood pressure. Add schedule metoprolol increased to 25 mg po bid. DVT prophylaxisper transplant surgery. Discharge plan discharge when cleared by Specialists. Likely discharge on Monday Discussed with the patient, family at bedside, nurse, Dr Redman transplant surgeon Plan to DC home likely on Monday . DC when cleared by consultants.
[2018-05-21] MEDS: Metoprolol Inj 5 MG/5 ML Vial IV.PUSH SCH ×3 (03:30→16:25)
[2018-05-21 04:57] LABS: Baso % (Auto) 0.1 % (0.0-2.0); Eos % (Auto) 0.7 % (0.0-4.0); Lymph # (Auto) 0.1 th/mm3 (1.0-4.8); Lymph % (Auto) 1.8 % (9.0-44.0); Mean Corpuscular HGB Conc 35.7 % (32.0-36.0); Mean Corpuscular Hemoglobin 36.2 pg (27.0-34.0); Mean Corpuscular Volume 101.6 fL (80.0-100.0); Mean Platelet Volume 9.1 fL (7.0-11.0); Mono # (Auto) 0.5 th/mm3 (0.0-0.9); Mono % (Auto) 11.2 % (0.0-8.0); Neut # (Auto) 3.9 th/mm3 (1.8-7.7); Neut % (Auto) 86.2 % (16.0-70.0); Platelet Count 106 th/mm3 (150-450); Red Blood Count 1.93 mil/mm3 (4.50-5.90); Red Cell Distribution Width 13.1 % (11.6-17.2); White Blood Count 4.5 th/mm3 (4.0-11.0)
[2018-05-21 05:00] LABS: Hematocrit 19.6 % (39.0-51.0)
[2018-05-21 05:30] LABS: Calcium 7.7 mg/dL (8.5-10.1); Carbon Dioxide 28.9 meq/L (21.0-32.0); Magnesium 2.2 mg/dL (1.5-2.5); Phosphorus 7.1 mg/dL (2.5-4.9)
[2018-05-21] MEDS: Tacrolimus 0.5 MG Capsule PO SCH (06:16)
--- NOTE | 2018-05-21 08:20 | P.DS ---
Date of admission: 05/14/18 16:34 Primary care physician: UNKNOWN Brief History from admission: 53-year-old male with a history of end-stage renal disease on hemodialysis due to a failed transplant 2 years ago when he had a massive GI bleed requiring total colectomy and started hemodialysis on July 14, 2014 presents to the hospital for renal transplant with Dr. Redman. Of note, patient had a previous kidney transplant on January of 1998 which failed after the massive GI bleed. He reports no complaint chest pain or shortness of breath. He does not have too much urine output and denies any symptoms of dysuria or frequency or urgency. Denies any chills or fever. He is looking forward to this transplant. DS: Diagnosis - Discharge Diagnosis (1) ESRD (end stage renal disease) on dialysis Status: Acute (2) S/p cadaver renal transplant Status: Acute DS: Medications - Discharge Medications Prescriptions: hydralazine 10 mg PO TID #120 tab metoprolol tartrate 25 mg PO BID #60 tab mycophenolate mofetil [CellCept] 1,000 mg PO BID@0600,1800 #60 tab nitroglycerin [Nitrostat] 0.4 mg SUBLINGUAL Q5M PRN #30 tab PRN Reason: Chest Pain nystatin 5 ml SWISH-SWAL QID 7 Days #140 ml oxycodone-acetaminophen 1 tab PO Q6H PRN #30 tab PRN Reason: Abdominal Pain patiromer calcium sorbitex [Veltassa] 16.8 gm PO DAILY #30 ea prednisone 20 mg PO DAILY #30 tab sulfamethoxazole-trimethoprim 1 tab PO MoWeFr #120 tab tacrolimus [Prograf] 2 mg PO BID@0600,1800 #60 cap tacrolimus [Prograf] 0.5 mg PO BID@0600,1800 #60 cap tamsulosin 0.4 mg PO HS #30 cap valganciclovir [Valcyte] 450 mg PO WeSa@0900 30 Days tab DS: Summary Hospital Course: 53-year-old male with a history of end-stage renal disease due to a failed kidney transplant back in 2014 currently on hemodialysis ; s/p Renal transplant-delayed graft function- monitor I/O- on Cellcept- HS as needed- management per transplant surgery and nephrology- continue with pain control. HD per nephro , meds per Dr Redman discussed at length discharge plan with consultants and the patient. History of end-stage renal disease on current hemodialysisDr. White has been consulted and is following. Hyperkalemia; improved- started on Valtassa History of hypertension - clonidine as needed for any uncontrolled blood pressure. Add schedule metoprolol increased to 25 mg po bid. DVT prophylaxisper transplant surgery. Discharge plan discharge when cleared by Specialists. Likely discharge on Monday Discussed with the patient, family at bedside, nurse, Dr Redman transplant surgeon - Time Spent with Patient Total time spent providing and/or coordinating discharge services: Greater than 30 minutes Exam Vital signs: Vital Signs 05/20/18 09:24 05/20/18 10:33 05/20/18 11:23 Temperature Pulse Rate 81 72 73 Respiratory Rate Blood Pressure Pulse Oximetry 05/20/18 11:24 05/20/18 12:12 05/20/18 13:03 Temperature 97.6 F Pulse Rate 72 75 78 Respiratory Rate 18 Blood Pressure 143/76 H Pulse Oximetry 100 05/20/18 14:19 05/20/18 15:05 05/20/18 15:07 Temperature 98.9 F Pulse Rate 66 71 71 Respiratory Rate 18 Blood Pressure 143/76 H Pulse Oximetry 100 05/20/18 15:49 05/20/18 16:56 05/20/18 17:54 Temperature Pulse Rate 67 68 70 Respiratory Rate Blood Pressure Pulse Oximetry 05/20/18 19:00 05/20/18 20:00 05/20/18 21:00 Temperature 98 F Pulse Rate 75 70 72 Respiratory Rate 20 Blood Pressure 163/84 H Pulse Oximetry 100 05/20/18 22:00 05/20/18 23:00 05/21/18 00:00 Temperature 97.3 F L Pulse Rate 72 70 66 Respiratory Rate 18 Blood Pressure 145/83 H Pulse Oximetry 100 05/21/18 01:00 05/21/18 02:00 05/21/18 03:00 Temperature 97.3 F L Pulse Rate 64 62 65 Respiratory Rate 18 Blood Pressure 145/83 H Pulse Oximetry 100 05/21/18 04:00 05/21/18 05:00 05/21/18 06:00 Temperature Pulse Rate 70 68 64 Respiratory Rate Blood Pressure Pulse Oximetry 05/21/18 07:32 Temperature Pulse Rate 67 Respiratory Rate Blood Pressure Pulse Oximetry Intake & Output 05/20/18 05/21/18 05/21/18 18:59 06:59 18:59 Intake Total 1100 / 1100 480 / 480 Output Total 100 / 100 190 / 190 Balance 1000 / 1000 290 / 290 Weight 115.5 kg Intake: IV 500 / 500 Oral 600 / 600 480 / 480 Output: Urine 100 / 100 190 / 190 Stool 0 / 0 Other: # Voids 2 Date of Last Bowel Movement 05/19/18 05/19/18 Narrative: GENERAL: Pleasant 53 yo male, well nourished, well developed, appears in NAD. SKIN: Warm and dry. NECK: Supple, trachea midline. No JVD or lymphadenopathy. CARDIOVASCULAR: Regular rate and rhythm without murmurs, gallops, or rubs. Left arm AVF RESPIRATORY: Breath sounds equal bilaterally. No accessory muscle use. GASTROINTESTINAL: Abdomen soft, non-tender. Postsurgical site left side. +BS MUSCULOSKELETAL: No cyanosis or edema. Results Procedures completed during hospitalization: s/p donor kidney and 6 Fr ureteral stent by Dr Redman transplant surgeon on 05/14/18 Labs on day of discharge: Labs from last 24 hours 05/21/18 05/21/18 05/21/18 04:30 04:30 04:30 WBC 4.5 RBC 1.93 L Hgb 7.0 L Hct 19.6 L* MCV 101.6 H MCH 36.2 H MCHC 35.7 RDW 13.1 Plt Count 106 L MPV 9.1 Prelim Diff (Auto) Slide review pending Neut % (Auto) 86.2 H Lymph % (Auto) 1.8 L [place] % (Auto) 11.2 H Eos % (Auto) 0.7 Baso % (Auto) 0.1 Neut # (Auto) 3.9 Lymph # (Auto) 0.1 L [place] # (Auto) 0.5 Eos # (Auto) 0.0 Baso # (Auto) 0.0 WBC Differential Pending Differential Comment . Sodium 140 Potassium 4.0 Chloride 101 Carbon Dioxide 28.9 Anion Gap 10 BUN 81 H Creatinine 12.23 H* D Estimated GFR 5 L POC Glucose Random Glucose 86 Calcium 7.7 L Phosphorus 7.1 H D Magnesium 2.2 Tacrolimus Pending 05/20/18 05/20/18 05/20/18 11:38 08:50 04:40 WBC RBC Hgb Hct MCV MCH MCHC RDW Plt Count MPV Prelim Diff (Auto) Neut % (Auto) Lymph % (Auto) [place] % (Auto) Eos % (Auto) Baso % (Auto) Neut # (Auto) Lymph # (Auto) [place] # (Auto) Eos # (Auto) Baso # (Auto) WBC Differential Differential Comment Sodium Potassium Chloride Carbon Dioxide Anion Gap BUN Creatinine Estimated GFR POC Glucose 119 H 135 H Random Glucose Calcium Phosphorus Magnesium Tacrolimus Less than 2.0 L - Impressions ITS Impressions Renal Ultrasound 05/15/18 08:43 CONCLUSION: 1. Small peritransplant fluid collection. 2. Normal sonographic appearance of the transplant with good cortical medullary distinction and no evidence of hydronephrosis. 3. Normal Doppler evaluation with peak systolic velocities in the renal transplant and adjacent iliac artery within normal limits. Chest X-Ray 05/17/18 00:00 CONCLUSION: Mild basilar atelectasis. No evidence of significant congestion Stable central venous catheters. Discharge Plan - Discharge Disposition Patient Disposition: Discharge Home - Discharge Condition Condition: Stable - Discharge Order Discharge Orders: Discharge Order (Routine); Ordered 05/21/18 Ordered By: Juliet Lowery - Discharge Details Anticipated Discharge Date: 05/21/18 - Physicians Team Primary Care Provider: UNKNOWN, Attending Provider: Juliet Lowery Other Providers: James White MD - Rxs /Orders / Referrals /Forms Prescriptions: New calcium carbonate 200 mg calcium (500 mg) Tablet,Chewable 500 mg CHEW BID@09,16 RF: 0 cinacalcet [Sensipar] 30 mg Tablet 60 mg PO DAILY Qty: 60 RF: 7 hydralazine 10 mg Tablet 10 mg PO TID Qty: 120 RF: 6 iron ag,[id number] [Niferex (Sumalate-Quatrefolic)] 150 mg iron- 60 mg-1 mg Tablet 1 tab PO DAILY Qty: 30 RF: 6 metoprolol tartrate 25 mg Tablet 25 mg PO BID Qty: 60 RF: 0 mycophenolate mofetil [CellCept] 500 mg Tablet 1,000 mg PO BID@0600,1800 Qty: 60 RF: 0 nitroglycerin [Nitrostat] 0.4 mg Tablet, Sublingual 0.4 mg Sublingual Q5M PRN (Reason: Chest Pain) Qty: 30 RF: 0 nystatin 100,000 unit/mL Suspension 5 ml SWISH-SWAL QID 7 Days Qty: 140 RF: 0 oxycodone-acetaminophen 5-325 mg Tablet 1 tab PO Q6H PRN (Reason: Abdominal Pain) Qty: 30 RF: 0 pantoprazole [Protonix] 20 mg Tablet,Delayed Release (Dr/Ec) 40 mg PO DAILY Qty: 120 RF: 6 patiromer calcium sorbitex [Veltassa] 16.8 gram Powder In Packet 16.8 gm PO DAILY Qty: 30 RF: 2 prednisone 20 mg Tablet 20 mg PO DAILY Qty: 30 RF: 0 sulfamethoxazole-trimethoprim 800-160 mg Tablet 1 tab PO MoWeFr Qty: 120 RF: 3 tacrolimus [Prograf] 1 mg Capsule 2 mg PO BID@0600,1800 Qty: 60 RF: 0 tacrolimus [Prograf] 1 mg Capsule 4 mg PO BID@0600,1800 RF: 0 tacrolimus [Prograf] 0.5 mg Capsule 0.5 mg PO BID@0600,1800 Qty: 60 RF: 0 tamsulosin 0.4 mg Capsule 0.4 mg PO HS Qty: 30 RF: 0 valganciclovir [Valcyte] 450 mg Tablet 450 mg PO WeSa@0900 30 Days RF: 0 Continue aspirin [Aspirin Low Dose] 81 mg Tablet,Delayed Release (Dr/Ec) 81 mg PO DAILY colchicine [Colcrys] 0.6 mg Tablet 0.6 mg PO DAILY PRN (Reason: Pain) lanthanum [Fosrenol] 1,000 mg Tablet,Chewable 2,000 mg PO TID sevelamer carbonate [Renvela] 800 mg Tablet 3,200 mg PO Q8HR Discontinued famotidine [Pepcid] 20 mg Tablet 20 mg PO BID Referrals: James White MD [Physician] - See Instructions ( Please call the physician's office to book the appointment to be seen within [1 week ].) UNKNOWN, [Primary Care Provider] - See Instructions ( Please call the physician's office to book the appointment to be seen within [2-3 days].) Timmy Redman MD [Physician] - See Instructions ( Please call the physician's office to book the appointment to be seen within [1-2 weeks ].) - Discharge Instructions Patient Printed Instructions: Kidney Transplant (DC)
[2018-05-21 08:23] LABS: Eosinophils 1 % (0-4); Lymphocytes 7 % (9-44); Monocytes 5 % (0-8); Myelocytes 1 % (0-0); Promyelocyte 1 % (0-0)
[2018-05-21 08:24] LABS: Platelet Morphology Normal (Normal)
[2018-05-21 08:42] VITALS: RESP 16
[2018-05-21] MEDS: Metoprolol Tartrate 25 MG Tablet PO SCH (10:20)
[2018-05-21] MEDS: Nystatin Liq 500,000 UNIT/5 ML UDC SWISH-SWAL SCH ×3 (10:21→18:31)
[2018-05-21] MEDS: predniSONE 20 MG Tablet PO SCH (10:21)
[2018-05-21] MEDS: Pantoprazole Inj 40 MG Vial IV.PUSH SCH (10:21)
[2018-05-21] MEDS: Docusate Sodium 100 MG Capsule PO SCH (10:26)
[2018-05-21 10:42] LABS: Hematocrit 21.3 % (39.0-51.0); Hemoglobin 7.3 gm/dL (13.0-17.0)
[2018-05-21] MEDS ORDERED: Iron Sucrose Inj 200 MG in Sodium Chlor 0.9% Inj 100 ML IV.SIG ONE (11:00)
--- NOTE | 2018-05-21 11:07 | P.DIET ---
Nutritional Evaluation Type of nutrition evaluation: follow-up Screening comments: Discharge summary Subjective Subjective Comments: Patient states he is not eating much but is drinking his Nepro supplements. Objective - Diagnosis ESRD - Objective [place] body weight: 81 kg (Used HT from Eval 12/28/17) % IBW: 136 Body Weight Used for Calculations: IBW Energy Needs - Lower Range (kCal/kg): 28 Energy Needs - Upper Range (kCal/kg): 33 Lower Limit kCal/kg (kCals): 2,268 Upper Limit kCal/kg (kCals): 2,673 Lower Limit Protein Factor (Grams per Kg): 0.8 Upper Limit Protein Factor (Grams per Kg): 1 Lower Protein Needs (Protein): 64 Upper Protein Needs (Protein): 81 Dietitian Reviewed in Medical Record: Current diet, Curent medications, Intake & Output, Labs Diet Order: 60gm protein, 2gm Na, 60meq K+ Objective Comments: Labs of note: K+ 4.0, Cr 12.23, Phosphorus 7.1 UOP: 290mls/24hrs, Assessment Assessment: Patient seen today for discharge planning. His kidney function remains poor however, he did put out more urine in the past 24 hrs. Pt will be going home on his current diet, reviewed guidelines and answered questions. Pt and both verbalize diet restrictions well. Will follow patient in the outpatient clinic. Pt to be discharged today.
--- NOTE | 2018-05-21 11:10 | P.PNNP ---
Subjective Interval history: patient has DGF Physical Exam Vital signs: Vital Signs 05/20/18 11:23 05/20/18 11:24 05/20/18 12:12 Temperature 97.6 F Pulse Rate 73 72 75 Respiratory Rate 18 Blood Pressure 143/76 H Pulse Oximetry 100 05/20/18 13:03 05/20/18 14:19 05/20/18 15:05 Temperature Pulse Rate 78 66 71 Respiratory Rate Blood Pressure Pulse Oximetry 05/20/18 15:07 05/20/18 15:49 05/20/18 16:56 Temperature 98.9 F Pulse Rate 71 67 68 Respiratory Rate 18 Blood Pressure 143/76 H Pulse Oximetry 100 05/20/18 17:54 05/20/18 19:00 05/20/18 20:00 Temperature 98 F Pulse Rate 70 75 70 Respiratory Rate 20 Blood Pressure 163/84 H Pulse Oximetry 100 05/20/18 21:00 05/20/18 22:00 05/20/18 23:00 Temperature 97.3 F L Pulse Rate 72 72 70 Respiratory Rate 18 Blood Pressure 145/83 H Pulse Oximetry 100 05/21/18 00:00 05/21/18 01:00 05/21/18 02:00 Temperature Pulse Rate 66 64 62 Respiratory Rate Blood Pressure Pulse Oximetry 05/21/18 03:00 05/21/18 04:00 05/21/18 05:00 Temperature 97.3 F L Pulse Rate 65 70 68 Respiratory Rate 18 Blood Pressure 145/83 H Pulse Oximetry 100 05/21/18 06:00 05/21/18 07:32 05/21/18 08:41 Temperature 98.3 F Pulse Rate 64 67 74 Respiratory Rate 16 Blood Pressure 156/72 H Pulse Oximetry 05/21/18 09:42 05/21/18 10:00 Temperature Pulse Rate 70 70 Respiratory Rate Blood Pressure Pulse Oximetry Intake & Output 05/20/18 05/21/18 05/21/18 18:59 06:59 18:59 Intake Total 1100 / 1100 480 / 480 Output Total 100 / 100 190 / 190 Balance 1000 / 1000 290 / 290 Weight 115.5 kg Intake: IV 500 / 500 Oral 600 / 600 480 / 480 Output: Urine 100 / 100 190 / 190 Stool 0 / 0 Other: # Voids 2 Date of Last Bowel Movement 05/19/18 05/19/18 Narrative: GENERAL: Pleasant 53 yo male, well nourished, well developed, appears in NAD. SKIN: Warm and dry. NECK: Supple, trachea midline. No JVD or lymphadenopathy. CARDIOVASCULAR: Regular rate and rhythm without murmurs, gallops, or rubs. Left arm AVF RESPIRATORY: Breath sounds equal bilaterally. No accessory muscle use. GASTROINTESTINAL: Abdomen soft, non-tender. Postsurgical site left side. +BS MUSCULOSKELETAL: No cyanosis or edema. - Urinary Catheter Management Indwelling Urethral Catheter Cath placed during this visit: yes Urethral indwelling: No Reason for continuing: Decision to DC catheter Insertion date: 05/14/18 Insertion time: 21:45 Assessment and Plan - Assessment (1) ESRD (end stage renal disease) on dialysis Code(s): N18.6 - End stage renal disease; Z99.2 - Dependence on renal dialysis Status: Acute - Plan Patient with end stage renal disease, on HD, Now has Cadaveric Renal transplant. Patient still has low urine out put. BUN and Creatinine increase, has HD Monday. Prograf level was low yesterday, will follow today's level. BP slightly elevated, started on on PO Metoprolol. Tac is 4 mg q 12 Follow the urine out put and BMP. need HD set up as out patient d/w Dr. Redman will do dialysis prior to discharge and then he can come back on Monday for follow up as out patient 1510 pm seen at dialysis UF 2 L doing well
--- NOTE | 2018-05-21 13:07 | DRUGHERB ---
Brent Askew 1965 [id number] Patient educated on discharge medications with no questions to the pharmacist. Pharmacist will be available for any question prior discharge.
--- NOTE | 2018-05-21 13:09 | US ---
EXAM DATE: 05/21/2018 1:00 PM EST AGE/SEX: 53 years / Male INDICATIONS: Increased lab values. CLINICAL DATA: This is the patient's subsequent encounter. Patient reports that signs and symptoms h ave been present for 1 week and indicates a pain score of 2/10. MEDICAL/SURGICAL HISTORY: Hypertension. Diabetes mellitus type II. Renal failure. Renal trans plant failure and rejection. . Renal transplant x 2. Left arm AV Fistula. Bilateral hip replacemen t. Colectomy. COMPARISON: [facility] [place], RENAL TRANSPLANT W DOP, 05/15/2018. . MEASUREMENTS: Transplant Kidney:__10.3 x 6.1 x 5.7 cm Location:__Left lower quadrant Arcuate Arteries Resistive Index: Upper - 0.7 Mid - 0.7 Lower - 0.7 Main Renal Artery Velocity:__237 cm/sec Main Renal Vein:__Patent External Iliac Artery Velocity:__115 cm/sec External Iliac Vein:__Patent FINDINGS: Transplant Kidney: Normal echogenicity and cortical thickness. No mass or hydronephrosis. Trace flui d upper pole Urinary Bladder: Decompressed. Not well evaluated. Other: None. CONCLUSION: 1. Trace fluid upper pole. Mildly elevated main renal artery velocity with normal resistive index. N o hydronephrosis. Electronically signed by: Miguel Sexton MD Board Certified Radiologist 05/21/2018 1:07 PM EST
--- NOTE | 2018-05-21 13:09 | DRUGHERB ---
Brent Askew 1965 [id number] Patient educated on discharge medications with no questions to the pharmacist. Pharmacist will be available for any question prior discharge.
--- NOTE | 2018-05-21 13:11 | DRUGHERB ---
Brent Askew 1965 [id number] Patient educated on discharge medications with no questions to the pharmacist. Pharmacist will be available for any question prior discharge. Krupa JamesD
[2018-05-21] MEDS: hydrALAZINE 10 MG Tablet PO SCH ×2 (13:28→18:31)
[2018-05-21 13:32] VITALS: BP 149/73; TEMP 98
[2018-05-21 16:24] VITALS: PULSE 64
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
== END 2018-05-21 20:10 | disposition home or self-care (01) ==
LOC: HCPC 16:34 → HCVI 21:49 → HCPC 05-16 11:15
PROVIDERS: ADMIT Hospitalist; ATTEND Hospitalist
DX: E11.22 Type 2 diabetes mellitus with diabetic chronic kidney disease; J98.11 Atelectasis; I70.8 Atherosclerosis of other arteries; Z79.82 Long term (current) use of aspirin; R63.0 Anorexia; G47.30 Sleep apnea, unspecified; N18.6 End stage renal disease; Z79.899 Other long term (current) drug therapy; T86.12 Kidney transplant failure; M10.00 Idiopathic gout, unspecified site; Z82.49 Family history of ischemic heart disease and other diseases of the circulatory system; Y83.0 Surgical operation with transplant of whole organ as the cause of abnormal reaction of the patient, or of later complication, without mention of misadventure at the time of the procedure; Z90.49 Acquired absence of other specified parts of digestive tract; Z83.3 Family history of diabetes mellitus; I12.0 Hypertensive chronic kidney disease with stage 5 chronic kidney disease or end stage renal disease; Z99.2 Dependence on renal dialysis; Z96.649 Presence of unspecified artificial hip joint; E87.5 Hyperkalemia; B37.9 Candidiasis, unspecified

== ENCOUNTER 2018-07-20 08:20 | Observation (INO) ==
[2018-07-20 10:08] LABS: Baso % (Auto) 0.1 % (0.0-2.0); Eos % (Auto) 0.3 % (0.0-4.0); Hemoglobin 8.6 gm/dL (13.0-17.0); Lymph # (Auto) 0.4 th/mm3 (1.0-4.8); Lymph % (Auto) 8.1 % (9.0-44.0); Mean Corpuscular HGB Conc 31.7 % (32.0-36.0); Mean Corpuscular Hemoglobin 33.4 pg (27.0-34.0); Mean Corpuscular Volume 105.3 fL (80.0-100.0); Mean Platelet Volume 8.3 fL (7.0-11.0); Mono # (Auto) 0.4 th/mm3 (0.0-0.9); Neut # (Auto) 4.4 th/mm3 (1.8-7.7); Neut % (Auto) 84.5 % (16.0-70.0); Platelet Count 105 th/mm3 (150-450); Red Blood Count 2.56 mil/mm3 (4.50-5.90); Red Cell Distribution Width 16.6 % (11.6-17.2); White Blood Count 5.2 th/mm3 (4.0-11.0)
[2018-07-20 10:30] LABS: Albumin 4.7 g/dL (3.4-5.0); Anion Gap 6 meq/L (5-15); Aspartate Aminotransferase 3 U/L (15-37); Blood Urea Nitrogen 24 mg/dL (7-18); Calcium 8.2 mg/dL (8.5-10.1); Carbon Dioxide 15.7 meq/L (21.0-32.0); Chloride 122 meq/L (98-107); Glomerular Filtration Rate 42 mL/min (>89); Glucose,Random 96 mg/dL (74-106); Potassium 4.7 meq/L (3.5-5.1); Sodium 144 meq/L (136-145)
[2018-07-20 10:31] LABS: Alanine Aminotransferase 17 U/L (12-78)
[2018-07-20 10:33] LABS: Alkaline Phosphatase 30 U/L (45-117); Total Protein 6.5 g/dL (6.4-8.2)
[2018-07-20] MEDS ORDERED: Acetaminophen 325 MG Tablet PO PRN (10:38)
[2018-07-20] MEDS ORDERED: Bisacodyl 10 MG Supp RECTAL PRN (10:38)
--- NOTE | 2018-07-20 11:12 | P.HPNP ---
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 Patient states he has been passing good urine denies any chest pains, fever or chills, he denies any dysuria or burning. His donor specific antibodies are positive last week and he received extra treatment with plasmapheresis and IVIG. - Diagnosis (1) Acute rejection of kidney transplant (2) Hypertension (3) Kidney transplant recipient Inpatient Certification: I certify that the inpatient services were ordered in accordance with Medicare regulations governing the order. This includes certification that hospital inpatient services are reasonable and necessary and in the case of services not specified as inpatient-only under 42 CFR 419.22(n), that they are appropriately provided as inpatient services in accordance to with the 2-midnight benchmark under 43 CFR 412.3(e) Estimated Total Length of Stay (Days): 1 (Observation for 1 day) Plans for Post Hospital Care: Home Review of Systems Constitutional: Denies anorexia, Denies body ache(s), Denies chills, Denies daytime sleepiness, Denies excessive sweating, Denies fatigue, Denies fever(s), Denies headache(s), Denies increased appetite, Denies lack of energy, Denies malaise, Denies night sweats, Denies weakness, Denies weight gain, Denies weight loss, Denies other Eyes: Denies blind spots, Denies blurry vision, Denies bulging eyes, Denies change in vision, Denies double vision, Denies discharge, Denies dry eyes, Denies floaters, Denies irritation, Denies itchy eyes, Denies loss of vision, Denies pain, Denies requires corrective lenses, Denies sensitivity to light, Denies other Ears, Nose, Mouth, and Throat: Denies abnormal hearing, Denies bleeding gums, Denies bad breath, Denies change in voice, Denies dental pain, Denies difficulty swallowing, Denies dizziness, Denies dry mouth, Denies ear discharge , Denies ear pain, Denies facial pain, Denies headache(s), Denies hearing loss, Denies hoarseness, Denies lip swelling, Denies nosebleed, Denies mouth lesions, Denies mouth pain, Denies nasal congestion, Denies nasal discharge, Denies nasal obstruction, Denies nasal trauma, Denies neck lump, Denies neck pain, Denies nose pain, Denies pain with swallowing, Denies poor balance, Denies post nasal drip, Denies ringing in the ears, Denies sinus pain, Denies sinus pressure , Denies sore throat, Denies throat swelling, Denies tongue swelling, Denies other Cardiovascular: Denies chest pain, Denies chest pain at rest, Denies chest pain with activity, Denies excessive sweating, Denies fainting, Denies fast heart rate, Denies foot swelling, Denies generalized swelling, Denies irregular heart rhythm, Denies leg pain with activity, Denies leg sores, Denies leg swelling, Denies lightheadedness, Denies radiating jaw, neck or arm pain, Denies rapid, pounding, or irregular heartbeat, Denies shortness of breath, Denies shortness of breath with activity, Denies shortness of breath when lying down, Denies shortness of breath causing sudden awakening, Denies slow heart rate, Denies other Respiratory: Denies change in phlegm color, Denies chest congestion, Denies cough, Denies coughing up blood, Denies excessive phlegm production, Denies pain on inspiration, Denies pain with cough, Denies shortness of breath, Denies shortness of breath with activity, Denies snoring, Denies stridor, Denies wheezing, Denies other Gastrointestinal: Denies abdominal pain, Denies belching, Denies black, tarry stools, Denies bloating, Denies bright, red blood in stools, Denies change in bowel habits, Denies constant urge to pass stool, Denies change in stools, Denies coffee ground vomit, Denies constipation, Denies cramping, Denies difficulty swallowing, Denies excessive passing of gas, Denies feeling full early, Denies heartburn, Denies incontinent of stools, Denies loose stools, Denies nausea, Denies pain with swallowing, Denies vomiting, Denies vomiting blood, Denies other Genitourinary: Denies blood in semen, Denies blood in urine, Denies decreased urination, Denies difficulty urinating, Denies difficulty with ejaculations, Denies erectile dysfunction, Denies genital lesions, Denies genital pain, Denies painful urination, Denies side pain, Denies frequent nighttime urination , Denies painful ejaculations, Denies penile discharge, Denies scrotal swelling , Denies testicle lump, Denies testicle pain, Denies urinary frequency, Denies urinary hesitancy, Denies urinary incontinence, Denies urinary urgency, Denies other Musculoskeletal: Denies abnormal walking, Denies back pain, Denies body aches, Denies decreased muscle mass, Denies deformity, Denies joint pain, Denies joint swelling, Denies limited joint movement, Denies loss of height, Denies muscle cramps, Denies muscle weakness, Denies neck pain, Denies numbness, Denies radiating pain into limb, Denies stiffness, Denies tingling, Denies other Skin/Breast: Denies acne, Denies bleeding lesions, Denies boil, Denies breast swelling, Denies breast skin changes, Denies breast pain, Denies breast lump, Denies change in breast shape, Denies change in hair, Denies change in skin color, Denies changing lesions, Denies dry skin, Denies excessive hair growth, Denies hair loss, Denies itching, Denies lesions, Denies nail changes, Denies new lesions, Denies nipple discharge, Denies non-healing lesions, Denies redness , Denies sensitivity to light, Denies rash, Denies skin pain, Denies skin ulcer , Denies sores, Denies stretch garzon, Denies unusual bruising, Denies wounds, Denies yellowing of the skin, Denies other Neurologic: Denies abnormal hearing, Denies abnormal movements, Denies abnormal speech, Denies abnormal walking, Denies behavioral changes, Denies burning sensations, Denies confusion, Denies dizziness, Denies fainting, Denies frequent falls, Denies headache(s), Denies lack of coordination, Denies localized weakness, Denies loss of vision, Denies memory loss, Denies numbness, Denies other visual disturbances, Denies radiating pain, Denies restless legs, Denies convulsions, Denies seizure-like activity, Denies sensory deficit, Denies tingling, Denies tingling/numbness/burning sensations, Denies tremor(s), Denies unsteadiness, Denies weakness, Denies other Psychiatric: Denies abnormal sleep pattern, Denies anxiety, Denies behavioral changes, Denies change in appetite, Denies change in sex drive, Denies confusion , Denies depression, Denies difficulty concentrating, Denies hearing things others do not hear, Denies hopelessness, Denies irritability, Denies lack of enjoyment, Denies memory loss, Denies mood swings, Denies panic attacks, Denies paranoia, Denies seeing things others do not see, Denies sensing things others do not sense, Denies tactile hallucinations, Denies thoughts of hurting/killing others, Denies thoughts of hurting/killing yourself, Denies other Endocrine: Denies cold intolerance, Denies excessive sweating, Denies flushing, Denies heat intolerance, Denies increased hunger, Denies increased thirst, Denies increased urination, Denies rapid, pounding, or irregular heartbeat, Denies other Hematologic/Lymphatic: Denies easy bleeding, Denies easy bruising, Denies enlarged lymph nodes, Denies other Allergic/Immunologic: Denies GI upset with certain foods, Denies hives, Denies itchy eyes, Denies lip swelling, Denies seasonal runny nose, Denies throat swelling, Denies tongue swelling, Denies wheezing, Denies other PMFSH - History History Provided By: Patient - Medical History Medical History: Medical History (Last Reviewed 07/20/18 @ 11:08 by James White MD) History of anesthesia reaction History of blood product transfusion Presence of orthopedic joint implant Acute renal failure GI bleed Hypertension Diabetes 1.5, managed as type 2 HTN (hypertension) HTN (hypertension) - Surgical History Surgical History: Surgical History (Last Reviewed 07/20/18 @ 11:08 by James White MD) Kidney transplant recipient Renal transplant recipient S/p cadaver renal transplant Status post colectomy History of hip replacement, total - Family History Family History: Family History (Last Reviewed 07/20/18 @ 11:08 by James White MD) Father HTN (hypertension) Mother Diabetes 1.5, managed as type 2 S/P CABG x 3 HTN (hypertension) - Social History I have reviewed the patient's Social History: Yes - Tobacco History Second Hand Smoke Exposure: No Tobacco Use In Past 30 Days: No Smoking Status: Never smoker - Alcohol History How Often Do You Have a Drink Containing Alcohol: Never - Substance Use History Substance History: No History of Abuse - Travel History History of Recent Travel: No Recent Travel in the [place] Within the Last 8 Weeks: No Recent Travel Out of the Country Within the Last 8 Weeks: No - Immunization History Tetanus Immunization: Unsure Hx Influenza Vaccine This Season: Yes Medications and Allergies Active Medications: Active Medications Acetaminophen (Tylenol) 650 mg PO Q4H PRN PRN Reason: Temp > 100.4 Al Hydroxide/Mg Hydroxide (Milk Of Magnesia Liq) 30 ml PO Q12H PRN PRN Reason: Mild Constipation Aspirin (Ecotrin) 81 mg PO DAILY FRANSIS[facility] Bisacodyl (Dulcolax Supp) 10 mg RECTAL DAILY PRN PRN Reason: SEVERE CONSITIPATION Hydralazine HCl (Apresoline) 50 mg PO TID [facility]ANSIS[facility] Lactulose (Lactulose Liq) 30 ml PO DAILY PRN PRN Reason: SEVERE CONSITIPATION Magnesium Oxide (Mag-Ox) 800 mg PO BID [facility] Metoprolol Tartrate (Lopressor) 25 mg PO BID [facility] Mycophenolate Mofetil (Cellcept) 1,000 mg PO BID@0600,1800 [facility] Nitroglycerin (Nitrostat Sl) 0.4 mg SL Q5M PRN PRN Reason: CHEST PAIN Ondansetron HCl (Zofran Inj) 4 mg IV.PUSH Q6H PRN PRN Reason: NAUSEA OR VOMITING Pantoprazole Sodium (Protonix) 40 mg PO DAILY [facility] Potassium Phosphate (K-Phos Original) 500 mg PO DAILY [facility] Prednisone (Deltasone Liq) 20 mg PO DAILY [facility] Senna/Docusate Sodium (Marilee-Colace) 1 tab PO BID [facility] Sennosides (Senokot) 17.2 mg PO Q12H PRN PRN Reason: Moderate Constipation Sodium Chloride (Ns Flush) 2 ml IV.FLUSH BID FRANSIS[facility] Sodium Chloride (Ns Flush) 2 ml IV.FLUSH PRN PRN PRN Reason: FLUSH AFTER USING IV ACCESS Tacrolimus (Prograf) 4 mg PO BID@0600,1800 [facility] Tacrolimus (Prograf) 5 mg PO BID@0600,1800 [facility] Tamsulosin HCl (Flomax) 0.4 mg PO DAILY [facility] Trimethoprim/Sulfamethoxazole (Bactrim Ds) 1 tab PO MoWeFr [facility] Valganciclovir (Valcyte) 450 mg PO DAILY [facility] Allergies Allergy/AdvReac Type Severity Reaction Status Date / Time No Known Allergies Allergy Verified 07/20/18 10:10 Home Medications Medication Instructions Recorded Confirmed Type aspirin [Aspirin Low Dose] 81 mg PO HS 12/28/17 07/20/18 History ferrous sulfate 325 mg PO DAILY 06/18/18 07/20/18 History multivitamin 1 tab PO QAM 06/18/18 07/20/18 History cinacalcet [Sensipar] 20 mg PO HS 07/03/18 07/20/18 History hydralazine 50 mg PO TID 07/20/18 07/20/18 History Exam Vital signs: Intake & Output 07/19/18 07/20/18 07/20/18 18:59 06:59 18:59 Weight 106.05 kg Other: Weight On Admission 106.05 kg Narrative: GENERAL: Well-nourished, well-developed patient. SKIN: Warm and dry. HEAD: Normocephalic. EYES: No scleral icterus. No injection or drainage. NECK: Supple, trachea midline. No JVD or lymphadenopathy. CARDIOVASCULAR: Regular rate and rhythm without murmurs, gallops, or rubs. RESPIRATORY: Breath sounds equal bilaterally. No accessory muscle use. GASTROINTESTINAL: Abdomen soft, non-tender, nondistended. EXTREMITIES: No edema NEUROLOGICAL: Awake, alert, and oriented x 3. Non-focal. Results - Lab Results 07/20/18 09:59 07/20/18 09:59 Most recent lab results Calcium 8.2 mg/dL (8.5-10.1) L 07/20/18 09:59 Caprini VTE Risk Assessment Caprini VTE Risk Assessment: Moderate/High Risk (score >= 2) VTE Pharmacological Exception Reason: High risk for bleeding (SCD) Caprini Risk Assessment Model: Point Value = 1 Point Value = 2 Point Value = 3 Point Value = 5 Age 41-60 Minor surgery BMI > 25 kg/m2 Swollen legs Varicose veins or History of unexplained or recurrent spontaneous Oral contraceptives or hormone replacement Sepsis (< 1 month) Serious lung disease, including pneumonia (< 1 month) Abnormal pulmonary function Acute myocardial infarction Congestive heart failure (< 1 month) History of inflammatory bowel disease Medical patient at bed rest Age 61-74 Arthroscopic surgery Major open surgery (> 45 min) Laparoscopic surgery (> 45 min) Malignancy Confined to bed (> 72 hours) Immobilizing plaster cast Central venous access Age >= 75 History of VTE Family history of VTE Factor V Leiden Prothrombin [id number] Lupus anticoagulant Anticardiolipin antibodies Elevated serum homocysteine Heparin-induced thrombocytopenia Other congenital or acquired thrombophilia Stroke (< 1 month) Elective arthroplasty Hip, pelvis, or leg fracture Acute spinal cord injury (< 1 month) Prophylaxis Regimen: Total Risk Factor Score Risk Level Prophylaxis Regimen 0-1 Low Early ambulation 2 Moderate Order ONE of the following: *Sequential Compression Device (SCD) *Heparin 5000 units SQ BID 3-4 Higher Order ONE of the following medications: *Heparin 5000 units SQ TID *Enoxaparin/Lovenox 40 mg SQ daily (WT < 150 kg, CrCl > 30 mL/min) *Enoxaparin/Lovenox 30 mg SQ daily (WT < 150 kg, CrCl > 10-29 mL/min) *Enoxaparin/Lovenox 30 mg SQ BID (WT < 150 kg, CrCl > 30 mL/min) AND/OR *Sequential Compression Device (SCD) 5 or more Highest Order ONE of the following medications: *Heparin 5000 units SQ TID (Preferred with Epidurals) *Enoxaparin/Lovenox 40 mg SQ daily (WT < 150 kg, CrCl > 30 mL/min) *Enoxaparin/Lovenox 30 mg SQ daily (WT < 150 kg, CrCl > 10-29 mL/min) *Enoxaparin/Lovenox 30 mg SQ BID (WT < 150 kg, CrCl > 30 mL/min) AND *Sequential Compression Device (SCD) Assessment and Plan - Assessment (1) Acute rejection of kidney transplant Code(s): T86.11 - Kidney transplant rejection Status: Acute Plan: Patient is here for plasmapheresis followed by IVIG and calculated dose of 55 g will be infused, this will be followed by rituximab 730 mg IV, due to the length to infuse above medication, he will be staying overnight, we will check CBC, CMP tacrolimus level and magnesium and phosphorus in a.m. Continue with prednisone 20 mg daily, Prograf 9 mg twice daily, CellCept 1000 mg twice daily. Possible discharge in a.m. Discussed with Dr. Feroz Whiet, appreciate their assistance. (2) Hypertension Code(s): I10 - Essential (primary) hypertension Status: Chronic Plan: On metoprolol and hydralazine continue to monitor (3) Kidney transplant recipient Code(s): Z94.0 - Kidney transplant status Status: Acute Plan: On prednisone, Prograf and CellCept follow renal functions H&P: Quality - VTE Deep Vein Thrombosis/Pulmonary Embolism Present on Admission: No (2) Hypertension Qualifiers: Hypertension type: essential hypertension Qualified Code(s): I10 - Essential (primary) hypertension
[2018-07-20 12:06] VITALS: O2SAT 100
[2018-07-20] MEDS: hydrALAZINE 50 MG Tablet PO SCH ×2 (12:07→22:07)
[2018-07-20] MEDS ORDERED: Heparin Central Flush 100 UNIT/ML 5 ML Vial IV.FLUSH SCH (12:45)
[2018-07-20] MEDS ORDERED: Heparin 2,000 UNITS/2 ML Vial (for IV use) IV.FLUSH SCH (13:00)
[2018-07-20] MEDS ORDERED: SODIUM CHLOR 0.9% IV.SIG ONE ×2 (13:00→15:00)
[2018-07-20] MEDS ORDERED: ALBUMIN HUMAN 5% IV.SIG ONE (13:00)
[2018-07-20] MEDS ORDERED: CALCIUM GLUCONATE IV.SIG ONE (13:00)
[2018-07-20] MEDS ORDERED: Anticoagulant Citrate Dextrose 1,000 ML Solution EXTRACORPO ONE (13:00)
--- NOTE | 2018-07-20 13:08 | P.CON ---
History of Present Illness Service: Hematology Consult date: 07/20/18 Requesting Physician: James White Reason for Consult: Coordination of plasmapheresis Primary Care Provider: No Primary Care Physician Chief Complaint: Acute rejection History of Present Illness: Mr. Askew is a very pleasant 53-year-old male with a history of chronic renal failure. He had his first kidney transplant back in 1997. He developed kidney failure in 2013 after he had large volume GI bleed. He was resumed on hemodialysis. In May 2018 he underwent a second kidney transplant. This was done by transplant surgeon Dr. Redman. He has had a total of 7 plasmapheresis combination though inpatient and outpatient service. Hematology was consulted for coordination of plasma exchange. Recommendations have been made for him to receive IVIG and Rituxan after his plasmapheresis today. He will receive 55 g of IVIG and 730 mg of Rituxan. His drop board worker Dr. White has been monitoring him for donor specific antibodies. These were positive last week and he did receive 1 dose of IVIG with plasmapheresis at that time. He is currently on therapy directed by nephrology of prednisone 20 mg, Prograf 9 mg twice daily and CellCept 1000 mg twice daily. His fibrinogen was reviewed and noted to be slightly low at 172. The patient denies any bleeding since having his plasma exchange treatments. The patient reports overall he is feeling well. He denies any bleeding. He is not having any easy bruising. No fevers. He is anxious to see what the Rituxan will add related to his antibody levels. Review of Systems All other systems reviewed negative except as stated in HPI PMFSH - History History Provided By: Patient - Medical History Medical History: Medical History (Last Reviewed 07/20/18 @ 11:08 by James White MD) History of anesthesia reaction History of blood product transfusion Presence of orthopedic joint implant Acute renal failure GI bleed Hypertension Diabetes 1.5, managed as type 2 HTN (hypertension) HTN (hypertension) - Surgical History Surgical History: Surgical History (Last Reviewed 07/20/18 @ 11:08 by James White MD) Kidney transplant recipient Renal transplant recipient S/p cadaver renal transplant Status post colectomy History of hip replacement, total - Family History Family History: Family History (Last Reviewed 07/20/18 @ 11:08 by James White MD) Father HTN (hypertension) Mother Diabetes 1.5, managed as type 2 S/P CABG x 3 HTN (hypertension) - Social History I have reviewed the patient's Social History: Yes - Tobacco History Second Hand Smoke Exposure: No Tobacco Use In Past 30 Days: No Smoking Status: Never smoker - Alcohol History How Often Do You Have a Drink Containing Alcohol: Never - Substance Use History Substance History: No History of Abuse - Travel History History of Recent Travel: No Recent Travel in the [place] Within the Last 8 Weeks: No Recent Travel Out of the Country Within the Last 8 Weeks: No - Immunization History Tetanus Immunization: Unsure Hx Influenza Vaccine This Season: Yes Medications and Allergies Active Medications: Active Medications Acetaminophen (Tylenol) 650 mg PO Q4H PRN PRN Reason: Temp > 100.4 Acetaminophen (Tylenol) 650 mg PO Q24H [facility] Stop: 07/21/18 11:59 Al Hydroxide/Mg Hydroxide (Milk Of Magnesia Liq) 30 ml PO Q12H PRN PRN Reason: Mild Constipation Aspirin (Ecotrin) 81 mg PO DAILY [facility] Bisacodyl (Dulcolax Supp) 10 mg RECTAL DAILY PRN PRN Reason: SEVERE CONSITIPATION Diphenhydramine HCl (Benadryl) 25 mg PO Q24H [facility] Stop: 07/21/18 11:59 Diphenhydramine HCl (Benadryl Inj) 50 mg IV.PUSH PRN PRN PRN Reason: ALLERGIC REACTION Stop: 07/22/18 11:47 Epinephrine HCl (Epinephrine (1:1000) Inj) 0.3 mg OTHER Q10M PRN PRN Reason: Anaphylactic Reaction Stop: 07/22/18 11:47 Hydralazine HCl (Apresoline) 50 mg PO TID [facility] Last Admin: 07/20/18 12:07 Dose: 50 mg Dextrose (D5w Inj) 500 mls @ 30 mls/hr OTHER Q24H [facility] Stop: 07/21/18 11:59 Immune Globulin 55 gm/ (Miscellaneous Medication) 550 mls @ 68.75 mls/hr IV.SIG TITRATE [facility]; Protocol Stop: 07/21/18 12:47 Sodium Chloride (Ns Inj) 500 mls @ 500 mls/hr IV.SIG Q24H [facility] Stop: 07/21/18 11:59 Lactulose (Lactulose Liq) 30 ml PO DAILY PRN PRN Reason: SEVERE CONSITIPATION Magnesium Oxide (Mag-Ox) 800 mg PO BID [facility] Metoprolol Tartrate (Lopressor) 25 mg PO BID [facility] Mycophenolate Mofetil (Cellcept) 1,000 mg PO BID@0600,1800 [facility] Nitroglycerin (Nitrostat Sl) 0.4 mg SL Q5M PRN PRN Reason: CHEST PAIN Ondansetron HCl (Zofran Inj) 4 mg IV.PUSH Q6H PRN PRN Reason: NAUSEA OR VOMITING Pantoprazole Sodium (Protonix) 40 mg PO DAILY [facility] Potassium Phosphate (K-Phos Original) 500 mg PO DAILY [facility] Prednisone (Deltasone Liq) 20 mg PO DAILY [facility] Senna/Docusate Sodium (Marilee-Colace) 1 tab PO BID [facility] Sennosides (Senokot) 17.2 mg PO Q12H PRN PRN Reason: Moderate Constipation Sodium Chloride (Ns Flush) 2 ml IV.FLUSH BID [facility] Sodium Chloride (Ns Flush) 2 ml IV.FLUSH PRN PRN PRN Reason: FLUSH AFTER USING IV ACCESS Tacrolimus (Prograf) 4 mg PO BID@0600,1800 [facility] Tacrolimus (Prograf) 5 mg PO BID@0600,1800 [facility] Tamsulosin HCl (Flomax) 0.4 mg PO DAILY [facility] Trimethoprim/Sulfamethoxazole (Bactrim Ds) 1 tab PO MoWeFr [facility] Valganciclovir (Valcyte) 450 mg PO DAILY [facility] Allergies Allergy/AdvReac Type Severity Reaction Status Date / Time No Known Allergies Allergy Verified 07/20/18 10:10 Home Medications Medication Instructions Recorded Confirmed Type aspirin [Aspirin Low Dose] 81 mg PO HS 12/28/17 07/20/18 History ferrous sulfate 325 mg PO DAILY 06/18/18 07/20/18 History multivitamin 1 tab PO QAM 06/18/18 07/20/18 History cinacalcet [Sensipar] 20 mg PO HS 07/03/18 07/20/18 History hydralazine 50 mg PO TID 07/20/18 07/20/18 History Physical Exam Vital signs: Vital Signs 07/20/18 12:03 Temperature 97.8 F Pulse Rate 61 Respiratory Rate 16 Blood Pressure 143/82 H Pulse Oximetry 100 Intake & Output 07/19/18 07/20/18 07/20/18 18:59 06:59 18:59 Weight 233 lb 12.8 oz Other: Weight On Admission 233 lb 12.8 oz - Constitutional no acute distress - Routine HEENT Exam Head: Present: normocephalic Eye: Present: EOMI, PERRL ENT: Present: mucous membranes moist - Routine Neck Exam Present: supple - Routine Respiratory Exam Present: CTA bilaterally - Detailed Respiratory Exam right Present: rhonchi - Routine Cardiovascular Exam Present: RRR - Routine Abdominal Exam Present: soft - Routine Skin Exam Present: intact - Routine Neurological Exam Present: alert, oriented X3 - Detailed Neurological Exam: Coma Scale Eye Opening: Spontaneous Verbal Response: Oriented Motor Response: Obey commands Kelsie Coma Scale Total: 15 - Routine Psychiatric Exam Present: normal affect - Additional findings Additional findings: Vas-Cath in place to right upper chest wall. Dressing covering is dry and intact. No bleeding. Results - Labs CBC & Chem 7: 07/20/18 09:59 07/20/18 09:59 Labs: Laboratory Results - last 24 hr 07/20/18 07/20/18 07/20/18 09:59 09:59 09:59 WBC 5.2 RBC 2.56 L Hgb 8.6 L Hct 27.0 L MCV 105.3 H MCH 33.4 MCHC 31.7 L RDW 16.6 Plt Count 105 L MPV 8.3 Neut % (Auto) 84.5 H Lymph % (Auto) 8.1 L [place] % (Auto) 7.0 Eos % (Auto) 0.3 Baso % (Auto) 0.1 Neut # (Auto) 4.4 Lymph # (Auto) 0.4 L [place] # (Auto) 0.4 Eos # (Auto) 0.0 Baso # (Auto) 0.0 WBC Differential . Differential Comment Auto diff final Fibrinogen 172 L Sodium 144 Potassium 4.7 Chloride 122 H Carbon Dioxide 15.7 L Anion Gap 6 BUN 24 H Creatinine 2.03 H Estimated GFR 42 L Random Glucose 96 Calcium 8.2 L Total Bilirubin 0.3 AST 3 L ALT 17 Alkaline Phosphatase 30 L Total Protein 6.5 Albumin 4.7 Assessment and Plan - Plan Mr. Askew is a very pleasant 53-year-old gentleman who we have been asked to see to coordinate plasma exchange for transplant rejection. Plasma exchange will be given today. This will be his eighth plasmapheresis. He will again receive IVIG followed by Rituxan. The dosing on his IVIG will be at 55 mg. Rituxan will be at 730 mg. Premeds will be given as ordered. I have discussed with Dr. James White who recommends he can be discharged tomorrow after completion of Rituxan. I will add on coags for labs tomorrow morning to ensure he does not need any cryoprecipitate prior to discharge. Further plasma exchange will be discussed after the patient repeats his antibody labs with his drop board worker. We will be more than happy to coordinate further plasma exchange as necessary on an inpatient or outpatient basis. I did review with patient to monitor for any oozing from his Vas-Cath site. Discussed Condition With: Dr James White
[2018-07-20] MEDS ORDERED: Sodium Chlor 0.9% Inj 500 ML IV.SIG SCH (13:30)
[2018-07-20] MEDS ORDERED: Acetaminophen 325 MG Tablet PO SCH (13:30)
[2018-07-20] MEDS ORDERED: IVIG IV.SIG SCH (14:00)
[2018-07-20] MEDS ORDERED: Acetaminophen 325 MG Tablet PO ONE (14:00)
[2018-07-20] MEDS ORDERED: RITUXIMAB IV.SIG ONE (15:00)
[2018-07-20] MEDS: Magnesium Oxide 400 MG Tablet PO SCH (21:03)
[2018-07-20] MEDS: Metoprolol Tartrate 25 MG Tablet PO SCH (22:07)
[2018-07-20] MEDS: Senna/Docusate Sodium 8.6/50 MG Tablet PO SCH (22:07)
[2018-07-20 22:18] LABS: INR 1.5 Ratio; Prothrombin Time 15.5 sec (9.8-11.6)
[2018-07-20 22:19] LABS: Activated Partial Thrombo Time 52.8 sec (23.4-31.7)
[2018-07-21] MEDS ORDERED: Sod Chloride 0.9% Inj 1,000 ML IV.SIG PRN (01:20)
[2018-07-21 05:03] LABS: Baso % (Auto) 0.1 % (0.0-2.0); Eos % (Auto) 0.5 % (0.0-4.0); Hematocrit 23.8 % (39.0-51.0); Hemoglobin 7.6 gm/dL (13.0-17.0); Lymph # (Auto) 0.3 th/mm3 (1.0-4.8); Lymph % (Auto) 7.7 % (9.0-44.0); Mean Corpuscular Hemoglobin 33.2 pg (27.0-34.0); Mean Corpuscular Volume 103.6 fL (80.0-100.0); Mean Platelet Volume 8.7 fL (7.0-11.0); Mono # (Auto) 0.1 th/mm3 (0.0-0.9); Mono % (Auto) 3.2 % (0.0-8.0); Neut # (Auto) 3.2 th/mm3 (1.8-7.7); Neut % (Auto) 88.5 % (16.0-70.0); Platelet Count 93 th/mm3 (150-450); Red Cell Distribution Width 16.3 % (11.6-17.2); White Blood Count 3.6 th/mm3 (4.0-11.0)
[2018-07-21 05:20] LABS: INR 1.4 Ratio; Prothrombin Time 14.3 sec (9.8-11.6)
[2018-07-21 05:43] LABS: Alanine Aminotransferase 8 U/L (12-78); Albumin 4.3 g/dL (3.4-5.0); Alkaline Phosphatase 15 U/L (45-117); Anion Gap 7 meq/L (5-15); Blood Urea Nitrogen 24 mg/dL (7-18); Calcium 7.4 mg/dL (8.5-10.1); Chloride 121 meq/L (98-107); Glomerular Filtration Rate 33 mL/min (>89); Glucose,Random 96 mg/dL (74-106); Magnesium 1.5 mg/dL (1.5-2.5); Phosphorus 1.5 mg/dL (2.5-4.9); Potassium 4.7 meq/L (3.5-5.1); Sodium 143 meq/L (136-145); Total Protein 6.1 g/dL (6.4-8.2)
[2018-07-21 06:21] LABS: Lymphocytes 2 % (9-44); Monocytes 1 % (0-8); Myelocytes 1 % (0-0)
[2018-07-21 06:22] LABS: Platelet Morphology Normal (Normal); Tear Drop Cells 1+
[2018-07-21 06:35] VITALS: RESP 18
[2018-07-21] MEDS: hydrALAZINE 50 MG Tablet PO SCH ×2 (08:55→12:17)
[2018-07-21] MEDS: Magnesium Oxide 400 MG Tablet PO SCH (08:55)
[2018-07-21] MEDS: Metoprolol Tartrate 25 MG Tablet PO SCH (08:55)
[2018-07-21] MEDS ORDERED: Potassium Phosphate 500 MG Soluble Tablet PO SCH (09:00)
[2018-07-21] MEDS ORDERED: predniSONE Liq 5 MG/5 ML UDC PO SCH (09:00)
[2018-07-21] MEDS: Senna/Docusate Sodium 8.6/50 MG Tablet PO SCH (09:26)
--- NOTE | 2018-07-21 09:46 | P.PNONC ---
Subjective Interval history: Afebrile. Patient ambulating in room. He is frustrated with his current medical situation. Status post plasmapheresis, rituximab and IVIG yesterday. Pending cryoprecipitate infusion today. Patient denies any chest pain, shortness of breath, bleeding. Appetite remains normal. Objective Vital Signs/Intake & Output: Vital Signs 07/20/18 12:03 07/20/18 19:38 07/20/18 19:40 Temperature 97.8 F Pulse Rate 61 77 78 Respiratory Rate 16 16 16 Blood Pressure 143/82 H 110/67 110/67 Pulse Oximetry 100 100 07/20/18 19:50 07/20/18 20:10 07/20/18 21:01 Temperature 98.2 F 97.6 F Pulse Rate 76 68 71 Respiratory Rate 16 18 15 Blood Pressure 121/67 100/68 111/69 Pulse Oximetry 100 100 100 07/20/18 22:08 07/20/18 23:08 07/21/18 01:16 Temperature 97.9 F 97.8 F 98.5 F Pulse Rate 70 78 81 Respiratory Rate 15 18 18 Blood Pressure 124/74 135/78 131/81 Pulse Oximetry 100 100 100 07/21/18 02:16 07/21/18 04:15 07/21/18 06:33 Temperature 97.7 F 97.8 F 97.5 F L Pulse Rate 79 85 77 Respiratory Rate 16 16 18 Blood Pressure 135/80 154/82 H 141/88 H Pulse Oximetry 100 100 100 07/21/18 08:44 Temperature 97.8 F Pulse Rate 83 Respiratory Rate 18 Blood Pressure 146/78 H Pulse Oximetry 100 Intake & Output 07/20/18 07/21/18 07/21/18 18:59 06:59 18:59 Intake Total 1050 / 1050 1953 / 1953 Output Total 1100 / 1100 Balance 1050 / 1050 853 / 853 Weight 106.05 kg Intake: IV 1050 / 1050 1473 / 1473 Privigen Inj 55 GM In Bag/ 550 / 550 Syringe 1 EACH @ 0.5 MG/KG/MIN 31.81 mls/hr IV.SIG TITRATE [facility] Rx#:[id number] NS Inj 1,000 ML @ 100 mls/hr IV 900 / 900 .SIG .Q10H PRN Rx#:[id number] NS Inj 500 ML @ 500 mls/hr IV. 500 / 500 SIG Q24H [facility] Rx#:[id number] Oral 480 / 480 Output: Urine 1100 / 1100 Other: Date of Last Bowel Movement 07/20/18 Weight On Admission 106.05 kg Result Diagrams: 07/21/18 04:49 07/21/18 04:49 Laboratory Results: Laboratory Results - last 24 hr 07/20/18 07/20/18 07/20/18 09:59 09:59 09:59 WBC 5.2 RBC 2.56 L Hgb 8.6 L Hct 27.0 L MCV 105.3 H MCH 33.4 MCHC 31.7 L RDW 16.6 Plt Count 105 L MPV 8.3 Prelim Diff (Auto) Neut % (Auto) 84.5 H Lymph % (Auto) 8.1 L [place] % (Auto) 7.0 Eos % (Auto) 0.3 Baso % (Auto) 0.1 Neut # (Auto) 4.4 Lymph # (Auto) 0.4 L [place] # (Auto) 0.4 Eos # (Auto) 0.0 Baso # (Auto) 0.0 WBC Differential . Seg Neuts % (Manual) Band Neuts % (Manual) Lymphocytes % (Manual) Monocytes % (Manual) Myelocytes % (Man) Abs Neuts (Manual) Differential Comment Auto diff final Platelet Estimate Platelet Morphology Tear Drop Cells PT INR APTT Fibrinogen 172 L Sodium 144 Potassium 4.7 Chloride 122 H Carbon Dioxide 15.7 L Anion Gap 6 BUN 24 H Creatinine 2.03 H Estimated GFR 42 L Random Glucose 96 Calcium 8.2 L Calcium Adj for Albumin Phosphorus Magnesium Total Bilirubin 0.3 AST 3 L ALT 17 Alkaline Phosphatase 30 L Total Protein 6.5 Albumin 4.7 Blood Bank Comment 07/20/18 07/21/18 07/21/18 19:54 03:47 04:49 WBC RBC Hgb Hct MCV MCH MCHC RDW Plt Count MPV Prelim Diff (Auto) Neut % (Auto) Lymph % (Auto) [place] % (Auto) Eos % (Auto) Baso % (Auto) Neut # (Auto) Lymph # (Auto) [place] # (Auto) Eos # (Auto) Baso # (Auto) WBC Differential Seg Neuts % (Manual) Band Neuts % (Manual) Lymphocytes % (Manual) Monocytes % (Manual) Myelocytes % (Man) Abs Neuts (Manual) Differential Comment Platelet Estimate Platelet Morphology Tear Drop Cells PT 15.5 H INR 1.5 APTT 52.8 H Fibrinogen 66 L* Sodium 143 Potassium 4.7 Chloride 121 H Carbon Dioxide 15.0 L Anion Gap 7 BUN 24 H Creatinine 2.51 H Estimated GFR 33 L Random Glucose 96 Calcium 7.4 L* D Calcium Adj for Albumin 7.2 L* Phosphorus 1.5 L Magnesium 1.5 Total Bilirubin 0.4 AST Less than 3 L ALT 8 L Alkaline Phosphatase 15 L Total Protein 6.1 L Albumin 4.3 Blood Bank Comment 07/21/18 07/21/18 04:49 04:49 WBC 3.6 L RBC 2.30 L Hgb 7.6 L Hct 23.8 L MCV 103.6 H MCH 33.2 MCHC 32.0 RDW 16.3 Plt Count 93 L MPV 8.7 Prelim Diff (Auto) Slide review pending Neut % (Auto) 88.5 H Lymph % (Auto) 7.7 L [place] % (Auto) 3.2 Eos % (Auto) 0.5 Baso % (Auto) 0.1 Neut # (Auto) 3.2 Lymph # (Auto) 0.3 L [place] # (Auto) 0.1 Eos # (Auto) 0.0 Baso # (Auto) 0.0 WBC Differential Manual diff final Seg Neuts % (Manual) 94 H Band Neuts % (Manual) 2 Lymphocytes % (Manual) 2 L Monocytes % (Manual) 1 Myelocytes % (Man) 1 H Abs Neuts (Manual) 3.5 Differential Comment . Platelet Estimate Low L Platelet Morphology Normal Tear Drop Cells 1+ H PT 14.3 H INR 1.4 APTT Fibrinogen 82 L* Sodium Potassium Chloride Carbon Dioxide Anion Gap BUN Creatinine Estimated GFR Random Glucose Calcium Calcium Adj for Albumin Phosphorus Magnesium Total Bilirubin AST ALT Alkaline Phosphatase Total Protein Albumin Blood Bank Comment Medications: Active Medications Generic Name Dose Route Start Last Admin Trade Name Freq PRN Reason Stop Dose Admin Acetaminophen 650 mg 07/20/18 13:30 07/20/18 18:27 Tylenol PO 07/21/18 13:29 650 mg Q24H [facility] Administration Aspirin 81 mg 07/21/18 09:00 07/21/18 08:55 Ecotrin PO 81 mg DAILY [facility] Administration Diphenhydramine HCl 25 mg 07/20/18 13:30 07/20/18 18:31 Benadryl PO 07/21/18 13:29 25 mg Q24H [facility] Administration Hydralazine HCl 50 mg 07/20/18 13:00 07/21/18 08:55 Apresoline PO 50 mg TID [facility] Administration Dextrose 500 mls @ 30 mls/hr 07/20/18 14:00 07/20/18 19:38 D5w Inj OTHER 07/21/18 13:59 30 mls/hr Q24H [facility] Administration Immune Globulin 55 gm/ 550 mls @ 31.81 mls/hr 07/20/18 14:00 07/21/18 00:16 Miscellaneous Medication IV.SIG 07/21/18 13:59 Infused TITRATE [facility] Titration Protocol 0.5 MG/KG/MIN Sodium Chloride 500 mls @ 500 mls/hr 07/20/18 13:30 07/20/18 19:39 Ns Inj IV.SIG 07/21/18 13:29 Infused Q24H [facility] Infusion Magnesium Oxide 800 mg 07/20/18 21:00 07/21/18 08:55 Mag-Ox PO 800 mg BID [facility] Administration Metoprolol Tartrate 25 mg 07/20/18 21:00 07/21/18 08:55 Lopressor PO 25 mg BID [facility] Administration Mycophenolate Mofetil 1,000 mg 07/20/18 18:00 07/21/18 06:37 Cellcept PO 1,000 mg BID@0600,1800 [facility] Administration Pantoprazole Sodium 40 mg 07/21/18 09:00 07/21/18 08:55 Protonix PO 40 mg DAILY [facility] Administration Potassium Phosphate 500 mg 07/21/18 09:00 07/21/18 08:55 K-Phos Original PO 500 mg DAILY [facility] Administration Prednisone 20 mg 07/21/18 09:00 07/21/18 08:55 Deltasone Liq PO 20 mg DAILY [facility] Administration Senna/Docusate Sodium 1 tab 07/20/18 21:00 07/21/18 09:26 Marilee-Colace PO Not Given BID [facility] Sodium Chloride 2 ml 07/20/18 21:00 07/21/18 08:56 Ns Flush IV.FLUSH 2 ml BID [facility] Administration Tacrolimus 4 mg 07/20/18 18:00 07/21/18 06:38 Prograf PO 4 mg BID@0600,1800 [facility] Administration Tacrolimus 5 mg 07/20/18 18:00 07/21/18 06:38 Prograf PO 5 mg BID@0600,1800 [facility] Administration Tamsulosin HCl 0.4 mg 07/21/18 09:00 07/21/18 08:55 Flomax PO 0.4 mg DAILY [facility] Administration Trimethoprim/Sulfamethoxazole 1 tab 07/20/18 11:00 07/20/18 16:11 Bactrim Ds PO Not Given MoWeFr [facility] Valganciclovir 450 mg 07/21/18 09:00 07/21/18 08:55 Valcyte PO 450 mg DAILY [facility] Administration Objective Remarks: GENERAL: Well-nourished, well-developed -[place] male patient, in no acute distress. SKIN: Warm and dry. Vas-Cath to right chest wall, dressing dry/intact. HEAD: Normocephalic. EYES: No scleral icterus. No injection or drainage. NECK: Supple, trachea midline. CARDIOVASCULAR: Regular rate and rhythm without murmurs. RESPIRATORY: Posterior breath sounds clear, equal bilaterally. No accessory muscle use. GASTROINTESTINAL: Abdomen soft, non-tender, nondistended. EXTREMITIES: No cyanosis, or edema. MUSCULOSKELETAL: Adequate muscle tone. NEUROLOGICAL: No obvious focal deficit. Awake, alert, and oriented x3. PSYCHIATRIC: Appropriate mood and affect; insight and judgment normal. Assessment/Plan - Plan Mr. Askew is a very pleasant 53-year-old gentleman, being seen by hematology for coordination of plasma exchange, IVIG and Rituxan for transplant rejection. Plan: 1. 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 He also received IVIG and Rituxan. Patient tolerated well. 2. Patient pending cryoprecipitate transfusion for fibrinogen of 82, today. 3. Calcium and phosphorus low, will defer to nephrology for possible correction. 4. Will await nephrology's recommendations for any further treatments.
[2018-07-21] MEDS ORDERED: Calcium Gluconate Inj 2 GM in Dextrose 5% in Water Inj 100 ML IV.SIG ONE ×2 (10:17)
[2018-07-21] MEDS ORDERED: Potassium Phos/Sodium Phos 250 MG Tablet PO ONE (10:45)
[2018-07-21] MEDS ORDERED: Magnesium Sulfate Inj 2 GM in Sodium Chlor 0.9% Inj 96 ML IV.SIG ONE (11:00)
--- NOTE | 2018-07-21 11:00 | P.PNTS ---
Subjective Interval history: Concerned about his creat level, o/w no new c/o Physical Exam Vital signs: Vital Signs 07/20/18 12:03 07/20/18 19:38 07/20/18 19:40 Temperature 97.8 F Pulse Rate 61 77 78 Respiratory Rate 16 16 16 Blood Pressure 143/82 H 110/67 110/67 Pulse Oximetry 100 100 07/20/18 19:50 07/20/18 20:10 07/20/18 21:01 Temperature 98.2 F 97.6 F Pulse Rate 76 68 71 Respiratory Rate 16 18 15 Blood Pressure 121/67 100/68 111/69 Pulse Oximetry 100 100 100 07/20/18 22:08 07/20/18 23:08 07/21/18 01:16 Temperature 97.9 F 97.8 F 98.5 F Pulse Rate 70 78 81 Respiratory Rate 15 18 18 Blood Pressure 124/74 135/78 131/81 Pulse Oximetry 100 100 100 07/21/18 02:16 07/21/18 04:15 07/21/18 06:33 Temperature 97.7 F 97.8 F 97.5 F L Pulse Rate 79 85 77 Respiratory Rate 16 16 18 Blood Pressure 135/80 154/82 H 141/88 H Pulse Oximetry 100 100 100 07/21/18 08:44 07/21/18 09:58 07/21/18 10:15 Temperature 97.8 F 98.1 F 98.7 F Pulse Rate 83 58 L 58 L Respiratory Rate 18 18 18 Blood Pressure 146/78 H 148/81 H 147/80 H Pulse Oximetry 100 100 100 Intake & Output 07/20/18 07/21/18 07/21/18 18:59 06:59 18:59 Intake Total 1050 / 1050 195 / 1953 Output Total 1100 / 1100 Balance 1050 / 1050 853 / 853 Weight 106.05 kg Intake: IV 1050 / 1050 1473 / 1473 Privigen Inj 55 GM In Bag/ 550 / 550 Syringe 1 EACH @ 0.5 MG/KG/MIN 31.81 mls/hr IV.SIG TITRATE [facility] Rx#:[id number] NS Inj 1,000 ML @ 100 mls/hr IV 900 / 900 .SIG .Q10H PRN Rx#:[id number] NS Inj 500 ML @ 500 mls/hr IV. 500 / 500 SIG Q24H [facility] Rx#:[id number] Oral 480 / 480 Intake (Blood Product) Amt 0 / 0 Pre-Pooled Cryo Thawed 10units 0 / 0 Unit [id number] Output: Urine 1100 / 1100 Other: Date of Last Bowel Movement 07/20/18 Weight On Admission 106.05 kg - Constitutional no acute distress - Routine HEENT Exam Head: Present: normocephalic, atraumatic Eye: Present: EOMI ENT: Present: mucous membranes moist - Routine Neck Exam Present: supple, full ROM - Routine Respiratory Exam Present: CTA bilaterally - Routine Cardiovascular Exam Present: RRR, S1, S2 - Routine Abdominal Exam Present: soft, normoactive bowel sounds - Routine Extremities Exam Present: pulses intact - Routine Skin Exam Present: intact - Routine Neurological Exam Present: alert, oriented X3 - Detailed Neurological Exam: Coma Scale Verbal Response: Oriented - Routine Psychiatric Exam Present: normal affect, normal thought process Results - Labs CBC & Chem 7: 07/21/18 04:49 07/21/18 04:49 Laboratory Results - last 24 hr 07/20/18 07/21/18 07/21/18 19:54 03:47 04:49 WBC RBC Hgb Hct MCV MCH MCHC RDW Plt Count MPV Prelim Diff (Auto) Neut % (Auto) Lymph % (Auto) [place] % (Auto) Eos % (Auto) Baso % (Auto) Neut # (Auto) Lymph # (Auto) [place] # (Auto) Eos # (Auto) Baso # (Auto) WBC Differential Seg Neuts % (Manual) Band Neuts % (Manual) Lymphocytes % (Manual) Monocytes % (Manual) Myelocytes % (Man) Abs Neuts (Manual) Differential Comment Platelet Estimate Platelet Morphology Tear Drop Cells PT 15.5 H INR 1.5 APTT 52.8 H Fibrinogen 66 L* Sodium 143 Potassium 4.7 Chloride 121 H Carbon Dioxide 15.0 L Anion Gap 7 BUN 24 H Creatinine 2.51 H Estimated GFR 33 L Random Glucose 96 Calcium 7.4 L* D Calcium Adj for Albumin 7.2 L* Phosphorus 1.5 L Magnesium 1.5 Total Bilirubin 0.4 AST Less than 3 L ALT 8 L Alkaline Phosphatase 15 L Total Protein 6.1 L Albumin 4.3 Blood Bank Comment 07/21/18 07/21/18 04:49 04:49 WBC 3.6 L RBC 2.30 L Hgb 7.6 L Hct 23.8 L MCV 103.6 H MCH 33.2 MCHC 32.0 RDW 16.3 Plt Count 93 L MPV 8.7 Prelim Diff (Auto) Slide review pending Neut % (Auto) 88.5 H Lymph % (Auto) 7.7 L [place] % (Auto) 3.2 Eos % (Auto) 0.5 Baso % (Auto) 0.1 Neut # (Auto) 3.2 Lymph # (Auto) 0.3 L [place] # (Auto) 0.1 Eos # (Auto) 0.0 Baso # (Auto) 0.0 WBC Differential Manual diff final Seg Neuts % (Manual) 94 H Band Neuts % (Manual) 2 Lymphocytes % (Manual) 2 L Monocytes % (Manual) 1 Myelocytes % (Man) 1 H Abs Neuts (Manual) 3.5 Differential Comment . Platelet Estimate Low L Platelet Morphology Normal Tear Drop Cells 1+ H PT 14.3 H INR 1.4 APTT Fibrinogen 82 L* Sodium Potassium Chloride Carbon Dioxide Anion Gap BUN Creatinine Estimated GFR Random Glucose Calcium Calcium Adj for Albumin Phosphorus Magnesium Total Bilirubin AST ALT Alkaline Phosphatase Total Protein Albumin Blood Bank Comment Assessment and Plan - Assessment (1) Kidney transplant recipient Code(s): Z94.0 - Kidney transplant status Status: Acute (2) Acute rejection of kidney transplant Code(s): T86.11 - Kidney transplant rejection Status: Acute (3) Hypertension Code(s): I10 - Essential (primary) hypertension Status: Chronic - Plan Patient s/p renal transplant on 05/15/18 with ABMR. Received 8th plasmapheresis yesterday.Also IVIG, and rituximab overnight. Some electrolyte abnormalities noted this morning. Will replete. Creat 2.51 this morning, repeat BMP pending. Will plan to monitor. Weekly DSAs planned. Repeat Rituximab planned in 2 weeks. Okay with discharge home later today. (3) Hypertension Qualifiers: Hypertension type: essential hypertension Qualified Code(s): I10 - Essential (primary) hypertension
[2018-07-21 11:33] LABS: Calcium 7.7 mg/dL (8.5-10.1); Potassium 4.9 meq/L (3.5-5.1)
--- NOTE | 2018-07-21 12:12 | P.PNNP ---
Subjective Interval history: Patient is alert, sitting on the chair, no SOB, eating better. Physical Exam Vital signs: Vital Signs 07/20/18 19:38 07/20/18 19:40 07/20/18 19:50 Temperature Pulse Rate 77 78 76 Respiratory Rate 16 16 16 Blood Pressure 110/67 110/67 121/67 Pulse Oximetry 100 100 07/20/18 20:10 07/20/18 21:01 07/20/18 22:08 Temperature 98.2 F 97.6 F 97.9 F Pulse Rate 68 71 70 Respiratory Rate 18 15 15 Blood Pressure 100/68 111/69 124/74 Pulse Oximetry 100 100 100 07/20/18 23:08 07/21/18 01:16 07/21/18 02:16 Temperature 97.8 F 98.5 F 97.7 F Pulse Rate 78 81 79 Respiratory Rate 18 18 16 Blood Pressure 135/78 131/81 135/80 Pulse Oximetry 100 100 100 07/21/18 04:15 07/21/18 06:33 07/21/18 08:44 Temperature 97.8 F 97.5 F L 97.8 F Pulse Rate 85 77 83 Respiratory Rate 16 18 18 Blood Pressure 154/82 H 141/88 H 146/78 H Pulse Oximetry 100 100 100 07/21/18 09:58 07/21/18 10:15 07/21/18 10:57 Temperature 98.1 F 98.7 F 98.7 F Pulse Rate 58 L 58 L 61 Respiratory Rate 18 18 18 Blood Pressure 148/81 H 147/80 H 140/74 Pulse Oximetry 100 100 100 07/21/18 11:13 Temperature 98.8 F Pulse Rate 64 Respiratory Rate 18 Blood Pressure 142/74 H Pulse Oximetry 100 Intake & Output 07/20/18 07/21/18 07/21/18 18:59 06:59 18:59 Intake Total 5800 / 5800 1050 / 1050 2212 / 2212 Output Total 1100 / 1100 Balance 5800 / 5800 1050 / 1050 1112 / 1112 Weight 106.05 kg Intake: IV 5800 / 5800 1050 / 1050 1503 / 1503 Privigen Inj 55 GM In Bag/ 550 / 550 Syringe 1 EACH @ 0.5 MG/KG/MIN 31.81 mls/hr IV.SIG TITRATE [facility] Rx#:[id number] NS Inj 1,000 ML @ 100 mls/hr IV 900 / 900 .SIG .Q10H PRN Rx#:[id number] NS Inj 500 ML @ 500 mls/hr IV. 500 / 500 SIG Q24H [facility] Rx#:[id number] D5W Inj 500 ML @ 30 mls/hr 30 / 30 OTHER Q24H [facility] Rx#:[id number] Oral 480 / 480 Intake (Blood Product) Amt 229 / 229 Pre-Pooled Cryo Thawed 10units 0 / 0 Unit [id number] Pre-Pooled Cryo Thawed 10units 229 / 229 Unit [id number] Output: Urine 1100 / 1100 Other: Date of Last Bowel Movement 07/20/18 Weight On Admission 106.05 kg Narrative: GENERAL: Well-nourished, well-developed patient. SKIN: Warm and dry. HEAD: Normocephalic. EYES: No scleral icterus. No injection or drainage. NECK: Supple, trachea midline. No JVD or lymphadenopathy. CARDIOVASCULAR: Regular rate and rhythm without murmurs, gallops, or rubs. RESPIRATORY: Breath sounds equal bilaterally. No accessory muscle use. GASTROINTESTINAL: Abdomen soft, non-tender, nondistended. EXTREMITIES: No edema NEUROLOGICAL: Awake, alert, and oriented x 3. Non-focal. Assessment and Plan - Assessment (1) Acute rejection of kidney transplant Code(s): T86.11 - Kidney transplant rejection Status: Acute Plan: Patient was admitted for plasmapheresis followed by IVIG, this will be followed by rituximab 730 mg IV, Continue with prednisone 20 mg daily, Prograf 9 mg twice daily, CellCept 1000 mg twice daily. For discharge today in the afternoon. To follow with Dr. White in transplant clinic. (2) Hypertension Code(s): I10 - Essential (primary) hypertension Status: Chronic Qualifiers: Hypertension type: essential hypertension Qualified Code(s): I10 - Essential (primary) hypertension Plan: On metoprolol and hydralazine continue to monitor (3) Kidney transplant recipient Code(s): Z94.0 - Kidney transplant status Status: Acute Plan: On prednisone, Prograf and CellCept follow renal functions
[2018-07-21 12:17] VITALS: BP 131/69; PULSE 69; TEMP 98.4
== END 2018-07-21 16:29 | disposition home or self-care (01) ==
LOC: INTOOBSV 08:20 → HCIN 08:20
PROVIDERS: ADMIT Internal Medicine Nephrology; ATTEND Internal Medicine Nephrology
CPT/HCPCS: 36514; 76937; 80048; 80053; 80197; 83735; 84100; 85025; 85384; 85610; 85730; 86965; 90765; 90766; 90775; 96361; 96365; 96366; 96367; 96375; G0378; J0610; J1459; J3475; J7030; J7040; J7050; J7060; J7506; J7507; J7512; J7517; J9310; J9312; P9045; Q0163